=== PATIENT | female | born 1945 | race Caucasian/White ===

== ENCOUNTER 2019-11-08 15:24 | Inpatient (IN) | payer MEDICARE ==
[2019-11-08] MEDS ORDERED: SODIUM CHLORIDE 0.9% 1,000 ML IV STA ×2 (16:03)
[2019-11-08] MEDS ORDERED: VANCOMYCIN IV PER PHARMACY 1 EACH MISC MISCELLANE PRN (16:04)
[2019-11-08] MEDS ORDERED: cefTRIAXone IN SWFI 1,000 MG/10 ML SYRINGE IVP STA (16:04)
[2019-11-08] MEDS ORDERED: SODIUM CHLORIDE 0.9% 500 ML 500 ML IV ONE (16:05)
[2019-11-08] MEDS ORDERED: VANCOMYCIN 2,000 MG in SODIUM CHLORIDE 0.9% 500 ML 500 ML IVPB STA (16:11)
[2019-11-08 16:34] LABS: HCT 33.3 % (34.0-46.0); HGB 10.9 gm/dL (11.4-16.0); MCH 27.7 pg (25.0-35.0); MCHC 32.6 g/dL (31.0-37.0); MCV 84.9 fL (80.0-100.0); Platelet Count 449 k/uL (150-450); RBC 3.93 m/uL (3.80-5.40); RDW 15.2 % (11.5-15.5); WBC 30.4 k/uL (3.8-10.6)
[2019-11-08 16:44] LABS: ALT 22 U/L (4-34); AST 36 U/L (14-36); African American GFR (CKD) >90 (>60 ml/min/1.73 sqM); Albumin 3.1 g/dL (3.5-5.0); Alkaline Phosphatase 157 U/L (38-126); Anion Gap 15 mmol/L; Blood Urea Nitrogen 21 mg/dL (7-17); Calcium 9.1 mg/dL (8.4-10.2); Carbon Dioxide 20 mmol/L (22-30); Chloride 93 mmol/L (98-107); Glucose 403 mg/dL (74-99); Magnesium 1.9 mg/dL (1.6-2.3); Non-African American GFR(CKD) 86 (>60 ml/min/1.73 sqM); Sodium 128 mmol/L (137-145); Total Bilirubin 0.9 mg/dL (0.2-1.3); Total Protein 6.7 g/dL (6.3-8.2)
[2019-11-08 16:58] LABS: Band Neutrophils % 2 %; Lymphocytes # (M) 1.22 k/uL (1.0-4.8); Monocytes # (M) 1.22 k/uL (0-1.0); Neutrophils % (M) 90 %; Nucleated Red Blood Cells 0 /100 WBC (0-0); Total Cells Counted 200
[2019-11-08 16:59] LABS: Prothrombin Time 10.4 sec (9.0-12.0)
[2019-11-08 17:00] LABS: Partial Thromboplastin Time 22.8 sec (22.0-30.0)
--- NOTE | 2019-11-08 17:12 | ED ---
General Adult HPI - General Chief complaint: Weakness Stated complaint: weakness/wound care Time Seen by Provider: 11/08/19 15:46 Source: patient, RN notes reviewed, old records reviewed Mode of arrival: ambulatory Limitations: no limitations - History of Present Illness Initial comments: 74-year-old female presenting for evaluation of weakness, poor appetite, and erythema, swelling and drainage from the right foot. Patient is a diabetic. She has noted some drainage and discoloration of the right foot for the past 3 weeks. She had previous amputation in the remote past. She denies fever. She states she just has not felt well, she's been lightheaded, poor appetite. She denies significant pain in the foot at rest but does report pain with am bulation. - Related Data Home Medications Medication Instructions Recorded Confirmed Aspirin 81 mg PO DAILY 07/14/13 03/22/15 Carvedilol 25 mg PO BID 07/14/13 03/22/15 Furosemide [Lasix] 40 mg PO DAILY 07/14/13 03/22/15 Insulin Glargine [Lantus] 60 unit SQ HS 07/14/13 03/22/15 lisinopriL [Zestril] 2.5 mg PO DAILY 07/14/13 03/22/15 Atorvastatin [Lipitor] 20 mg PO DAILY 06/03/14 03/22/15 Cholecalciferol [Vitamin D3 (25 2,000 unit PO DAILY 06/03/14 03/22/15 Mcg = 1000 Iu)] Insulin Lispro [humaLOG Kwikpen] 10 unit SQ 1200 03/18/15 03/22/15 Insulin Lispro [humaLOG Kwikpen] 10 unit SQ QAM 03/18/15 03/22/15 Insulin Lispro [humaLOG Kwikpen] 30 unit SQ W/SUPPER 03/18/15 03/22/15 Allergies Allergy/AdvReac Type Severity Reaction Status Date / Time clindamycin Allergy Rash/Hives Verified 11/08/19 15:37 Iodinated Contrast Media Allergy Rash/Hives Verified 11/08/19 15:37 [Iodinated Contrast Media - IV Dye] Penicillins Allergy Rapid Verified 11/08/19 15:37 Heart Rate & SOB CRANBERRIES Allergy Rash/Hives Uncoded 11/08/19 15:37 Review of Systems ROS Statement: Those systems with pertinent positive or pertinent negative responses have been documented in the HPI. ROS Other: All systems not noted in ROS Statement are negative. Past Medical History Past Medical History: Diabetes Mellitus, Deep Vein Thrombosis (DVT), Hyperlipidemia, Skin Disorder, Vascular Disorder Additional Past Medical History / Comment(s): see Dr Harvey H&P, PERIPHERAL VASCULAR DISEASE, DVT RT LEG 2013, hernia, hx pancreatitis, bulging disk, arthritis, dry skin Last Myocardial Infarction Date:: 2006 History of Any Multi-Drug Resistant Organisms: None Reported Past Surgical History: AICD, Cholecystectomy, Heart Catheterization With Stent, Orthopedic Surgery Additional Past Surgical History / Comment(s): amputation small toe rt foot. Past Anesthesia/Blood Transfusion Reactions: No Reported Reaction Date of Last Stent Placement:: 2006 Type of Cardiac Device: AICD Device Placement Date:: 2006 [facility] Past Psychological History: No Psychological Hx Reported Smoking Status: Never smoker Past Alcohol Use History: None Reported Past Drug Use History: None Reported - Past Family History Father Family Medical History: Cancer General Exam Limitations: no limitations General appearance: alert, in no apparent distress Head exam: Present: atraumatic, normocephalic Eye exam: Present: normal appearance, PERRL ENT exam: Present: normal exam Respiratory exam: Present: normal lung sounds bilaterally. Absent: respiratory distress, wheezes Cardiovascular Exam: Present: regular rate, normal rhythm GI/Abdominal exam: Present: soft. Absent: distended, tenderness, guarding Extremities exam: Present: other (Right foot, there is significant soft tissue swelling, erythema, ulceration on the plantar surface with surrounding necrotic tissue oh. There is some purulent drainage as well. There is swelling throughout the foot and ankle. Delayed cap refill.) Neurological exam: Present: alert, oriented X3, CN II-XII intact. Absent: motor sensory deficit Psychiatric exam: Present: normal affect, normal mood Course Vital Signs 11/08/19 15:33 Temperature 98.6 F Pulse Rate 60 Respiratory 18 Rate Blood Pressure 91/56 O2 Sat by Pulse 96 Oximetry EKG Findings - EKG Comments: EKG Findings:: EKG: Sinus rhythm with a first-degree AV block Q waves inferior leads with T-wave inversion, no ST segment elevation rate of 74, DE interval 210, QRS duration 124, QTC 483. Procedures - Sepsis Sepsis Focused Exam #1 Time Sepsis Criteria Met: 16:30 Sepsis Focused Exam Complete: Yes Vital Signs & RN Notes Reviewed: Yes Capillary Refill: < 2 Seconds: Fingers, > 2 Seconds: Toes Peripheral Pulses: Normal: Radial (R), Radial (L) Skin Color: Normal for Patient Respiratory Exam: normal lung sounds Cardiovascular Exam: regular rate, normal rhythm Medical Decision Making - Medical Decision Making 74-year-old female presenting with right foot infection, generalized weakness. Patient has a significant soft tissue infection of the right foot ulceration and necrotic tissue. The foot is swollen, erythematous. She is afebrile with initial blood pressure in the 90s otherwise stable. X-ray showing this ulceration, no signs of osteomyelitis. She has a significantly elevated white blood cell count of 30,000. Normal lactic acid. Hyponatremia with sodium 128. She started on ceftriaxone and vancomycin in the emergency department. She's been admitted to internal medicine with both infectious disease and vascular surgery on consult. - Lab Data Result diagrams: 11/08/19 16:18 11/08/19 16:18 Lab Results 11/08/19 11/08/19 11/08/19 Range/Units 16:18 16:18 16:18 WBC 30.4 H (3.8-10.6) k/uL RBC 3.93 (3.80-5.40) m/uL Hgb 10.9 L (11.4-16.0) gm/dL Hct 33.3 L (34.0-46.0) % MCV 84.9 (80.0-100.0) fL MCH 27.7 (25.0-35.0) pg MCHC 32.6 (31.0-37.0) g/dL RDW 15.2 (11.5-15.5) % Plt Count 449 (150-450) k/uL Neutrophils % (Manual) 90 % Band Neutrophils % 2 % Lymphocytes % (Manual) 4 % Monocytes % (Manual) 4 % Neutrophils # (Manual) 27.90 H (1.3-7.7) k/uL Lymphocytes # (Manual) 1.22 (1.0-4.8) k/uL Monocytes # (Manual) 1.22 H (0-1.0) k/uL Nucleated RBCs 0 (0-0) /100 WBC Manual Slide Review Performed PT 10.4 (9.0-12.0) sec INR 1.0 (<1.2) APTT 22.8 (22.0-30.0) sec Sodium 128 L (137-145) mmol/L Potassium 5.0 (3.5-5.1) mmol/L Chloride 93 L (98-107) mmol/L Carbon Dioxide 20 L (22-30) mmol/L Anion Gap 15 mmol/L BUN 21 H (7-17) mg/dL Creatinine 0.68 (0.52-1.04) mg/dL Est GFR (CKD-EPI)AfAm >90 (>60 ml/min/1.73 sqM) Est GFR (CKD-EPI)NonAf 86 (>60 ml/min/1.73 sqM) Glucose 403 H (74-99) mg/dL Plasma Lactic Acid Otis (0.7-2.0) mmol/L Calcium 9.1 (8.4-10.2) mg/dL Magnesium 1.9 (1.6-2.3) mg/dL Total Bilirubin 0.9 (0.2-1.3) mg/dL AST 36 (14-36) U/L ALT 22 (4-34) U/L Alkaline Phosphatase 157 H (38-126) U/L Total Protein 6.7 (6.3-8.2) g/dL Albumin 3.1 L (3.5-5.0) g/dL 11/08/19 Range/Units 16:18 WBC (3.8-10.6) k/uL RBC (3.80-5.40) m/uL Hgb (11.4-16.0) gm/dL Hct (34.0-46.0) % MCV (80.0-100.0) fL MCH (25.0-35.0) pg MCHC (31.0-37.0) g/dL RDW (11.5-15.5) % Plt Count (150-450) k/uL Neutrophils % (Manual) % Band Neutrophils % % Lymphocytes % (Manual) % Monocytes % (Manual) % Neutrophils # (Manual) (1.3-7.7) k/uL Lymphocytes # (Manual) (1.0-4.8) k/uL Monocytes # (Manual) (0-1.0) k/uL Nucleated RBCs (0-0) /100 WBC Manual Slide Review PT (9.0-12.0) sec INR (<1.2) APTT (22.0-30.0) sec Sodium (137-145) mmol/L Potassium (3.5-5.1) mmol/L Chloride (98-107) mmol/L Carbon Dioxide (22-30) mmol/L Anion Gap mmol/L BUN (7-17) mg/dL Creatinine (0.52-1.04) mg/dL Est GFR (CKD-EPI)AfAm (>60 ml/min/1.73 sqM) Est GFR (CKD-EPI)NonAf (>60 ml/min/1.73 sqM) Glucose (74-99) mg/dL Plasma Lactic Acid Otis 1.2 (0.7-2.0) mmol/L Calcium (8.4-10.2) mg/dL Magnesium (1.6-2.3) mg/dL Total Bilirubin (0.2-1.3) mg/dL AST (14-36) U/L ALT (4-34) U/L Alkaline Phosphatase (38-126) U/L Total Protein (6.3-8.2) g/dL Albumin (3.5-5.0) g/dL Critical Care Time Critical Care Time: Yes Total Critical Care Time: 35 Disposition Clinical Impression: Diabetic foot ulcer, Cellulitis, Sepsis Disposition: ADMITTED IP TO THIS [facility] Condition: Stable Is patient prescribed a controlled substance at d/c from ED?: No Referrals: Richard Rodriguez DO [Primary Care Provider] - 1-2 days Decision to Admit Reason: Admit from EC Decision Date: 11/08/19 Decision Time: 17:54
--- NOTE | 2019-11-08 17:13 | XR ---
EXAMINATION TYPE: XR foot complete RT DATE OF EXAM: 11/08/2019 COMPARISON: NONE HISTORY: Soft tissue infection TECHNIQUE: 3 views FINDINGS: There is absence of the little toe and the fifth metatarsal head. There is soft tissue swel ling of the forefoot. There is soft tissue swelling on the plantar aspect of the mid and hindfoot. Th ere is large plantar calcaneal spur. There is also defect on the plantar aspect of the mid foot. Ther e is sclerosis and some spurring at the tarsometatarsal joints. IMPRESSION: Soft tissue swelling. Ulceration deformity. No specific sign of osteomyelitis. There is p robably some neuropathic arthropathy in the mid foot.
[2019-11-08] MEDS ORDERED: NALOXONE 0.4 MG/ML 1 ML VIAL IV PRN (17:49)
[2019-11-08] MEDS ORDERED: METOCLOPRAMIDE 5 MG/ML 2 ML VIAL IVP STA (19:33)
[2019-11-08] MEDS ORDERED: CALCIUM CARBONATE 500 MG CHEWABLE PO PRN (21:03)
[2019-11-08] MEDS ORDERED: MAGNESIUM HYDROXIDE 2,400 MG/10 ML CUP PO PRN (21:03)
[2019-11-08] MEDS ORDERED: MAG HYDROX/AL HYDROX/SIMETH 30 ML CUP PO PRN (21:03)
[2019-11-08] MEDS ORDERED: LACTULOSE 20 GM/30 ML CUP PO PRN (21:03)
--- NOTE | 2019-11-08 21:29 | P.HPIM ---
History of Present Illness H&P Date: 11/08/19 Chief Complaint: infected draining right foot History of presenting complaint: This is a pleasant 74-year-old patient of Dr. Rodriguez. Chronic stable medical conditions include hyperlipidemia, diabetic peripheral neuropathy, peripheral arterial disease, deviated the right leg 2012, herniated disc, primary osteoarthritis coronary artery disease with stent. Patient lives at home with her son. Pretty much using a wheelchair. However 3 weeks ago she noticed a callus at the bottom of the foot. It opened up. She and she was using her own treatment including putting alcohol swabs in it. It progressed to get worse started draining more. One of patient's daughter called in today and decided bring the patient to the ER. Right foot is draining swollen edema is. Patient has neuropathy has does not have any pain in the foot. Has lost appetite for last 3 weeks. Denies any obvious fever and chills. Daughter the bedside. Patient lives with her son Bowen. Who works at the [employer] store. Review of systems: GEN.: Tired decreased appetite EYES: None HEENT: None NECK: None RESPIRATORY: None CARDIOVASCULAR: None GASTROINTESTINAL: None GENITOURINARY: None MUSCULOSKELETAL: Joint pains LYMPHATICS: None HEMATOLOGICAL: None PSYCHIATRY: None NEUROLOGICAL: Peripheral neuropathy Past medical history to include: Diabetes, hyperlipidemia, peripheral artery disease, DVT in the right leg 2012, and tinnitus, herniated disc, arthritis, coronary artery disease with stent, AICD Social history: Patient smoked for many years stopped in 2006. The throat is unremarkable. Normally uses a wheelchair to get about. Physical examination: VITAL SIGNS: 100.2, 80, 19, 131/70, 98% on room air GENERAL: 38.7, laying in bed tired appearing awake. EYES: Pupils equal. Conjunctiva normal. HEENT: External appearance of nose and ears normal, oral cavity grossly normal. NECK: JVD not raised; masses not palpable. HEART: First and second heart sounds are normal; no edema. LUNGS: Respiratory rate normal; decreased breath sounds. ABDOMEN: Soft, nontender, liver spleen not palpable, no masses palpable. PSYCH: Alert and oriented x3; mood and affect normal. NEUROLOGICAL: [Cranial nerves grossly intact; no facial asymmetry, decreased sensation distally EXTREMITY: Right foot is covered redness swollen large callus that is broken down at the plantar service for drainage boggy foot LYMPHATICS: No lymph nodes palpable in the axilla and neck INVESTIGATIONS, reviewed in the clinical context: White count 30.4 hemoglobin 10.9 increased neutrophils sodium 128 potassium 5 creatinine 0.68 glucose 403, albumin 3.1 EKG tracing personally reviewed by me-normal sinus rhythm nonspecific ST segment changes Foot x-ray soft tissue swelling no obvious signs of osteomyelitis some findings of neuropathy, arthropathy Assessment: -This is a patient with diabetic peripheral neuropathy no sensation to foot noticed 3 weeks ago callus that broke down foot has been swollen and draining. This is a very large opening on the bottom of the foot very infected. More likely than not patient would probably need amputation. We'll have the final determination done by vascular surgery were consulted. -Right foot severe cellulitis with abscess causing sepsis -Right foot diabetic foot wound on the plantar surface -Obesity BMI 38.7 -Diabetes mellitus type 2 chronically on insulin uncontrolled with hypoglycemia -Coronary artery disease per history of stent -Hyper lipidemia -Essential hypertension -Peripheral arterial disease -Primary osteoarthritis -AICD Plan: Care was discussed with the patient and daughter the bedside. Did discuss the possibility of amputation. Patient started on vancomycin and will put the patient on cefepime. Auscultation made to vascular surgery 90. Home medications will be resumed. Lovenox for DVT prophylaxis. Will also consult cardiology for perioperative management. Past Medical History Past Medical History: Diabetes Mellitus, Deep Vein Thrombosis (DVT), Hyperlipidemia, Skin Disorder, Vascular Disorder Additional Past Medical History / Comment(s): see Dr Harvey H&P, PERIPHERAL VASCULAR DISEASE, DVT RT LEG 2012, hernia, hx pancreatitis, bulging disk, arthritis, dry skin Last Myocardial Infarction Date:: 2006 History of Any Multi-Drug Resistant Organisms: None Reported Past Surgical History: AICD, Cholecystectomy, Heart Catheterization With Stent, Orthopedic Surgery Additional Past Surgical History / Comment(s): amputation small toe rt foot. Past Anesthesia/Blood Transfusion Reactions: No Reported Reaction Date of Last Stent Placement:: 2006 Type of Cardiac Device: AICD Device Placement Date:: 2006 [facility] Past Psychological History: No Psychological Hx Reported Smoking Status: Never smoker Past Alcohol Use History: None Reported Past Drug Use History: None Reported - Past Family History Father Family Medical History: Cancer Medications and Allergies Home Medications Medication Instructions Recorded Confirmed Type Aspirin 81 mg PO DAILY 07/14/13 03/22/15 History Carvedilol 25 mg PO BID 07/14/13 03/22/15 History Furosemide [Lasix] 40 mg PO DAILY 07/14/13 03/22/15 History Insulin Glargine [Lantus] 60 unit SQ HS 07/14/13 03/22/15 History lisinopriL [Zestril] 2.5 mg PO DAILY 07/14/13 03/22/15 History Atorvastatin [Lipitor] 20 mg PO DAILY 06/03/14 03/22/15 History Cholecalciferol [Vitamin D3 (25 2,000 unit PO DAILY 06/03/14 03/22/15 History Mcg = 1000 Iu)] Insulin Lispro [humaLOG Kwikpen] 10 unit SQ 1200 03/18/15 03/22/15 History Insulin Lispro [humaLOG Kwikpen] 10 unit SQ QAM 03/18/15 03/22/15 History Insulin Lispro [humaLOG Kwikpen] 30 unit SQ W/SUPPER 03/18/15 03/22/15 History Allergies Allergy/AdvReac Type Severity Reaction Status Date / Time clindamycin Allergy Rash/Hives Verified 11/08/19 21:19 Iodinated Contrast Media Allergy Rash/Hives Verified 11/08/19 21:19 [Iodinated Contrast Media - IV Dye] Penicillins Allergy Rapid Verified 11/08/19 21:19 Heart Rate & SOB CRANBERRIES Allergy Rash/Hives Uncoded 11/08/19 21:19 Physical Exam Vitals: Vital Signs Temp Pulse Pulse Resp BP BP Pulse Ox 11/08/19 20:34 100.2 F H 80 19 131/70 98 11/08/19 19:00 98.4 F 16 L 18 136/72 96 11/08/19 18:24 73 16 131/73 98 11/08/19 15:33 98.6 F 60 18 91/56 96 Intake and Output 11/08/19 11/08/19 11/08/19 06:59 14:59 22:59 Other: Weight 108.862 kg Results CBC & Chem 7: 11/08/19 16:18 11/08/19 16:18 Labs: Abnormal Lab Results - Last 24 Hours (Table) 11/08/19 11/08/19 Range/Units 16:18 16:18 WBC 30.4 H (3.8-10.6) k/uL Hgb 10.9 L (11.4-16.0) gm/dL Hct 33.3 L (34.0-46.0) % Neutrophils # (Manual) 27.90 H (1.3-7.7) k/uL Monocytes # (Manual) 1.22 H (0-1.0) k/uL Sodium 128 L (137-145) mmol/L Chloride 93 L (98-107) mmol/L Carbon Dioxide 20 L (22-30) mmol/L BUN 21 H (7-17) mg/dL Glucose 403 H (74-99) mg/dL Alkaline Phosphatase 157 H (38-126) U/L Albumin 3.1 L (3.5-5.0) g/dL
[2019-11-08 21:43] LABS: Glucose,Whole Blood 441 mg/dL (75-99)
[2019-11-08] MEDS ORDERED: INSULIN ASPART (NovoLOG) 100 UNIT/ML VIAL SQ PRN ×2 (21:59)
[2019-11-08 23:22] LABS: Glucose,Whole Blood 423 mg/dL (75-99)
[2019-11-08] MEDS: CEFEPIME 1 GM in SODIUM CHLORIDE 0.9% 50 ML IVPB SCH (23:42)
[2019-11-08] MEDS: ACETAMINOPHEN TAB 325 MG TAB PO PRN (23:47)
[2019-11-08] MEDS: MELATONIN 3 MG TABLET PO PRN (23:47)
[2019-11-08] MEDS: PANTOPRAZOLE 40 MG TABLET PO SCH (23:47)
[2019-11-08] MEDS: INSULIN DETEMIR (LEVEMIR) 100 UNIT/ML SYR SQ SCH (23:48)
[2019-11-08] MEDS: INSULIN ASPART (NovoLOG) 100 UNIT/ML VIAL SQ SCH (23:48)
[2019-11-09 04:21] LABS: Glucose,Whole Blood 222 mg/dL (75-99)
[2019-11-09] MEDS: VANCOMYCIN 1,750 MG in SODIUM CHLORIDE 0.9% 500 ML 500 ML IVPB SCH (06:00)
[2019-11-09 07:29] LABS: Glucose,Whole Blood 154 mg/dL (75-99)
[2019-11-09] MEDS: INSULIN ASPART (NovoLOG) 100 UNIT/ML VIAL SQ SCH ×4 (07:47→21:02)
[2019-11-09] MEDS: PANTOPRAZOLE 40 MG TABLET PO SCH ×2 (07:48→17:34)
[2019-11-09] MEDS: ATORVASTATIN 20 MG TAB PO SCH (07:48)
[2019-11-09] MEDS: ASPIRIN 81 MG PO SCH (07:48)
[2019-11-09] MEDS: CEFEPIME 1 GM in SODIUM CHLORIDE 0.9% 50 ML IVPB SCH ×2 (09:30→21:04)
[2019-11-09 11:52] LABS: Glucose,Whole Blood 151 mg/dL (75-99)
[2019-11-09] MEDS: ACETAMINOPHEN TAB 325 MG TAB PO PRN ×2 (12:02→19:28)
[2019-11-09 12:51] VITALS: BMI 38.7
--- NOTE | 2019-11-09 15:32 | P.PN ---
Progress Note - Text Progress Note Date: 11/09/19 Chief Complaint: infected draining right foot History of presenting complaint: This is a pleasant 74-year-old patient of Dr. Rodriguez. Chronic stable medical conditions include hyperlipidemia, diabetic peripheral neuropathy, peripheral arterial disease, deviated the right leg 2013, herniated disc, primary osteoarthritis coronary artery disease with stent. Patient lives at home with her son. Pretty much using a wheelchair. However 3 weeks ago she noticed a callus at the bottom of the foot. It opened up. She and she was using her own treatment including putting alcohol swabs in it. It progressed to get worse started draining more. One of patient's daughter called in today and decided bring the patient to the ER. Right foot is draining swollen edema is. Patient has neuropathy has does not have any pain in the foot. Has lost appetite for last 3 weeks. Denies any obvious fever and chills. Daughter the bedside. Patient lives with her son Bowen. Who works at the [employer] store. Today-laying in bed. Physically better. Was able to tolerate a liquid diet. Less nausea. Accu-Cheks are better. Her daughter the bedside. On IV antibiotics. Review of systems: Was done for constitutional, cardiovascular, GI, pulmonary. relevant finding as above Active Medications Acetaminophen (Tylenol Tab) 650 mg PO Q6HR PRN PRN Reason: Mild Pain or Fever > 100.5 Last Admin: 11/09/19 12:02 Dose: 650 mg Documented by: Al Hydroxide/Mg Hydroxide (Maalox) 15 ml PO Q6HR PRN PRN Reason: Indigestion Aspirin (Aspirin) 81 mg PO DAILY [facility] Last Admin: 11/09/19 07:48 Dose: 81 mg Documented by: Atorvastatin Calcium (Lipitor) 20 mg PO DAILY [facility] Last Admin: 11/09/19 07:48 Dose: 20 mg Documented by: Calcium Carbonate/Glycine (Tums) 1,000 mg PO Q4HR PRN PRN Reason: Dyspepsia Vancomycin HCl 1,750 mg/ (Sodium Chloride) 500 mls @ 167 mls/hr IVPB Q16H [facility] Last Admin: 11/09/19 06:00 Dose: 167 mls/hr Documented by: Cefepime HCl 1 gm/ Sodium (Chloride) 50 mls @ 12.5 mls/hr IVPB Q12HR [facility] Last Admin: 11/09/19 09:30 Dose: 12.5 mls/hr Documented by: Insulin Aspart (Novolog) 0 unit SQ ACHS [facility]; Protocol Last Admin: 11/09/19 12:00 Dose: 2 unit Documented by: Insulin Aspart (Novolog) 12 unit SQ ACHS PRN PRN Reason: Blood Sugar - High Last Admin: 11/08/19 23:48 Dose: 12 unit Documented by: Insulin Aspart (Novolog) 6 unit SQ ACHS PRN PRN Reason: Blood Sugar - High Insulin Detemir (Levemir) 60 unit SQ HS [facility] Last Admin: 11/08/19 23:48 Dose: 60 unit Documented by: Lactulose (Cephulac) 20 gm PO DAILY PRN PRN Reason: Constipation Lisinopril (Zestril) 2.5 mg PO DAILY [facility] Last Admin: 11/09/19 07:48 Dose: 2.5 mg Documented by: Magnesium Hydroxide (Milk Of Magnesia) 2,400 mg PO DAILY PRN PRN Reason: Constipation Melatonin (Melatonin) 3 mg PO HS PRN PRN Reason: Insomnia Last Admin: 11/08/19 23:47 Dose: 3 mg Documented by: Naloxone HCl (Narcan) 0.2 mg IV Q2M PRN PRN Reason: Opioid Reversal Ondansetron HCl (Zofran) 4 mg IVP Q8HR PRN PRN Reason: Nausea And Vomiting Pantoprazole Sodium (Protonix) 40 mg PO AC-BID [facility] Last Admin: 11/09/19 07:48 Dose: 40 mg Documented by: Physical examination: VITAL SIGNS: 98.3, 65, 16, 136/56, 98% room air GENERAL: Propped up in bed, awake, comfortable EYES: Pupils equal. Conjunctiva normal. HEENT: External appearance of nose and ears normal, oral cavity grossly normal. NECK: JVD not raised; masses not palpable. HEART: First and second heart sounds are normal; no edema. LUNGS: Respiratory rate normal; decreased breath sounds. ABDOMEN: Soft, nontender, liver spleen not palpable, no masses palpable. PSYCH: Alert and oriented x3; mood and affect normal. NEUROLOGICAL: [Cranial nerves grossly intact; no facial asymmetry, decreased sensation distally EXTREMITY: Right foot is covered redness swollen large callus that is broken down at the plantar service for drainage boggy foot INVESTIGATIONS, reviewed in the clinical context: [id number], [id number], 151 Previous testing White count 30.4 hemoglobin 10.9 increased neutrophils sodium 128 potassium 5 creatinine 0.68 glucose 403, albumin 3.1 EKG tracing personally reviewed by me-normal sinus rhythm nonspecific ST segment changes Foot x-ray soft tissue swelling no obvious signs of osteomyelitis some findings of neuropathy, arthropathy Assessment: -This is a patient with diabetic peripheral neuropathy no sensation to foot noticed 3 weeks ago callus that broke down foot has been swollen and draining. This is a very large opening on the bottom of the foot very infected. More likely than not patient would probably need disarticulation. We'll have the final determination done by vascular surgery were consulted. Patient possibly has underlying Charcot foot-uncontrolled -Right foot severe cellulitis with abscess causing sepsis -Right foot diabetic foot wound on the plantar surface -Obesity BMI 38.7 -Diabetes mellitus type 2 chronically on insulin uncontrolled with hyperglycemia -Coronary artery disease per history of stent -Hyper lipidemia -Essential hypertension -Peripheral arterial disease -Primary osteoarthritis -AICD -Severe diabetic peripheral neuropathy Plan: Care was discussed with the patient and daughter the bedside. Did speak to Dr. Sarkar. She'll evaluate the patient. Continue his IV antibiotics. Check labs. We will also consult cardiology for perioperative management.
--- NOTE | 2019-11-09 16:01 | XR ---
EXAMINATION TYPE: XR chest 2V DATE OF EXAM: 11/09/2019 COMPARISON: 06/10/2012 HISTORY: 74-year-old female preoperative evaluation TECHNIQUE: AP and lateral views FINDINGS: Left anterior chest wall ICD generator with a right atrial and right ventricular leads. Heart mildly enlarged. Mild interstitial prominence is unchanged. No consolidation or pleural effusion. [facility] withi n the thoracic spine. IMPRESSION: Mild cardiomegaly. DISH in the thoracic spine. No acute process seen.
[2019-11-09 17:20] LABS: Glucose,Whole Blood 132 mg/dL (75-99)
[2019-11-09 20:28] LABS: Glucose,Whole Blood 216 mg/dL (75-99)
[2019-11-09] MEDS: INSULIN DETEMIR (LEVEMIR) 100 UNIT/ML SYR SQ SCH (21:02)
[2019-11-09] MEDS: MELATONIN 3 MG TABLET PO PRN (21:04)
[2019-11-09 23:04] LABS: Appearance,Urine Turbid (Clear); Bacteria,Urine Moderate /hpf; Bilirubin,Urine Negative (Negative); Blood,Urine Moderate (Negative); Budding Yeast,Urine Occasional /hpf; Color,Urine Yellow; Glucose,Urine (UA) 4+ (Negative); Ketones,Urine 1+ (Negative); Leukocyte Esterase,Urine Large (Negative); Mucus,Urine Rare /hpf; Nitrite,Urine Negative (Negative); Protein,Urine 2+ (Negative); RBC,Urine 5 /hpf (0-5); Specific Gravity,Urine 1.022 (1.001-1.035); Squamous Epithelial Cell,Urine 30 /hpf (0-4); Urobilinogen,Urine <2.0 mg/dL (<2.0); WBC,Urine 36 /hpf (0-5)
--- NOTE | 2019-11-09 23:19 | P.CONS ---
History of Present Illness - Reason for Consult Consult date: 11/09/19 Right diabetic foot infection Requesting physician: Yao Olivas - Chief Complaint Right foot swelling and redness and discoloration x 3 weeks - History of Present Illness Patient is a 74-year-old female with a past medical history significant for right diabetic foot infection requiring amputation of the right fifth toe many years ago patient presented to [facility] yesterday for evaluation of weakness poor appetite erythema swelling and drainage from the right foot that has been going on for the last 3 weeks, patient denies any history of any trauma patient to have underlying diabetic neuropathy denies having any pain in the right foot patient noticed to have a discussion mostly on the lateral border of the right foot with erythema involving most of her right foot area which is red and there is some drainage as well the patient said she initially noticed when she finds some blood on her socks patient has been trying to manage her wound at home however did not have any improvement subsequently presented to [facility] with the patient has been evaluated by the physician, patient did have a low-grade fever 100.2 she did have a white count of 30,000 kidney function has been normal, liver enzymes are normal, patient did have x-rays of the right foot we did show soft tissue swelling ulceration deformityof the signs of osteomyelitis patient has been started on vancomycin and cefepime infectious disease was consulted for further management of antibiotic therapy Review of Systems Positive point has been mentioned in the HPI rest of the systems are negative Past Medical History Past Medical History: Diabetes Mellitus, Deep Vein Thrombosis (DVT), Hearing Disorder / Deafness, Hyperlipidemia, Myocardial Infarction ([place]), Skin Disorder, Vascular Disorder Additional Past Medical History / Comment(s): PERIPHERAL VASCULAR DISEASE, DVT RT LEG 2012, hernia, hx pancreatitis, bulging disk, arthritis, dry skin, hard of hearing Last Myocardial Infarction Date:: 2006 History of Any Multi-Drug Resistant Organisms: None Reported Past Surgical History: AICD, Cholecystectomy, Heart Catheterization With Stent, Orthopedic Surgery Additional Past Surgical History / Comment(s): amputation small toe rt foot. Past Anesthesia/Blood Transfusion Reactions: No Reported Reaction Date of Last Stent Placement:: 2006 Type of Cardiac Device: AICD Device Placement Date:: 2006 [facility] Past Psychological History: No Psychological Hx Reported Smoking Status: Never smoker Past Alcohol Use History: None Reported Additional Past Alcohol Use History / Comment(s): quit smoking 2007 Past Drug Use History: None Reported - Past Family History Father Family Medical History: Cancer Medications and Allergies Home Medications Medication Instructions Recorded Confirmed Type Aspirin 81 mg PO DAILY 07/14/13 11/08/19 History Carvedilol 25 mg PO BID 07/14/13 11/08/19 History Furosemide [Lasix] 40 mg PO DAILY 07/14/13 11/08/19 History lisinopriL [Zestril] 2.5 mg PO DAILY 07/14/13 11/08/19 History Insulin Lispro [humaLOG Kwikpen] 7 unit SQ W/BRKFST 03/18/15 11/08/19 History Insulin Lispro [humaLOG Kwikpen] 19 unit SQ W/LUNCH 03/18/15 11/08/19 History Insulin Lispro [humaLOG Kwikpen] 26 unit SQ W/SUPPER 03/18/15 11/08/19 History Insulin Glargine,Hum.rec.anlog 30 unit SQ DAILY 11/08/19 11/08/19 History [Lantus Solostar] Insulin Glargine,Hum.rec.anlog 60 unit SQ HS 11/08/19 11/08/19 History [Lantus Solostar] Allergies Allergy/AdvReac Type Severity Reaction Status Date / Time clindamycin Allergy Rash/Hives Verified 11/08/19 21:19 Iodinated Contrast Media Allergy Rash/Hives Verified 11/08/19 21:19 [Iodinated Contrast Media - IV Dye] Penicillins Allergy Rapid Verified 11/08/19 21:19 Heart Rate & SOB CRANBERRIES Allergy Rash/Hives Uncoded 11/08/19 21:19 Physical Exam Vitals: Vital Signs Temp Pulse Pulse Resp BP BP Pulse Ox 11/09/19 14:44 97.6 F 79 16 134/62 99 11/09/19 07:00 98.3 F 65 16 136/56 98 11/09/19 04:52 18 11/09/19 02:12 98.4 F 71 18 105/50 96 11/08/19 23:45 18 11/08/19 21:30 19 11/08/19 20:34 100.2 F H 80 19 131/70 98 11/08/19 19:00 98.4 F 16 L 18 136/72 96 11/08/19 18:24 73 16 131/73 98 Intake and Output 11/09/19 11/09/19 11/09/19 06:59 14:59 22:59 Intake Total 440 Balance 440 Intake: Oral 440 Other: Voiding Method Bedpan Bedpan # Voids 1 2 Weight 108.862 kg GENERAL DESCRIPTION: An elderly female lying in bed, no distress. No tachypnea or accessory muscle of respiration use. HEENT: Shows Pallor , no scleral icterus. Oral mucous membrane is dry. No pharyngeal erythema or thrush NECK: Trachea central, no thyromegaly. LUNGS: Unlabored breathing. Clear to auscultation anteriorly. No wheeze or crackle. HEART: S1, S2, regular rate and rhythm. No loud murmur ABDOMEN: Soft, no tenderness , guarding or rigidity, no organomegaly EXTREMITIES: Right foot did have significant swelling redness with a wound on the plantar aspect, on the right lateral aspect did have necrotic changes and surrounding redness along with foul-smelling drainage SKIN: No rash, no masses palpable. NEUROLOGICAL: The patient is awake, alert, oriented x3, mood and affect normal. Results CBC & Chem 7: 11/08/19 16:18 11/08/19 16:18 Labs: Abnormal Lab Results - Last 24 Hours (Table) 11/08/19 11/08/19 11/08/19 Range/Units 16:18 16:18 21:33 WBC 30.4 H (3.8-10.6) k/uL Hgb 10.9 L (11.4-16.0) gm/dL Hct 33.3 L (34.0-46.0) % Neutrophils # (Manual) 27.90 H (1.3-7.7) k/uL Monocytes # (Manual) 1.22 H (0-1.0) k/uL Sodium 128 L (137-145) mmol/L Chloride 93 L (98-107) mmol/L Carbon Dioxide 20 L (22-30) mmol/L BUN 21 H (7-17) mg/dL Glucose 403 H (74-99) mg/dL POC Glucose (mg/dL) 441 H (75-99) mg/dL Alkaline Phosphatase 157 H (38-126) U/L Albumin 3.1 L (3.5-5.0) g/dL 11/08/19 11/09/19 11/09/19 Range/Units 23:17 04:15 07:26 WBC (3.8-10.6) k/uL Hgb (11.4-16.0) gm/dL Hct (34.0-46.0) % Neutrophils # (Manual) (1.3-7.7) k/uL Monocytes # (Manual) (0-1.0) k/uL Sodium (137-145) mmol/L Chloride (98-107) mmol/L Carbon Dioxide (22-30) mmol/L BUN (7-17) mg/dL Glucose (74-99) mg/dL POC Glucose (mg/dL) 423 H 222 H 154 H (75-99) mg/dL Alkaline Phosphatase (38-126) U/L Albumin (3.5-5.0) g/dL 11/09/19 Range/Units 11:50 WBC (3.8-10.6) k/uL Hgb (11.4-16.0) gm/dL Hct (34.0-46.0) % Neutrophils # (Manual) (1.3-7.7) k/uL Monocytes # (Manual) (0-1.0) k/uL Sodium (137-145) mmol/L Chloride (98-107) mmol/L Carbon Dioxide (22-30) mmol/L BUN (7-17) mg/dL Glucose (74-99) mg/dL POC Glucose (mg/dL) 151 H (75-99) mg/dL Alkaline Phosphatase (38-126) U/L Albumin (3.5-5.0) g/dL Assessment and Plan Assessment: 1-patient with extensive right diabetic foot infection With a chronic changes on the right lateral border as well as a wound on the plantar aspect with a previous history of right fifth toe diabetic foot infection requiring amputation of the right fifth toe will need to cover for the polymicrobial nahum associated with these type of infection 2-Patient with multiple antibiotic ALLERGIES that would limit the number of antibiotic safe to use (1) Cellulitis of right foot Current Visit: Yes Status: Acute Code(s): L03.115 - CELLULITIS OF RIGHT LOWER LIMB SNOMED Code(s): 521286436 (2) Diabetic foot ulcer Current Visit: Yes Status: Acute Code(s): E11.621 - TYPE 2 DIABETES MELLITUS WITH FOOT ULCER; L97.509 - NON-PRESSURE CHRONIC ULCER OTH PRT UNSP FOOT W UNSP SEVERITY SNOMED Code(s): 949231101 Plan: 1- Vancomycin pharmacy to dose target trough of 15 while watching his kidney function and Vanco trough closely 2- cefepime 1 g every 12, dose has been cut back by the pharmacy to the kidney function 3- await vascular surgery evaluation debridement and deep culture We will follow on clinical condition and cultures to further adjust medication if needed Thank you for this consultation will follow this patient with you Time with Patient: Greater than 30
[2019-11-10] MEDS: VANCOMYCIN 1,750 MG in SODIUM CHLORIDE 0.9% 500 ML 500 ML IVPB SCH ×3 (00:01→18:29)
[2019-11-10] MEDS: ONDANSETRON 4 MG/2 ML VIAL IVP PRN (02:02)
[2019-11-10] MEDS: ASPIRIN 81 MG PO SCH (06:46)
[2019-11-10 07:07] LABS: Glucose,Whole Blood 67 mg/dL (75-99)
[2019-11-10 07:45] LABS: Glucose,Whole Blood 68 mg/dL (75-99)
[2019-11-10 08:04] LABS: Glucose,Whole Blood 72 mg/dL (75-99)
[2019-11-10] MEDS: INSULIN ASPART (NovoLOG) 100 UNIT/ML VIAL SQ SCH ×3 (08:22→19:43)
[2019-11-10] MEDS: PANTOPRAZOLE 40 MG TABLET PO SCH ×3 (08:28→20:34)
[2019-11-10] MEDS: ATORVASTATIN 20 MG TAB PO SCH (08:28)
[2019-11-10] MEDS: CEFEPIME 1 GM in SODIUM CHLORIDE 0.9% 50 ML IVPB SCH (08:46)
[2019-11-10 09:54] LABS: HCT 35.6 % (34.0-46.0); HGB 11.1 gm/dL (11.4-16.0); Hypochromasia Slight; MCHC 31.3 g/dL (31.0-37.0); Mean Platelet Volume 7.8; Platelet Count 423 k/uL (150-450); RBC 4.13 m/uL (3.80-5.40); RDW 15.1 % (11.5-15.5); WBC 24.7 k/uL (3.8-10.6)
[2019-11-10 10:03] LABS: Albumin 2.8 g/dL (3.5-5.0); Potassium 3.5 mmol/L (3.5-5.1); Total Bilirubin 0.5 mg/dL (0.2-1.3); Total Protein 6.4 g/dL (6.3-8.2)
[2019-11-10 11:11] LABS: Glucose,Whole Blood 76 mg/dL (75-99)
[2019-11-10 12:09] LABS: Glucose,Whole Blood 88 mg/dL (75-99)
--- NOTE | 2019-11-10 13:09 | P.PN ---
Subjective 74-year-old patient of Dr. Rodriguez. Chronic stable medical conditions include hyperlipidemia, diabetic peripheral neuropathy, peripheral arterial disease, deviated the right leg 2013, herniated disc, primary osteoarthritis coronary artery disease with stent. Patient lives at home with her son. Pretty much using a wheelchair. However 3 weeks ago she noticed a callus at the bottom of the foot. It opened up. She and she was using her own treatment including putting alcohol swabs in it. It progressed to get worse started draining more. One of patient's daughter called in today and decided bring the patient to the ER. Right foot is draining swollen edema is. Patient has neuropathy has does not have any pain in the foot. Has lost appetite for last 3 weeks. Denies any obvious fever and chills. Daughter the bedside. Patient lives with her son Bowen. Who works at the [employer] store. Today-laying in bed. Physically better. Was able to tolerate a liquid diet. Less nausea. Accu-Cheks are better. Her daughter the bedside. On IV antibiotics. 11/10/2019 Patient was evaluated by vascular surgery and patient will undergo amputation of the right foot. Not have any wound cultures available and patient is presently on broad-spectrum antibiotics vancomycin and cefepime. Constitutional: Denied any fatigue denied any fever. Cardio vascular: denied any chest pain, palpitations Gastrointestinal denied any nausea vomiting Pulmonary: Denied any shortness of breath cough Neurologic denied any new focal deficits All inpatient medications were reviewed and appropriate changes in these medications as dictated in the interval history and assessment and plan. Objective - Vital Signs Vital signs: Vital Signs Temp 97.9 F 11/10/19 08:00 Pulse 78 11/10/19 08:00 Resp 18 11/10/19 08:00 BP 146/76 11/10/19 08:00 Pulse Ox 96 11/10/19 08:00 Intake & Output 11/09/19 11/10/19 11/10/19 18:59 06:59 18:59 Intake Total 440 850 Balance 440 850 Weight 108.862 kg Intake: Intake, IV Titration 550 Amount Cefepime 1 gm In Sodium 50 Chloride 0.9% 50 ml @ 12. 5 mls/hr IVPB Q12HR [facility] Rx#:[id number] Vancomycin 1,750 mg In 500 Sodium Chloride 0.9% 500 ml 500 ml @ 167 mls/hr IVPB Q16H [facility] Rx#: [id number] Oral 440 300 Other: Voiding Method Bedpan Bedpan # Voids 1 1 - Exam PHYSICAL EXAMINATION: GENERAL: The patient is alert and oriented x3, not in any acute distress. Well developed, well nourished. HEENT: Pupils are round and equally reacting to light. EOMI. No scleral icterus. No conjunctival pallor. Normocephalic, atraumatic. No pharyngeal erythema. No thyromegaly. CARDIOVASCULAR: S1 and S2 present. No murmurs, rubs, or gallops. PULMONARY: Chest is clear to auscultation, no wheezing or crackles. ABDOMEN: Soft, nontender, nondistended, normoactive bowel sounds. No palpable organomegaly. MUSCULOSKELETAL: No joint swelling or deformity. EXTREMITIES: No cyanosis, clubbing, or pedal edema. Right foot is swollen and deformed with a significant amount of drainage and skin breakdown on the plantar aspect. Foot and lower part of the leg on the right side is red NEUROLOGICAL: Gross neurological examination did not reveal any focal deficits. SKIN: As mentioned above - Labs CBC & Chem 7: 11/10/19 09:14 11/10/19 09:14 Labs: Abnormal Lab Results - Last 24 Hours (Table) 11/09/19 11/09/19 11/09/19 Range/Units 17:10 20:25 21:48 WBC (3.8-10.6) k/uL Hgb (11.4-16.0) gm/dL Sodium (137-145) mmol/L BUN (7-17) mg/dL Glucose (74-99) mg/dL POC Glucose (mg/dL) 132 H 216 H (75-99) mg/dL AST (14-36) U/L ALT (4-34) U/L Alkaline Phosphatase (38-126) U/L Albumin (3.5-5.0) g/dL Urine Appearance Turbid H (Clear) Urine Protein 2+ H (Negative) Urine Glucose (UA) 4+ H (Negative) Urine Ketones 1+ H (Negative) Urine Blood Moderate H (Negative) Ur Leukocyte Esterase Large H (Negative) Urine WBC 36 H (0-5) /hpf Urine WBC Clumps Rare H (None) /hpf Ur Squamous Epith Cells 30 H (0-4) /hpf Urine Bacteria Moderate H (None) /hpf Urine Mucus Rare H (None) /hpf Urine Yeast (Budding) Occasional H (None) /hpf 11/10/19 11/10/19 11/10/19 Range/Units 07:06 07:43 08:03 WBC (3.8-10.6) k/uL Hgb (11.4-16.0) gm/dL Sodium (137-145) mmol/L BUN (7-17) mg/dL Glucose (74-99) mg/dL POC Glucose (mg/dL) 67 L 68 L 72 L (75-99) mg/dL AST (14-36) U/L ALT (4-34) U/L Alkaline Phosphatase (38-126) U/L Albumin (3.5-5.0) g/dL Urine Appearance (Clear) Urine Protein (Negative) Urine Glucose (UA) (Negative) Urine Ketones (Negative) Urine Blood (Negative) Ur Leukocyte Esterase (Negative) Urine WBC (0-5) /hpf Urine WBC Clumps (None) /hpf Ur Squamous Epith Cells (0-4) /hpf Urine Bacteria (None) /hpf Urine Mucus (None) /hpf Urine Yeast (Budding) (None) /hpf 11/10/19 11/10/19 Range/Units 09:14 09:14 WBC 24.7 H (3.8-10.6) k/uL Hgb 11.1 L (11.4-16.0) gm/dL Sodium 136 L (137-145) mmol/L BUN 18 H (7-17) mg/dL Glucose 69 L (74-99) mg/dL POC Glucose (mg/dL) (75-99) mg/dL AST 72 H (14-36) U/L ALT 46 H (4-34) U/L Alkaline Phosphatase 157 H (38-126) U/L Albumin 2.8 L (3.5-5.0) g/dL Urine Appearance (Clear) Urine Protein (Negative) Urine Glucose (UA) (Negative) Urine Ketones (Negative) Urine Blood (Negative) Ur Leukocyte Esterase (Negative) Urine WBC (0-5) /hpf Urine WBC Clumps (None) /hpf Ur Squamous Epith Cells (0-4) /hpf Urine Bacteria (None) /hpf Urine Mucus (None) /hpf Urine Yeast (Budding) (None) /hpf Microbiology - Last 24 Hours (Table) 11/09/19 21:48 Urine Culture - Preliminary Urine,Voided 11/08/19 16:18 Blood Culture - Preliminary Blood No Growth after 24 hours Assessment and Plan Plan: -Diabetic foot infection: Patient is on broad-spectrum antibiotics vancomycin and cefepime wound cultures are not available patient will undergo amputation of the right foot was evaluated by vascular surgery patient has severe sepsis secondary to wound infection and cellulitis of the right foot -Obesity BMI 38.7 -Diabetes mellitus type 2 chronically on insulin uncontrolled and hypoglycemic cutting down the pre-meal insulin as well as long-acting insulin -Coronary artery disease per history of stent -Hyper lipidemia -Essential hypertension -Peripheral arterial disease -Primary osteoarthritis -AICD -Severe diabetic peripheral neuropathy
--- NOTE | 2019-11-10 14:08 | P.CRDCN ---
History of Present Illness History of present illness: HISTORY OF PRESENTING ILLNESS This is a pleasant 74-year-old female past medical history significant for coronary artery disease status post PCI of the RCA 2006, ischemic cardiomyo yuko status post AICD implantation, chronic systolic heart failure, diabetes mellitus, hypertension, dyslipidemia, history of DVT in 2012 and peripheral vascular disease. She follows in the office with Dr. Harvey. We have been asked to see in consultation for cardiac evaluation prior to surgery. She is scheduled to undergo right foot amputation with Dr. Sarkar. She is seen and examined sitting up in no acute distress with family at the bedside. She denies symptoms of chest pain, shortness of breath, dizziness or palpitations. She underwent a stress test in the office January 2019 that was negative for reversible cardiac ischemia. Most recent echocardiogram obtained in the office 11/2018 revealed EF of 30%. DIAGNOSTICS EKG reveals sinus mechanism with first degree AV block, T-wave inversion inferiorly and non-specific lateral changes. Chest xray negative for an acute cardiopulmonary process. Laboratory reviewed, WBC 30.4 on admission down to 24.7 today, hemoglobin 11.1, platelets 423, sodium 136, potassium 3.5, creatinine 0.93, magnesium 1.9. Current cardiac medications include aspirin 81 mg daily, carvedilol 25 mg twice a day, Lasix 40 mg daily and lisinopril 2.5 mg daily. REVIEW OF SYSTEMS At the time of my exam: CONSTITUTIONAL: Denies fever or chills. CARDIOVASCULAR: Denies chest pain, shortness of breath, orthopnea, PND or palpitations. RESPIRATORY: Denies cough. GASTROINTESTINAL: Denies abdominal pain, diarrhea, constipation, nausea or vomiting. MUSCULOSKELETAL: Denies myalgias. NEUROLOGIC: Denies numbness, tingling or weakness. ENDOCRINE: Denies fatigue, weight change, polydipsia or polyurina. GENITOURINARY: Denies burning, hematuria or urgency with micturation. HEMATOLOGIC: Denies history of anemia or bleeding. PHYSICAL EXAMINATION Blood pressure 146/76 heart rate 78 afebrile and maintaining oxygen saturation on room air. CONSTITUTIONAL: No apparent distress. HEENT: Head is normocephalic. Pupils are equal, round. Sclerae anicteric. Mucous membranes of the mouth are moist. No JVD. No carotid bruit. CHEST EXAMINATION: Lungs are clear to auscultation. No chest wall tenderness is noted on palpation or with deep breathing. HEART EXAMINATION: Regular rate and rhythm. S1, S2 heard. No murmurs, gallops or rub. ABDOMEN: Soft, nontender. Positive bowel sounds. EXTREMITIES: 2+ peripheral pulses, no lower extremity edema and no calf tenderness. NEUROLOGIC EXAMINATION: Patient is awake, alert and oriented x3. ASSESSMENT Diabetic foot Coronary artery disease status post PCI of the RCA in 2006 Ischemic cardiomyopathy status post AICD implantation Chronic systolic heart failure, clinically euvolemic Diabetes mellitus Hypertension Dyslipidemia PLAN Repeat 2-D echocardiogram and Doppler study to assess cardiac structure and function. Clinically stable from a cardiac perspective with no symptoms of angina or heart failure. Clinically the patient is euvolemic. There is no contraindications to undergo surgical intervention however she is high risk given her multiple comorbid conditions. Recommend cautious fluid administration and optimal blood pressure control intraoperatively. Thank you kindly for this consultation. Nurse Practitioner note has been reviewed, I agree with a documented findings and plan of care. Patient was seen and examined. Past Medical History Past Medical History: Diabetes Mellitus, Deep Vein Thrombosis (DVT), Hearing Disorder / Deafness, Hyperlipidemia, Myocardial Infarction ([place]), Skin Disorder, Vascular Disorder Additional Past Medical History / Comment(s): PERIPHERAL VASCULAR DISEASE, DVT RT LEG 2013, hernia, hx pancreatitis, bulging disk, arthritis, dry skin, hard of hearing Last Myocardial Infarction Date:: 2006 History of Any Multi-Drug Resistant Organisms: None Reported Past Surgical History: AICD, Cholecystectomy, Heart Catheterization With Stent, Orthopedic Surgery Additional Past Surgical History / Comment(s): amputation small toe rt foot. Past Anesthesia/Blood Transfusion Reactions: No Reported Reaction Date of Last Stent Placement:: 2006 Type of Cardiac Device: AICD Device Placement Date:: 2006 [facility] Past Psychological History: No Psychological Hx Reported Smoking Status: Never smoker Past Alcohol Use History: None Reported Additional Past Alcohol Use History / Comment(s): quit smoking 2006 Past Drug Use History: None Reported - Past Family History Father Family Medical History: Cancer Medications and Allergies Home Medications Medication Instructions Recorded Confirmed Type Aspirin 81 mg PO DAILY 07/14/13 11/08/19 History Carvedilol 25 mg PO BID 07/14/13 11/08/19 History Furosemide [Lasix] 40 mg PO DAILY 07/14/13 11/08/19 History lisinopriL [Zestril] 2.5 mg PO DAILY 07/14/13 11/08/19 History Insulin Lispro [humaLOG Kwikpen] 7 unit SQ W/BRKFST 03/18/15 11/08/19 History Insulin Lispro [humaLOG Kwikpen] 19 unit SQ W/LUNCH 03/18/15 11/08/19 History Insulin Lispro [humaLOG Kwikpen] 26 unit SQ W/SUPPER 03/18/15 11/08/19 History Insulin Glargine,Hum.rec.anlog 30 unit SQ DAILY 11/08/19 11/08/19 History [Lantus Solostar] Insulin Glargine,Hum.rec.anlog 60 unit SQ HS 11/08/19 11/08/19 History [Lantus Solostar] Allergies Allergy/AdvReac Type Severity Reaction Status Date / Time clindamycin Allergy Rash/Hives Verified 11/08/19 21:19 Iodinated Contrast Media Allergy Rash/Hives Verified 11/08/19 21:19 [Iodinated Contrast Media - IV Dye] Penicillins Allergy Rapid Verified 11/08/19 21:19 Heart Rate & SOB CRANBERRIES Allergy Rash/Hives Uncoded 11/08/19 21:19 Physical Exam Vitals: Vital Signs Temp Pulse Pulse Resp BP Pulse Ox 11/10/19 08:00 97.9 F 78 18 146/76 96 11/10/19 07:00 97.7 F 72 18 151/67 99 11/10/19 00:53 99.0 F 70 16 135/67 97 11/09/19 18:42 98.3 F 91 18 111/58 98 11/09/19 14:44 97.6 F 79 16 134/62 99 Intake and Output 11/09/19 11/10/19 11/10/19 22:59 06:59 14:59 Intake Total 850 Balance 850 Intake: Intake, IV Titration 550 Amount Cefepime 1 gm In Sodium 50 Chloride 0.9% 50 ml @ 12. 5 mls/hr IVPB Q12HR [facility] Rx#:[id number] Vancomycin 1,750 mg In 500 Sodium Chloride 0.9% 500 ml 500 ml @ 167 mls/hr IVPB Q16H [facility] Rx#: [id number] Oral 300 Other: Voiding Method Bedpan # Voids 1 1 Results 11/10/19 09:14 11/10/19 09:14 Cardiac Enzymes 11/10/19 Range/Units 09:14 AST 72 H (14-36) U/L CBC 11/10/19 Range/Units 09:14 WBC 24.7 H (3.8-10.6) k/uL RBC 4.13 (3.80-5.40) m/uL Hgb 11.1 L (11.4-16.0) gm/dL Hct 35.6 (34.0-46.0) % Plt Count 423 (150-450) k/uL Comprehensive Metabolic Panel 11/10/19 Range/Units 09:14 Sodium 136 L (137-145) mmol/L Potassium 3.5 (3.5-5.1) mmol/L Chloride 104 (98-107) mmol/L Carbon Dioxide 23 (22-30) mmol/L BUN 18 H (7-17) mg/dL Creatinine 0.93 (0.52-1.04) mg/dL Glucose 69 L (74-99) mg/dL Calcium 9.0 (8.4-10.2) mg/dL AST 72 H (14-36) U/L ALT 46 H (4-34) U/L Alkaline Phosphatase 157 H (38-126) U/L Total Protein 6.4 (6.3-8.2) g/dL Albumin 2.8 L (3.5-5.0) g/dL Current Medications Generic Name Dose Route Start Last Admin Trade Name Freq PRN Reason Stop Dose Admin Acetaminophen 650 mg 11/08/19 17:49 11/09/19 19:28 Tylenol Tab PO 650 mg Q6HR PRN Administration Mild Pain or Fever > 100.5 Al Hydroxide/Mg Hydroxide 15 ml 11/08/19 21:03 Maalox PO Q6HR PRN Indigestion Aspirin 81 mg 11/09/19 09:00 11/10/19 06:46 Aspirin PO Not Given DAILY [facility] Atorvastatin Calcium 20 mg 11/09/19 09:00 11/10/19 08:28 Lipitor PO 20 mg DAILY [facility] Administration Calcium Carbonate/Glycine 1,000 mg 11/08/19 21:03 Tums PO Q4HR PRN Dyspepsia Vancomycin HCl 1,750 mg/ 500 mls @ 167 mls/hr 11/09/19 06:00 11/10/19 00:01 Sodium Chloride IVPB 167 mls/hr Q16H [facility] Administration Cefepime HCl 1 gm/ Sodium 50 mls @ 12.5 mls/hr 11/08/19 21:15 11/10/19 08:46 Chloride IVPB 12.5 mls/hr Q12HR [facility] Administration Insulin Aspart 0 unit 11/08/19 21:00 11/10/19 11:11 Novolog SQ Not Given ACHS [facility] Protocol Insulin Aspart 6 unit 11/08/19 21:59 Novolog SQ ACHS PRN Blood Sugar - High Insulin Detemir 50 unit 11/10/19 21:00 Levemir SQ HS [facility] Lactulose 20 gm 11/08/19 21:03 Cephulac PO DAILY PRN Constipation Lisinopril 2.5 mg 11/08/19 21:00 11/10/19 08:29 Zestril PO 2.5 mg DAILY [facility] Administration Magnesium Hydroxide 2,400 mg 11/08/19 21:03 Milk Of Magnesia PO DAILY PRN Constipation Melatonin 3 mg 11/08/19 21:03 11/09/19 21:04 Melatonin PO 3 mg HS PRN Administration Insomnia Miscellaneous Information 1 each 11/11/19 05:00 Vancomycin Trough Due MISCELLANE 11/11/19 05:01 ONCE ONE Naloxone HCl 0.2 mg 11/08/19 17:49 Narcan IV Q2M PRN Opioid Reversal Ondansetron HCl 4 mg 11/08/19 21:03 11/10/19 02:02 Zofran IVP 4 mg Q8HR PRN Administration Nausea And Vomiting Pantoprazole Sodium 40 mg 11/08/19 21:15 11/10/19 08:28 Protonix PO 40 mg AC-BID [facility] Administration Intake and Output 11/09/19 11/10/19 11/10/19 22:59 06:59 14:59 Intake Total 850 Balance 850 Intake: Intake, IV Titration 550 Amount Cefepime 1 gm In Sodium 50 Chloride 0.9% 50 ml @ 12. 5 mls/hr IVPB Q12HR [facility] Rx#:[id number] Vancomycin 1,750 mg In 500 Sodium Chloride 0.9% 500 ml 500 ml @ 167 mls/hr IVPB Q16H [facility] Rx#: [id number] Oral 300 Other: Voiding Method Bedpan # Voids 1 1 11/10/19 09:14 11/10/19 09:14
--- NOTE | 2019-11-10 16:01 | PN ---
PROGRESS NOTE DATE OF SERVICE: 11/10/2019 REASON FOR FOLLOWUP: Right diabetic foot infection. INTERVAL HISTORY: The patient is currently afebrile. The patient is breathing comfortably. The patient denies having any chest pain or shortness of breath or cough. No nausea. No vomiting. No abdominal pain or pain to the right foot area. PHYSICAL EXAMINATION: Blood pressure 146/76, pulse of 78, temperature 97.9. She is 96% on room air. General description is an elderly female lying in bed in no distress. RESPIRATORY SYSTEM: Unlabored breathing. Clear to auscultation anteriorly. HEART: S1, S2. Regular rate and rhythm. ABDOMEN: Soft. No tenderness. Right foot is currently dressed up. No obvious drainage on the dressing. LABS: Hemoglobin is 11.1, white count 24.7, BUN of 18, creatinine 0.93. Blood culture has been negative. DIAGNOSTIC IMPRESSION AND PLAN: Patient with right diabetic foot infection, extensive, with evidence of for disarticulation of the right foot this afternoon per Vascular Surgery followed by right [id number] amputation. The patient is covered with vancomycin and cefepime; to continue. Deep cultures during the surgery and antibiotic will be adjusted further. Daughter at the bedside. Questions were answered. MMODL / IJN: [id number] /
[2019-11-10 17:30] LABS: Glucose,Whole Blood 103 mg/dL (75-99)
[2019-11-10] MEDS ORDERED: LACTATED RINGERS 1,000 ML IV ONE (17:45)
--- NOTE | 2019-11-10 18:00 | ECHOF ---
Referral Reason:pre-op MEASUREMENTS -------- HEIGHT: 167.6 cm WEIGHT: 108.9 kg BP: 146/76 RVIDd: 3.4 cm (< 3.3) IVSd: 1.6 cm (0.6 - 1.1) LVIDd: 5.6 cm (3.9 - 5.3) LVPWd: 1.4 cm (0.6 - 1.1) IVSs: 2.0 cm LVIDs: 5.1 cm LVPWs: 1.9 cm LA Diam: 4.1 cm (2.7 - 3.8) LAESV Index (A-L): 21.89 ml/m Ao Diam: 3.5 cm (2.0 - 3.7) AV Cusp: 2.2 cm (1.5 - 2.6) MV EXCURSION: 13.275 mm (> 18.000) MV EF SLOPE: 54 mm/s (70 - 150) EPSS: 1.1 cm MV E Jerzy: 0.84 m/s MV DecT: 190 ms MV A Jerzy: 1.08 m/s MV E/A Ratio: 0.77 RAP: 5.00 mmHg RVSP: 29.15 mmHg FINDINGS -------- AICD This was a technically adequate study. The left ventricle is mildly dilated. There is moderate concentric left ventricular hypertrophy. Overall left ventricular systolic function is moderate-severely impaired with, an EF between 30 - 35 %. Basal inferior LV wall motion is aneurysmal Basal inferoseptal LV wall motion is hypokinetic. The right ventricle is mildly enlarged. Normal LA size by volume 22+/-6 ml/m2. The right atrium is normal in size. Interatrial and interventricular septum intact. There is mild aortic valve sclerosis. Trace to mild aortic regurgitation. The mitral valve leaflets are mildly thickened. Mild mitral annular calcification present. Mild m itral regurgitation is present. The peak and mean MV gradients are 9.34mmHg 3.47mmHg as measured b y doppler. Mild tricuspid regurgitation present. Right ventricular systolic pressure is normal at < 35 mmHg. Trace/mild (physiologic) pulmonic regurgitation. The aortic root size is normal. Normal inferior vena cava with normal inspiratory collapse consistent with estimated right atrial pre ssure of 5 mmHg. The inferior vena cava is mildly dilated. There is no pericardial effusion. CONCLUSIONS -------- 1. The left ventricle is mildly dilated. 2. There is moderate concentric left ventricular hypertrophy. 3. Overall left ventricular systolic function is moderate-severely impaired with, an EF between 30 - 35 %. 4. Basal inferior LV wall motion is aneurysmal 5. Basal inferoseptal LV wall motion is hypokinetic. 6. The right ventricle is mildly enlarged. 7. Normal LA size by volume 22+/-6 ml/m2. 8. There is mild aortic valve sclerosis. 9. Trace to mild aortic regurgitation. 10. The mitral valve leaflets are mildly thickened. 11. Mild mitral annular calcification present. 12. Mild mitral regurgitation is present. 13. The peak and mean MV gradients are 9.34mmHg 3.47mmHg as measured by doppler. 14. Mild tricuspid regurgitation present. 15. Trace/mild (physiologic) pulmonic regurgitation. 16. The inferior vena cava is mildly dilated. 17. There is no pericardial effusion. CASINO SUPERVISOR: Sheryl Emmanuel RDCS
--- NOTE | 2019-11-10 18:04 | P.GSCN ---
History of Present Illness Consult date: 11/10/19 History of present illness: Patient is a 74-year-old female with diabetes and somewhat of a Charcot foot of her right foot. She's previous undergone right toe amputations for diabetic wound infections. She presented to the hospital with general malaise and was found to have a significant infection in her right foot. Also with a white count of 30. She denies any nausea vomiting or diarrhea Past Medical History Past Medical History: Diabetes Mellitus, Deep Vein Thrombosis (DVT), Hearing Disorder / Deafness, Hyperlipidemia, Myocardial Infarction (LA), Skin Disorder, Vascular Disorder Additional Past Medical History / Comment(s): PERIPHERAL VASCULAR DISEASE, DVT RT LEG 2013, hernia, hx pancreatitis, bulging disk, arthritis, dry skin, hard of hearing Last Myocardial Infarction Date:: 2006 History of Any Multi-Drug Resistant Organisms: None Reported Past Surgical History: AICD, Cholecystectomy, Heart Catheterization With Stent, Orthopedic Surgery Additional Past Surgical History / Comment(s): amputation small toe rt foot. Past Anesthesia/Blood Transfusion Reactions: No Reported Reaction Date of Last Stent Placement:: 2006 Type of Cardiac Device: AICD Device Placement Date:: 2006 [facility] Past Psychological History: No Psychological Hx Reported Smoking Status: Never smoker Past Alcohol Use History: None Reported Additional Past Alcohol Use History / Comment(s): quit smoking 2006 Past Drug Use History: None Reported - Past Family History Father Family Medical History: Cancer Medications and Allergies Home Medications Medication Instructions Recorded Confirmed Type Aspirin 81 mg PO DAILY 07/14/13 11/08/19 History Carvedilol 25 mg PO BID 07/14/13 11/08/19 History Furosemide [Lasix] 40 mg PO DAILY 07/14/13 11/08/19 History lisinopriL [Zestril] 2.5 mg PO DAILY 07/14/13 11/08/19 History Insulin Lispro [humaLOG Kwikpen] 7 unit SQ W/BRKFST 03/18/15 11/08/19 History Insulin Lispro [humaLOG Kwikpen] 19 unit SQ W/LUNCH 03/18/15 11/08/19 History Insulin Lispro [humaLOG Kwikpen] 26 unit SQ W/SUPPER 03/18/15 11/08/19 History Insulin Glargine,Hum.rec.anlog 30 unit SQ DAILY 11/08/19 11/08/19 History [Lantus Solostar] Insulin Glargine,Hum.rec.anlog 60 unit SQ HS 11/08/19 11/08/19 History [Lantus Solostar] Allergies Allergy/AdvReac Type Severity Reaction Status Date / Time clindamycin Allergy Rash/Hives Verified 11/08/19 21:19 Iodinated Contrast Media Allergy Rash/Hives Verified 11/08/19 21:19 [Iodinated Contrast Media - IV Dye] Penicillins Allergy Rapid Verified 11/08/19 21:19 Heart Rate & SOB CRANBERRIES Allergy Rash/Hives Uncoded 11/08/19 21:19 Surgical - Exam Vital Signs Temp Pulse Resp BP Pulse Ox 98.6 F 60 18 91/56 96 11/08/19 15:33 11/08/19 15:33 11/08/19 15:33 11/08/19 15:33 11/08/19 15:33 Gen. a pleasant cooperative obese female in no acute distress. HEENT is normal site, atraumatic, excellent motion intact. Heart is regular in rate and rhythm. Lungs are clear bilaterally. Abdomen is soft obese nontender. Extremities show no cyanosis or edema. Her right foot had a Charcot joint area there is significant ulcerations and purulent drainage through multiple areas. Normal mood and affect Results - Labs 11/10/19 09:14 11/10/19 09:14 Abnormal Lab Results - Last 24 Hours (Table) 11/09/19 11/09/19 11/10/19 Range/Units 20:25 21:48 07:06 WBC (3.8-10.6) k/uL Hgb (11.4-16.0) gm/dL Sodium (137-145) mmol/L BUN (7-17) mg/dL Glucose (74-99) mg/dL POC Glucose (mg/dL) 216 H 67 L (75-99) mg/dL AST (14-36) U/L ALT (4-34) U/L Alkaline Phosphatase (38-126) U/L Albumin (3.5-5.0) g/dL Urine Appearance Turbid H (Clear) Urine Protein 2+ H (Negative) Urine Glucose (UA) 4+ H (Negative) Urine Ketones 1+ H (Negative) Urine Blood Moderate H (Negative) Ur Leukocyte Esterase Large H (Negative) Urine WBC 36 H (0-5) /hpf Urine WBC Clumps Rare H (None) /hpf Ur Squamous Epith Cells 30 H (0-4) /hpf Urine Bacteria Moderate H (None) /hpf Urine Mucus Rare H (None) /hpf Urine Yeast (Budding) Occasional H (None) /hpf 11/10/19 11/10/19 11/10/19 Range/Units 07:43 08:03 09:14 WBC (3.8-10.6) k/uL Hgb (11.4-16.0) gm/dL Sodium 136 L (137-145) mmol/L BUN 18 H (7-17) mg/dL Glucose 69 L (74-99) mg/dL POC Glucose (mg/dL) 68 L 72 L (75-99) mg/dL AST 72 H (14-36) U/L ALT 46 H (4-34) U/L Alkaline Phosphatase 157 H (38-126) U/L Albumin 2.8 L (3.5-5.0) g/dL Urine Appearance (Clear) Urine Protein (Negative) Urine Glucose (UA) (Negative) Urine Ketones (Negative) Urine Blood (Negative) Ur Leukocyte Esterase (Negative) Urine WBC (0-5) /hpf Urine WBC Clumps (None) /hpf Ur Squamous Epith Cells (0-4) /hpf Urine Bacteria (None) /hpf Urine Mucus (None) /hpf Urine Yeast (Budding) (None) /hpf 11/10/19 11/10/19 Range/Units 09:14 17:29 WBC 24.7 H (3.8-10.6) k/uL Hgb 11.1 L (11.4-16.0) gm/dL Sodium (137-145) mmol/L BUN (7-17) mg/dL Glucose (74-99) mg/dL POC Glucose (mg/dL) 103 H (75-99) mg/dL AST (14-36) U/L ALT (4-34) U/L Alkaline Phosphatase (38-126) U/L Albumin (3.5-5.0) g/dL Urine Appearance (Clear) Urine Protein (Negative) Urine Glucose (UA) (Negative) Urine Ketones (Negative) Urine Blood (Negative) Ur Leukocyte Esterase (Negative) Urine WBC (0-5) /hpf Urine WBC Clumps (None) /hpf Ur Squamous Epith Cells (0-4) /hpf Urine Bacteria (None) /hpf Urine Mucus (None) /hpf Urine Yeast (Budding) (None) /hpf Microbiology - Last 24 Hours (Table) 11/09/19 21:48 Urine Culture - Preliminary Urine,Voided 11/08/19 16:18 Blood Culture - Preliminary Blood No Growth after 24 hours Diabetes panel 11/10/19 Range/Units 09:14 Sodium 136 L (137-145) mmol/L Potassium 3.5 (3.5-5.1) mmol/L Chloride 104 (98-107) mmol/L Carbon Dioxide 23 (22-30) mmol/L BUN 18 H (7-17) mg/dL Creatinine 0.93 (0.52-1.04) mg/dL Glucose 69 L (74-99) mg/dL Calcium 9.0 (8.4-10.2) mg/dL AST 72 H (14-36) U/L ALT 46 H (4-34) U/L Alkaline Phosphatase 157 H (38-126) U/L Total Protein 6.4 (6.3-8.2) g/dL Albumin 2.8 L (3.5-5.0) g/dL Calcium panel 11/10/19 Range/Units 09:14 Calcium 9.0 (8.4-10.2) mg/dL Albumin 2.8 L (3.5-5.0) g/dL Pituitary panel 11/10/19 Range/Units 09:14 Sodium 136 L (137-145) mmol/L Potassium 3.5 (3.5-5.1) mmol/L Chloride 104 (98-107) mmol/L Carbon Dioxide 23 (22-30) mmol/L BUN 18 H (7-17) mg/dL Creatinine 0.93 (0.52-1.04) mg/dL Glucose 69 L (74-99) mg/dL Calcium 9.0 (8.4-10.2) mg/dL Adrenal panel 11/10/19 Range/Units 09:14 Sodium 136 L (137-145) mmol/L Potassium 3.5 (3.5-5.1) mmol/L Chloride 104 (98-107) mmol/L Carbon Dioxide 23 (22-30) mmol/L BUN 18 H (7-17) mg/dL Creatinine 0.93 (0.52-1.04) mg/dL Glucose 69 L (74-99) mg/dL Calcium 9.0 (8.4-10.2) mg/dL Total Bilirubin 0.5 (0.2-1.3) mg/dL AST 72 H (14-36) U/L ALT 46 H (4-34) U/L Alkaline Phosphatase 157 H (38-126) U/L Total Protein 6.4 (6.3-8.2) g/dL Albumin 2.8 L (3.5-5.0) g/dL Assessment and Plan Assessment: #1 extreme right diabetic foot infection Leukocytosis secondary to above Diabetes Previous cardiac catheterization with stent placement Plan: Given the look of the patient's foot and her labs, I do believe she would be best suited from a guillotine imitation of this right foot. Further optimization and antibiotics prior to completion of below-knee amputation. Risks and benefits were discussed with the patient and her family at the bedside. She seemingly understands and is willing to proceed
--- NOTE | 2019-11-10 19:15 | P.OP ---
Date of Procedure: 11/10/19 Description of Procedure: PREOPERATIVE DIAGNOSIS: Severe diabetic infection right foot. POSTOPERATIVE DIAGNOSIS: [Same]. OPERATION: Right foot guillotine amputation SURGEON: Mami Sarkar DO IMCU SPECIALIST: [None]. ANESTHESIA: [General LMA] ESTIMATED BLOOD LOSS: [100 mL] SPECIMENS REMOVED: []Right foot COMPLICATIONS: [None immediately apparent] CONDITION: Stable to recovery FINDINGS AND INDICATIONS: [Patient is a 74-year-old female with diabetes and previous diabetic infections requiring amputation of her toes. She presented to the hospital withWeakness, poor appetite, erythema and swelling along with significant drainage of her right foot. This isn't going on for many weeks. She was found to have a 30,000 white count and a fever at the time of presentation. Due to the significant and severe infection spanning the entirety of the mid and forefoot, it was discussed that she would best benefit from a guillotine type amputation of that foot with subsequent closure and the following days after appropriate stabilization and improvement of overall clinical picture. Risks and benefits were discussed with the patient and her family. They seemingly understood and were willing to proceed as such.] PROCEDURE IN DETAIL: The patient was brought to the operating room, the operative leg was prepped and draped in the usual sterile manner. A preprocedure timeout was performed. All parties in agreement. After anesthesia via general LMA was induced, a circumferential incision was made at the level of the ankle. A Gigli saw was utilized and the soft tissues and bone were transected. Bleeding vessels were clamped and tied. The area was copiously irrigated. There is no extension of any purulent drainage. Final hemostasis was achieved electric cautery. The area was once more irrigated. An Adaptic and wet-to-dry dressing were placed with Kerlix and Coban. The patient was ext ubated and transferred to PACU in stable condition having tolerated the procedure well
[2019-11-10 19:40] LABS: Glucose,Whole Blood 93 mg/dL (75-99)
[2019-11-10] MEDS: ACETAMINOPHEN TAB 325 MG TAB PO PRN (22:51)
[2019-11-11 00:09] LABS: Glucose,Whole Blood 178 mg/dL (75-99)
[2019-11-11] MEDS: CEFEPIME 1 GM in SODIUM CHLORIDE 0.9% 50 ML IVPB SCH ×3 (00:13→09:51)
[2019-11-11] MEDS: INSULIN DETEMIR (LEVEMIR) 100 UNIT/ML SYR SQ SCH ×2 (00:19→20:16)
[2019-11-11] MEDS ORDERED: VANCOMYCIN TROUGH DUE 1 EACH MISC MISCELLANE ONE (05:00)
[2019-11-11] MEDS: INSULIN ASPART (NovoLOG) 100 UNIT/ML VIAL SQ SCH ×5 (06:16→21:29)
[2019-11-11] MEDS: VANCOMYCIN 1,750 MG in SODIUM CHLORIDE 0.9% 500 ML 500 ML IVPB SCH (07:10)
[2019-11-11 07:11] LABS: Glucose,Whole Blood 133 mg/dL (75-99)
[2019-11-11] MEDS: PANTOPRAZOLE 40 MG TABLET PO SCH ×2 (07:51→17:55)
[2019-11-11] MEDS: ATORVASTATIN 20 MG TAB PO SCH (09:53)
[2019-11-11] MEDS: ASPIRIN 81 MG PO SCH (09:53)
[2019-11-11] MEDS: carvediloL 12.5 MG TAB PO SCH ×2 (11:17→17:56)
[2019-11-11 11:49] LABS: Glucose,Whole Blood 188 mg/dL (75-99)
--- NOTE | 2019-11-11 12:33 | P.PN ---
Subjective 74-year-old patient of Dr. Rodriguez. Chronic stable medical conditions include hyperlipidemia, diabetic peripheral neuropathy, peripheral arterial disease, deviated the right leg 2012, herniated disc, primary osteoarthritis coronary artery disease with stent. Patient lives at home with her son. Pretty much using a wheelchair. However 3 weeks ago she noticed a callus at the bottom of the foot. It opened up. She and she was using her own treatment including putting alcohol swabs in it. It progressed to get worse started draining more. One of patient's daughter called in today and decided bring the patient to the ER. Right foot is draining swollen edema is. Patient has neuropathy has does not have any pain in the foot. Has lost appetite for last 3 weeks. Denies any obvious fever and chills. Daughter the bedside. Patient lives with her son Bowen. Who works at the [employer] store. Today-laying in bed. Physically better. Was able to tolerate a liquid diet. Less nausea. Accu-Cheks are better. Her daughter the bedside. On IV antibiotics. 11/10/2019 Patient was evaluated by vascular surgery and patient will undergo amputation of the right foot. Not have any wound cultures available and patient is presently on broad-spectrum antibiotics vancomycin and cefepime. 11/11/2019 Patient is status post above ankle amputation on the right side. Patient remains on the same antibiotics won't cultures not available at this time. Constitutional: Denied any fatigue denied any fever. Cardio vascular: denied any chest pain, palpitations Gastrointestinal denied any nausea vomiting Pulmonary: Denied any shortness of breath cough Neurologic denied any new focal deficits All inpatient medications were reviewed and appropriate changes in these medications as dictated in the interval history and assessment and plan. Objective - Vital Signs Vital signs: Vital Signs Temp 97.7 F 11/11/19 06:53 Pulse 98 11/11/19 06:53 Resp 16 11/11/19 06:53 BP 130/65 11/11/19 06:53 Pulse Ox 96 11/11/19 01:28 Intake & Output 11/10/19 11/11/19 11/11/19 18:59 06:59 18:59 Intake Total 300 200 Output Total 425 Balance 300 -225 Intake: IV 300 200 Output: Urine 400 Estimated Blood Loss 25 Other: Voiding Method Bedpan # Voids 1 2 - Exam PHYSICAL EXAMINATION: GENERAL: The patient is alert and oriented x3, not in any acute distress. Well developed, well nourished. HEENT: Pupils are round and equally reacting to light. EOMI. No scleral icterus. No conjunctival pallor. Normocephalic, atraumatic. No pharyngeal erythema. No thyromegaly. CARDIOVASCULAR: S1 and S2 present. No murmurs, rubs, or gallops. PULMONARY: Chest is clear to auscultation, no wheezing or crackles. ABDOMEN: Soft, nontender, nondistended, normoactive bowel sounds. No palpable organomegaly. MUSCULOSKELETAL: No joint swelling or deformity. EXTREMITIES: No cyanosis, clubbing, or pedal edema. Patient has an above ankle amputation on the right side NEUROLOGICAL: Gross neurological examination did not reveal any focal deficits. SKIN: As mentioned above - Labs CBC & Chem 7: 11/10/19 09:14 11/11/19 05:18 Labs: Abnormal Lab Results - Last 24 Hours (Table) 11/10/19 11/11/19 11/11/19 Range/Units 17:29 00:01 05:18 Creatinine 1.05 H (0.52-1.04) mg/dL POC Glucose (mg/dL) 103 H 178 H (75-99) mg/dL 11/11/19 11/11/19 Range/Units 07:10 11:48 Creatinine (0.52-1.04) mg/dL POC Glucose (mg/dL) 133 H 188 H (75-99) mg/dL Microbiology - Last 24 Hours (Table) 11/08/19 16:18 Blood Culture - Preliminary Blood No Growth after 48 hours 11/09/19 21:48 Urine Culture - Preliminary Urine,Voided Assessment and Plan Plan: -Diabetic foot infection: Patient is on broad-spectrum antibiotics vancomycin and cefepime wound cultures are not available patient is status post above ankle amputation today -Obesity BMI 38.7 -Diabetes mellitus type 2 chronically on insulin fairly well controlled on present regimen continue with present regimen -Coronary artery disease per history of stent -Hyper lipidemia -Essential hypertension -Peripheral arterial disease -Primary osteoarthritis -AICD -Severe diabetic peripheral neuropathy
--- NOTE | 2019-11-11 13:09 | P.PN ---
Subjective HISTORY OF PRESENTING ILLNESS This is a pleasant 74-year-old female past medical history significant for coronary artery disease status post PCI of the RCA 2006, ischemic cardiomyopathy status post AICD implantation, chronic systolic heart failure, diabetes mellitus, hypertension, dyslipidemia, history of DVT in 2012 and peripheral vascular disease. She follows in the office with Dr. Harvey. She underwent right foot amputation yesterday with Dr. Sarkar. She is seen and examined sitting up in bed in no acute distress. She denies chest pain, shortness of breath, dizziness or palpitations. Blood pressure 116/56 heart rate 71 afebrile and maintaining oxygen saturation on room air. Laboratory data reviewed, creatinine 1.05. Currently maintained on aspirin 81 mg daily, atorvastatin 20 mg daily, lisinopril 2.5 mg daily and IV antibiotics. PHYSICAL EXAMINATION CONSTITUTIONAL: No apparent distress. HEENT: Head is normocephalic. Pupils are equal, round. Sclerae anicteric. Mucous membranes of the mouth are moist. No JVD. No carotid bruit. CHEST EXAMINATION: Lungs are clear to auscultation. No chest wall tenderness is noted on palpation or with deep breathing. HEART EXAMINATION: Regular rate and rhythm. S1, S2 heard. No murmurs, gallops or rub. EXTREMITIES: Right foot amputation with dressing in place over stump, no periphe ral edema noted. ASSESSMENT Diabetic foot ulcer Coronary artery disease status post PCI of the RCA in 2006 Ischemic cardiomyopathy status post AICD implantation Chronic systolic heart failure, clinically euvolemic Diabetes mellitus Hypertension Dyslipidemia PLAN Resume coreg and lasix at home doses. She is scheduled to undergo further amputation later this week with Dr. Sarkar. Cautious fluid administration recommended. Nurse Practitioner note has been reviewed, I agree with a documented findings and plan of care. Patient was seen and examined. Objective - Vital Signs Vital signs: Vital Signs Temp 96.8 F L 11/11/19 12:38 Pulse 71 11/11/19 12:38 Resp 18 11/11/19 12:38 BP 116/56 11/11/19 12:38 Pulse Ox 98 11/11/19 12:38 Intake & Output 11/10/19 11/11/19 11/11/19 18:59 06:59 18:59 Intake Total 300 200 Output Total 425 Balance 300 -225 Intake: IV 300 200 Output: Urine 400 Estimated Blood Loss 25 Other: Voiding Method Bedpan # Voids 1 2 - Labs CBC & Chem 7: 11/10/19 09:14 11/11/19 05:18 Labs: Abnormal Lab Results - Last 24 Hours (Table) 11/10/19 11/11/19 11/11/19 Range/Units 17:29 00:01 05:18 Creatinine 1.05 H (0.52-1.04) mg/dL POC Glucose (mg/dL) 103 H 178 H (75-99) mg/dL 11/11/19 11/11/19 Range/Units 07:10 11:48 Creatinine (0.52-1.04) mg/dL POC Glucose (mg/dL) 133 H 188 H (75-99) mg/dL Microbiology - Last 24 Hours (Table) 11/08/19 16:18 Blood Culture - Preliminary Blood No Growth after 48 hours 11/09/19 21:48 Urine Culture - Preliminary Urine,Voided
--- NOTE | 2019-11-11 13:09 | P.PN ---
Subjective Progress Note Date: 11/11/19 Principal diagnosis: severe diabetic infection of the right foot Patient seen and examined at the bedside. She is postop day #1 for a right foot amputation. She denies any acute changes through the night. She reports her pain is well controlled. Feels like her right lower extremity feels cold, states last night it felt like it was hot. She states she has shortness of nohemi th that is her normal, denies chest pain, fevers, or chills. Objective - Vital Signs Vital signs: Vital Signs Temp 96.8 F L 11/11/19 12:38 Pulse 71 11/11/19 12:38 Resp 18 11/11/19 12:38 BP 116/56 11/11/19 12:38 Pulse Ox 98 11/11/19 12:38 Intake & Output 11/10/19 11/11/19 11/11/19 18:59 06:59 18:59 Intake Total 300 200 Output Total 425 Balance 300 -225 Intake: IV 300 200 Output: Urine 400 Estimated Blood Loss 25 Other: Voiding Method Bedpan # Voids 1 2 - Exam General appearance: The patient is alert, oriented, in no acute distress. HET: Head is normocephalic and atraumatic. Pupils are equal and reactive. Or opharynx is clear without lesions. Neck: Supple without lymphadenopathy. Trachea midline. Heart: S1 S2. Regular rate and rhythm. Lungs: No crackles or wheezes are heard. Abdomen: Soft, nontender, nondistended with bowel sounds. No peritoneal signs. No palpable organomegaly or masses. Extremities: Right lower extremity with dressing that is clean dry and intact. Warm to the touch. Good capillary refill. Neurological: No focal deficits. Strength and sensation are grossly intact. - Labs CBC & Chem 7: 11/10/19 09:14 11/11/19 05:18 Labs: Abnormal Lab Results - Last 24 Hours (Table) 11/10/19 11/11/19 11/11/19 Range/Units 17:29 00:01 05:18 Creatinine 1.05 H (0.52-1.04) mg/dL POC Glucose (mg/dL) 103 H 178 H (75-99) mg/dL 11/11/19 11/11/19 Range/Units 07:10 11:48 Creatinine (0.52-1.04) mg/dL POC Glucose (mg/dL) 133 H 188 H (75-99) mg/dL Microbiology - Last 24 Hours (Table) 11/08/19 16:18 Blood Culture - Preliminary Blood No Growth after 48 hours 11/09/19 21:48 Urine Culture - Preliminary Urine,Voided Assessment and Plan Assessment: #1 Extreme right diabetic foot infection #2 Leukocytosis secondary to above #3 Diabetes #4 Previous cardiac catheterization with stent placement Plan: Continue with IV antibiotics per infectious disease recommendations. Repeat CBC with differential ordered. Patient will likely be scheduled for a below the knee amputation either tomorrow or Saturday. Patient is agreeable with plan. Further recommendations to follow. The above dictated assessment and findings were discussed with Dr. Sarkar. The impression and plan of care have been directed as dictated.
[2019-11-11 13:20] LABS: HCT 34.5 % (34.0-46.0); HGB 10.6 gm/dL (11.4-16.0); Hypochromasia Moderate; MCH 26.8 pg (25.0-35.0); MCHC 30.6 g/dL (31.0-37.0); MCV 87.8 fL (80.0-100.0); Mean Platelet Volume 9.4; Platelet Count 405 k/uL (150-450); RBC 3.94 m/uL (3.80-5.40); RDW 14.9 % (11.5-15.5); WBC 13.5 k/uL (3.8-10.6)
[2019-11-11 14:48] LABS: Band Neutrophils % 1 %; Eosinophils # (M) 0.14 k/uL (0-0.7); Lymphocytes # (M) 1.35 k/uL (1.0-4.8); Metamyelocytes # (M) 0.14 k/uL (0); Metamyelocytes % 1 %; Monocytes # (M) 1.08 k/uL (0-1.0); Myelocytes # (M) 0.14 k/uL (0); Myelocytes % 1 %; Neutrophils % (M) 80 %; Nucleated Red Blood Cells 0 /100 WBC (0-0); Total Cells Counted 200
[2019-11-11 14:49] LABS: Anisocytosis (M) Present; Poikilocytosis (M) Present
--- NOTE | 2019-11-11 16:08 | PN ---
PROGRESS NOTE DATE OF SERVICE: 11/11/2019 REASON FOR FOLLOWUP: Right diabetic foot infection. INTERVAL HISTORY: Patient is currently afebrile. The patient is breathing comfortably. Patient denies having any chest pain, no shortness of breath, no cough, no nausea, no abdominal pain or pain to the right ankle disarticulation site. PHYSICAL EXAMINATION: Blood pressure 116/56, pulse of 71, temperature 96.8. She is 98% on room air. General description is an elderly female lying in bed in no distress. RESPIRATORY SYSTEM: Unlabored breathing, clear to auscultation anteriorly. HEART: S1, S2. Regular rate and rhythm. Right ankle disarticulation site currently dressed, no drainage on the dressing. LABS: Hemoglobin is 12.1, white count of 13.5. Blood culture negative. DIAGNOSTIC IMPRESSION AND PLAN: Patient extensive right diabetic foot infection in this patient, status post disarticulation of the right ankle. Patient is currently covered with vancomycin, therapy to continue, and monitor clinical course closely. MMODL / IJN: [id number] /
[2019-11-11 16:45] LABS: Glucose,Whole Blood 210 mg/dL (75-99)
[2019-11-11] MEDS: FUROSEMIDE 40 MG TAB PO SCH (17:59)
[2019-11-11] MEDS: VANCOMYCIN 1,500 MG in SODIUM CHLORIDE 0.9% 250 ML IVPB SCH (20:22)
[2019-11-11 20:48] LABS: Glucose,Whole Blood 237 mg/dL (75-99)
[2019-11-11] MEDS ORDERED: INSULIN DETEMIR (LEVEMIR) 100 UNIT/ML SYR SQ SCH (21:00)
[2019-11-11] MEDS: CEFEPIME 1 GM VIAL IM SCH (21:27)
[2019-11-12 02:06] LABS: Glucose,Whole Blood 220 mg/dL (75-99)
[2019-11-12 06:53] LABS: Glucose,Whole Blood 274 mg/dL (75-99)
[2019-11-12] MEDS: PANTOPRAZOLE 40 MG TABLET PO SCH ×2 (07:48→16:53)
[2019-11-12] MEDS: carvediloL 12.5 MG TAB PO SCH ×2 (07:49→16:52)
[2019-11-12] MEDS: INSULIN ASPART (NovoLOG) 100 UNIT/ML VIAL SQ SCH ×4 (07:55→21:55)
[2019-11-12 09:34] LABS: HCT 32.3 % (34.0-46.0); HGB 10.1 gm/dL (11.4-16.0); Hypochromasia Slight; MCH 26.9 pg (25.0-35.0); MCHC 31.3 g/dL (31.0-37.0); Mean Platelet Volume 8.2; Platelet Count 385 k/uL (150-450); RBC 3.75 m/uL (3.80-5.40); RDW 15.1 % (11.5-15.5); WBC 10.4 k/uL (3.8-10.6)
[2019-11-12] MEDS: FUROSEMIDE 40 MG TAB PO SCH (09:37)
[2019-11-12] MEDS: ATORVASTATIN 20 MG TAB PO SCH (09:38)
[2019-11-12] MEDS: ASPIRIN 81 MG PO SCH (09:39)
[2019-11-12] MEDS: CEFEPIME 1 GM VIAL IM SCH (09:41)
[2019-11-12 09:43] LABS: Calcium 8.1 mg/dL (8.4-10.2); Potassium 3.6 mmol/L (3.5-5.1)
[2019-11-12 11:48] LABS: Glucose,Whole Blood 284 mg/dL (75-99)
--- NOTE | 2019-11-12 11:50 | P.PN ---
Subjective HISTORY OF PRESENTING ILLNESS This is a pleasant 74-year-old female past medical history significant for coronary artery disease status post PCI of the RCA 2006, ischemic cardiomyopathy status post AICD implantation, chronic systolic heart failure, diabetes mellitus, hypertension, dyslipidemia, history of DVT in 2012 and peripheral vascular disease. She follows in the office with Dr. Harvey. She underwent right foot amputation and is scheduled for further amputation today with Dr. Sarkar. She is seen and examined sitting up on the edge of the bed in no acute distress. She denies symptoms of chest pain, shortness of breath, dizzin ess or palpitations. Blood pressure 135/72 heart rate 76 afebrile maintaining oxygen saturation on room air. Laboratory data reviewed, WBC 10.4, hemoglobin 10.1, platelets 385, sodium 136, potassium 3.6, creatinine 1.17. Currently maintained on aspirin 81 mg daily, atorvastatin 20 mg daily, carvedilol 25 mg twice a day, Lasix 40 mg daily and lisinopril 2.5 mg daily. PHYSICAL EXAMINATION CONSTITUTIONAL: No apparent distress. HEENT: Head is normocephalic. Pupils are equal, round. Sclerae anicteric. Mucous membranes of the mouth are moist. No JVD. No carotid bruit. CHEST EXAMINATION: Lungs are clear to auscultation. No chest wall tenderness is noted on palpation or with deep breathing. HEART EXAMINATION: Regular rate and rhythm. S1, S2 heard. No murmurs, gallops or rub. EXTREMITIES: Right foot amputation with dressing in place over stump, no peripheral edema noted. ASSESSMENT Diabetic foot ulcer Coronary artery disease status post PCI of the RCA in 2006 Ischemic cardiomyopathy status post AICD implantation Chronic systolic heart failure, clinically euvolemic Diabetes mellitus Hypertension Dyslipidemia PLAN Stable on current regimen. Continue medications as previously ordered. Nurse Practitioner note has been reviewed, I agree with a documented findings and plan of care. Patient was seen and examined. Objective - Vital Signs Vital signs: Vital Signs Temp 98.3 F 11/12/19 07:25 Pulse 76 11/12/19 08:00 Resp 18 11/12/19 08:00 BP 135/72 11/12/19 07:25 Pulse Ox 97 11/12/19 07:25 Intake & Output 11/11/19 11/12/19 11/12/19 18:59 06:59 18:59 Other: Voiding Method Bedpan Bedpan Bedpan # Voids 4 3 # Bowel Movements 1 1 - Labs CBC & Chem 7: 11/12/19 08:27 11/12/19 08:27 Labs: Abnormal Lab Results - Last 24 Hours (Table) 11/11/19 11/11/19 11/11/19 Range/Units 05:18 11:48 16:43 WBC 13.5 H (3.8-10.6) k/uL RBC (3.80-5.40) m/uL Hgb 10.6 L (11.4-16.0) gm/dL Hct (34.0-46.0) % MCHC 30.6 L (31.0-37.0) g/dL Neutrophils # (Manual) 10.90 H (1.3-7.7) k/uL Monocytes # (Manual) 1.08 H (0-1.0) k/uL Metamyelocytes # (Man) 0.14 H (0) k/uL Myelocytes # (Manual) 0.14 H (0) k/uL Sodium (137-145) mmol/L Creatinine (0.52-1.04) mg/dL Glucose (74-99) mg/dL POC Glucose (mg/dL) 188 H 210 H (75-99) mg/dL Calcium (8.4-10.2) mg/dL 11/11/19 11/12/19 11/12/19 Range/Units 20:46 02:05 06:50 WBC (3.8-10.6) k/uL RBC (3.80-5.40) m/uL Hgb (11.4-16.0) gm/dL Hct (34.0-46.0) % MCHC (31.0-37.0) g/dL Neutrophils # (Manual) (1.3-7.7) k/uL Monocytes # (Manual) (0-1.0) k/uL Metamyelocytes # (Man) (0) k/uL Myelocytes # (Manual) (0) k/uL Sodium (137-145) mmol/L Creatinine (0.52-1.04) mg/dL Glucose (74-99) mg/dL POC Glucose (mg/dL) 237 H 220 H 274 H (75-99) mg/dL Calcium (8.4-10.2) mg/dL 11/12/19 11/12/19 Range/Units 08:27 08:27 WBC (3.8-10.6) k/uL RBC 3.75 L (3.80-5.40) m/uL Hgb 10.1 L (11.4-16.0) gm/dL Hct 32.3 L (34.0-46.0) % MCHC (31.0-37.0) g/dL Neutrophils # (Manual) (1.3-7.7) k/uL Monocytes # (Manual) (0-1.0) k/uL Metamyelocytes # (Man) (0) k/uL Myelocytes # (Manual) (0) k/uL Sodium 136 L (137-145) mmol/L Creatinine 1.17 H (0.52-1.04) mg/dL Glucose 278 H (74-99) mg/dL POC Glucose (mg/dL) (75-99) mg/dL Calcium 8.1 L (8.4-10.2) mg/dL Microbiology - Last 24 Hours (Table) 11/08/19 16:18 Blood Culture - Preliminary Blood No Growth after 72 hours 11/09/19 21:48 Urine Culture - Final Urine,Voided
--- NOTE | 2019-11-12 12:40 | P.CONS ---
History of Present Illness - Chief Complaint Walking difficulty - History of Present Illness I had the opportunity to see patient for inpatient rehab consultation with regard to walking difficulty. She was admitted to [facility] November 07 with infected right foot. Foot x-ray done and consistent with swelling and negative for cellulitis. Chest x-ray demonstrates mild cardiomegaly as well as dish syndrome T-spine. Seen by Dr. Farris. Seen by cardiology for ischemic cardiac myopathy, AICD, chronic systolic CHF. I'll be Dr. Sarkar independent undergo right BKA. Please. PT reports minimal assistance for bed mobility and minimal assistance to stand. Unable take steps. OT reports supervision for upper dressing, maximal assistance for lower dressing, moderate assistance for bathing and functional mobility and minimal assistance for toileting. Previous functional history as elicited from patient: 74-year-old right-handed white female is lives in one floor home with son. Patient is retired. Son does the driving. Patient dependent with own cooking, laundry, standing shower and gait without device. PMD Dr. Rodriguez. Denies tobacco or alcohol. Family history father with brain tumor. Review of Systems Review of systems: ENT: Denies sneezes or discharge. Eyes: Denies discharge or photophobia. Cardiac: Denies chest pain or palpitation. Pulmonary: Denies cough or shortness of breath. Breast: Denies discharge or lumps. Gastrointestinal: Denies nausea, emesis, constipation, diarrhea. Genitourinary: Denies discharge or frequency. Musculoskeletal: right stump discomfort. Neurologic: Denies motor or sensory change. Endocrine: Denies shakes or sweats. Oncology: Denies cancers. Dermatologic: Denies rash, itching, pruritus. ALLERGY/immunology: Denies sneezes, rashes. Past Medical History Past Medical History: Diabetes Mellitus, Deep Vein Thrombosis (DVT), Hearing Disorder / Deafness, Hyperlipidemia, Myocardial Infarction (ND), Skin Disorder, Vascular Disorder Additional Past Medical History / Comment(s): PERIPHERAL VASCULAR DISEASE, DVT RT LEG 2012, hernia, hx pancreatitis, bulging disk, arthritis, dry skin, hard of hearing Last Myocardial Infarction Date:: 2006 History of Any Multi-Drug Resistant Organisms: None Reported Past Surgical History: AICD, Cholecystectomy, Heart Catheterization With Stent, Orthopedic Surgery Additional Past Surgical History / Comment(s): amputation small toe rt foot. Past Anesthesia/Blood Transfusion Reactions: No Reported Reaction Date of Last Stent Placement:: 2006 Type of Cardiac Device: AICD Device Placement Date:: 2006 [facility] Past Psychological History: No Psychological Hx Reported Smoking Status: Never smoker Past Alcohol Use History: None Reported Additional Past Alcohol Use History / Comment(s): quit smoking 2006 Past Drug Use History: None Reported - Past Family History Father Family Medical History: Cancer Medications and Allergies Home Medications Medication Instructions Recorded Confirmed Type Aspirin 81 mg PO DAILY 07/14/13 11/08/19 History Carvedilol 25 mg PO BID 07/14/13 11/08/19 History Furosemide [Lasix] 40 mg PO DAILY 07/14/13 11/08/19 History lisinopriL [Zestril] 2.5 mg PO DAILY 07/14/13 11/08/19 History Insulin Lispro [humaLOG Kwikpen] 7 unit SQ W/BRKFST 03/18/15 11/08/19 History Insulin Lispro [humaLOG Kwikpen] 19 unit SQ W/LUNCH 03/18/15 11/08/19 History Insulin Lispro [humaLOG Kwikpen] 26 unit SQ W/SUPPER 03/18/15 11/08/19 History Insulin Glargine,Hum.rec.anlog 30 unit SQ DAILY 11/08/19 11/08/19 History [Lantus Solostar] Insulin Glargine,Hum.rec.anlog 60 unit SQ HS 11/08/19 11/08/19 History [Lantus Solostar] Allergies Allergy/AdvReac Type Severity Reaction Status Date / Time clindamycin Allergy Rash/Hives Verified 11/08/19 21:19 Iodinated Contrast Media Allergy Rash/Hives Verified 11/08/19 21:19 [Iodinated Contrast Media - IV Dye] Penicillins Allergy Rapid Verified 11/08/19 21:19 Heart Rate & SOB CRANBERRIES Allergy Rash/Hives Uncoded 11/08/19 21:19 Physical Exam Vitals: Vital Signs Temp Pulse Resp BP BP BP Pulse Ox 11/12/19 12:22 97.5 F L 11/12/19 12:20 97.0 F L 68 17 117/60 99 11/12/19 08:00 76 18 11/12/19 07:25 98.3 F 76 18 135/72 97 11/12/19 01:06 97.7 F 67 18 135/63 96 11/11/19 23:50 18 11/11/19 18:56 98.6 F 77 16 119/67 99 11/11/19 16:00 70 18 11/11/19 15:00 97.9 F 70 18 157/88 99 11/11/19 12:38 96.8 F L 71 18 116/56 98 Intake and Output 11/11/19 11/12/19 11/12/19 22:59 06:59 14:59 Other: Voiding Method Bedpan Bedpan # Voids 1 3 # Bowel Movements 1 Skin: atrophic, intact. General: obese build and comfortable appearance. Head: Normocephalic, atraumatic. Eyes: Symmetric. Pupils equal round. Ears: Symmetric. Hearing within normal limits. Mouth: Clear. Neck: Supple. Carotid without bruit. Cardiac: Regular rate and rhythm. Lungs: Clear anteriorly and posteriorly. Abdomen: Soft active nontender. Extremities: Normal tone.right BK stump clean and dressed. Neurological: Mental status: Alert, cooperative, pleasant. Cranial nerves: Symmetric facial tone and trapezius. Motor: Normal strength and isolation both arms and left leg. Right leg with some giveaway weakness especially knee. Sensation: Intact throughout. DTRs: Symmetric and equal throughout. Mobility: requires physical assist for bed mobility and transfers. Results CBC & Chem 7: 11/12/19 08:27 11/12/19 08:27 Labs: Abnormal Lab Results - Last 24 Hours (Table) 11/11/19 11/11/19 11/11/19 Range/Units 05:18 16:43 20:46 WBC 13.5 H (3.8-10.6) k/uL RBC (3.80-5.40) m/uL Hgb 10.6 L (11.4-16.0) gm/dL Hct (34.0-46.0) % MCHC 30.6 L (31.0-37.0) g/dL Neutrophils # (Manual) 10.90 H (1.3-7.7) k/uL Monocytes # (Manual) 1.08 H (0-1.0) k/uL Metamyelocytes # (Man) 0.14 H (0) k/uL Myelocytes # (Manual) 0.14 H (0) k/uL Sodium (137-145) mmol/L Creatinine (0.52-1.04) mg/dL Glucose (74-99) mg/dL POC Glucose (mg/dL) 210 H 237 H (75-99) mg/dL Calcium (8.4-10.2) mg/dL 11/12/19 11/12/19 11/12/19 Range/Units 02:05 06:50 08:27 WBC (3.8-10.6) k/uL RBC (3.80-5.40) m/uL Hgb (11.4-16.0) gm/dL Hct (34.0-46.0) % MCHC (31.0-37.0) g/dL Neutrophils # (Manual) (1.3-7.7) k/uL Monocytes # (Manual) (0-1.0) k/uL Metamyelocytes # (Man) (0) k/uL Myelocytes # (Manual) (0) k/uL Sodium 136 L (137-145) mmol/L Creatinine 1.17 H (0.52-1.04) mg/dL Glucose 278 H (74-99) mg/dL POC Glucose (mg/dL) 220 H 274 H (75-99) mg/dL Calcium 8.1 L (8.4-10.2) mg/dL 11/12/19 11/12/19 Range/Units 08:27 11:44 WBC (3.8-10.6) k/uL RBC 3.75 L (3.80-5.40) m/uL Hgb 10.1 L (11.4-16.0) gm/dL Hct 32.3 L (34.0-46.0) % MCHC (31.0-37.0) g/dL Neutrophils # (Manual) (1.3-7.7) k/uL Monocytes # (Manual) (0-1.0) k/uL Metamyelocytes # (Man) (0) k/uL Myelocytes # (Manual) (0) k/uL Sodium (137-145) mmol/L Creatinine (0.52-1.04) mg/dL Glucose (74-99) mg/dL POC Glucose (mg/dL) 284 H (75-99) mg/dL Calcium (8.4-10.2) mg/dL Microbiology - Last 24 Hours (Table) 11/08/19 16:18 Blood Culture - Preliminary Blood No Growth after 72 hours 11/09/19 21:48 Urine Culture - Final Urine,Voided Assessment and Plan (1) Cellulitis of right foot Current Visit: Yes Status: Acute Code(s): L03.115 - CELLULITIS OF RIGHT L OWER LIMB SNOMED Code(s): 429210591 Plan: impression: 1. Walking. 2. Right BKA, new. 3. Right foot with diabetic ulcer and cellulitis. 4.dyslipidemia. 5. Deafness. 6. History ofDVT and ND Comments and plan: At this time PT and OT are ongoing. Safety concerns noted. History discussed possible inpatient rehab with patient seems agreeable if necessary which seems likely.
[2019-11-12] MEDS: LACTATED RINGERS 1,000 ML IV SCH ×2 (14:23→21:56)
[2019-11-12] MEDS: VANCOMYCIN 1,500 MG in SODIUM CHLORIDE 0.9% 250 ML IVPB SCH (14:23)
[2019-11-12] MEDS ORDERED: LACTATED RINGERS 1,000 ML IV ONE ×2 (15:03→19:01)
--- NOTE | 2019-11-12 15:12 | P.PN ---
Subjective Progress Note Date: 11/12/19 Principal diagnosis: 74-year-old patient of Dr. Rodriguez. Chronic stable medical conditions include hyperlipidemia, diabetic peripheral neuropathy, peripheral arterial disease, dev iated the right leg 2012, herniated disc, primary osteoarthritis coronary artery disease with stent. Patient lives at home with her son. Pretty much using a wheelchair. However 3 weeks ago she noticed a callus at the bottom of the foot. It opened up. She and she was using her own treatment including putting alcohol swabs in it. It progressed to get worse started draining more. One of patient's daughter called in today and decided bring the patient to the ER. Right foot is draining swollen edema is. Patient has neuropathy has does not have any pain in the foot. Has lost appetite for last 3 weeks. Denies any obvious fever and chills. Daughter the bedside. Patient lives with her son Bowen. Who works at the [employer]. Today-laying in bed. Physically better. Was able to tolerate a liquid diet. Less nausea. Accu-Cheks are better. Her daughter the bedside. On IV antibiotics. 11/10/2019 Patient was evaluated by vascular surgery and patient will undergo amputation of the right foot. Not have any wound cultures available and patient is presently on broad-spectrum antibiotics vancomycin and cefepime. 11/11/2019 Patient is status post above ankle amputation on the right side. Patient remains on the same antibiotics won't cultures not available at this time. Constitutional: Denied any fatigue denied any fever. Cardio vascular: denied any chest pain, palpitations Gastrointestinal denied any nausea vomiting Pulmonary: Denied any shortness of breath cough Neurologic denied any new focal deficits All inpatient medications were reviewed and appropriate changes in these medications as dictated in the interval history and assessment and plan. 11/12/2019 Patient is seen and evaluated in follow-up currently waiting to undergo [id number] amputation of the right lower extremity with vascular surgery today. Patient is maintained on IV antibiotics in the form of vancomycin and cefepime and will continue at this time. Infectious disease is following. Dr. Gracia also consulted for possible inpatient rehab once patient is stabilized and discharged. Blood sugars are being monitored patient is maintained on long- acting along with sliding scale and will continue at this time. Will repeat a.m. labs and monitor vital signs closely. Will await vascular surgery report. Objective - Vital Signs Vital signs: Vital Signs Temp 97.5 F L 11/12/19 12:22 Pulse 68 11/12/19 12:20 Resp 17 11/12/19 12:20 BP 117/60 11/12/19 12:20 Pulse Ox 99 11/12/19 12:20 Intake & Output 11/11/19 11/12/19 11/12/19 18:59 06:59 18:59 Other: Voiding Method Bedpan Bedpan Bedpan # Voids 4 3 # Bowel Movements 1 1 - Exam GENERAL: The patient is alert and oriented x3, not in any acute distress. Well developed, well nourished. HEENT: Pupils are round and equally reacting to light. EOMI. No scleral icterus. No conjunctival pallor. Normocephalic, atraumatic. No pharyngeal erythema. No thyromegaly. CARDIOVASCULAR: S1 and S2 present. No murmurs, rubs, or gallops. PULMONARY: Chest is clear to auscultation, no wheezing or crackles. ABDOMEN: Soft, nontender, nondistended, normoactive bowel sounds. No palpable organomegaly. MUSCULOSKELETAL: No joint swelling or deformity. EXTREMITIES: No cyanosis, clubbing, or pedal edema. Patient has an above ankle amputation on the right side that is currently Elbert wrapped and surgical dres sings are dry and intact NEUROLOGICAL: Gross neurological examination did not reveal any focal deficits. SKIN: As mentioned above - Labs CBC & Chem 7: 11/12/19 08:27 11/12/19 08:27 Labs: Abnormal Lab Results - Last 24 Hours (Table) 11/11/19 11/11/19 11/11/19 Range/Units 05:18 16:43 20:46 WBC 13.5 H (3.8-10.6) k/uL RBC (3.80-5.40) m/uL Hgb 10.6 L (11.4-16.0) gm/dL Hct (34.0-46.0) % MCHC 30.6 L (31.0-37.0) g/dL Neutrophils # (Manual) 10.90 H (1.3-7.7) k/uL Monocytes # (Manual) 1.08 H (0-1.0) k/uL Metamyelocytes # (Man) 0.14 H (0) k/uL Myelocytes # (Manual) 0.14 H (0) k/uL Sodium (137-145) mmol/L Creatinine (0.52-1.04) mg/dL Glucose (74-99) mg/dL POC Glucose (mg/dL) 210 H 237 H (75-99) mg/dL Calcium (8.4-10.2) mg/dL 11/12/19 11/12/19 11/12/19 Range/Units 02:05 06:50 08:27 WBC (3.8-10.6) k/uL RBC (3.80-5.40) m/uL Hgb (11.4-16.0) gm/dL Hct (34.0-46.0) % MCHC (31.0-37.0) g/dL Neutrophils # (Manual) (1.3-7.7) k/uL Monocytes # (Manual) (0-1.0) k/uL Metamyelocytes # (Man) (0) k/uL Myelocytes # (Manual) (0) k/uL Sodium 136 L (137-145) mmol/L Creatinine 1.17 H (0.52-1.04) mg/dL Glucose 278 H (74-99) mg/dL POC Glucose (mg/dL) 220 H 274 H (75-99) mg/dL Calcium 8.1 L (8.4-10.2) mg/dL 11/12/19 11/12/19 Range/Units 08:27 11:44 WBC (3.8-10.6) k/uL RBC 3.75 L (3.80-5.40) m/uL Hgb 10.1 L (11.4-16.0) gm/dL Hct 32.3 L (34.0-46.0) % MCHC (31.0-37.0) g/dL Neutrophils # (Manual) (1.3-7.7) k/uL Monocytes # (Manual) (0-1.0) k/uL Metamyelocytes # (Man) (0) k/uL Myelocytes # (Manual) (0) k/uL Sodium (137-145) mmol/L Creatinine (0.52-1.04) mg/dL Glucose (74-99) mg/dL POC Glucose (mg/dL) 284 H (75-99) mg/dL Calcium (8.4-10.2) mg/dL Microbiology - Last 24 Hours (Table) 11/08/19 16:18 Blood Culture - Preliminary Blood No Growth after 72 hours 11/09/19 21:48 Urine Culture - Final Urine,Voided Assessment and Plan Assessment: -Diabetic foot infection: Patient is on broad-spectrum antibiotics vancomycin and cefepime, infectious disease is following. Patient is status post above the ankle amputation and will be undergoing below the knee amputation with vascular surgery today. -Obesity BMI 38.7 -Diabetes mellitus type 2 chronically on insulin fairly well controlled on present regimen continue with present regimen -Coronary artery disease per history of stent -Hyperlipidemia -Essential hypertension -Peripheral arterial disease -Primary osteoarthritis -AICD -Severe diabetic peripheral neuropathy -Full code Plan: Continue current medications, management, and symptomatic treatment. Continue with IV antibiotics at this time. Multiple medical consultations following. Patient scheduled to undergo below the knee amputation of the right lower extremity today with vascular surgery. Will await report. Will repeat a.m. labs and continue to monitor bloods rigors closely and titrate insulins as needed. Further recommendations to follow. Case management and social work following as patient will likely need inpatient rehab or ECF for continued PT/OT therapy.
[2019-11-12] MEDS: ONDANSETRON 4 MG/2 ML VIAL IVP PRN (15:22)
[2019-11-12 15:52] LABS: Glucose,Whole Blood 212 mg/dL (75-99)
--- NOTE | 2019-11-12 16:49 | PN ---
PROGRESS NOTE DATE OF SERVICE: 11/12/2019 REASON FOR FOLLOWUP: Right diabetic foot infection. INTERVAL HISTORY: The patient is currently afebrile, patient is breathing comfortably. The patient denies having any chest pain or shortness of breath. No cough, no nausea, no abdominal pain or pain to the right ankle disarticulation site. PHYSICAL EXAMINATION: Blood pressure 158/60 with a pulse of 66, temperature 97.7. She is 96% on room air. General description is an elderly female, lying in bed in no distress. RESPIRATORY SYSTEM: Unlabored breathing, clear to auscultation anteriorly. HEART: S1, S2. Regular rate and rhythm. ABDOMEN: Soft, no tenderness. Right ankle disarticulation site is dressed, no drainage on the dressing. LABS: Hemoglobin is 10.1, white count 10.4, BUN of 17, creatinine 1.17. Blood culture has been negative. DIAGNOSTIC IMPRESSION AND PLAN: Patient with right diabetic foot infection status post disarticulation at the ankle. Plan for the right [id number] amputation. Patient is covered with cefepime and vancomycin to continue. White count has normalized and continue with supportive care. MMODL / IJN: [id number] /
--- NOTE | 2019-11-12 18:20 | P.OP ---
Date of Procedure: 11/12/19 Preoperative Diagnosis: Nonhealing ulcer of the right foot, status post guillotine amputation right lower extremity. Postoperative Diagnosis: Same. Procedure(s) Performed: Right below the knee amputation. Anesthesia: CLARISSA Surgeon: Margarito Jacob Estimated Blood Loss (ml): 200 Pathology: none sent Condition: stable Disposition: floor Indications for Procedure: Patient is a 74-year-old female with a long-standing history of diabetes mellitus who had presented with a nonhealing ulceration of the right foot requiring guillotine amputation. She now presents for conversion of the guillotine to a [id number] amputation. Description of Procedure: Patient was brought the upper and placed in supine position Mr. general endotracheal anesthesia delivered by the department anesthesiology. Patient's right lower extremity sterilely prepped and draped in usual manner. 10 cm below the tibial tuberosity and incision was made transversely extending medially and laterally. This incision was then extended longitudinally both medially and and laterally and finally brought posteriorly. Incision was deepened through the subcu change tissues. Hemostasis was achieved using electrocautery. The muscles of the anterior compartment were divided by meghann ctrocautery. The appeared to be poorly perfused. More proximally the muscles appeared much healthier and color and reaction to cautery stimulation. Periosteum was elevated and utilizing the power saw the tibia was transected. Proximally 1 cm proximal to this level of transection the fibula was then transected. Amputation was completed with amputation knife. The vessels were identified and clamped and ligated with Vicryl suture. Soleus and some of the gastrocnemius muscle was removed. The posterior flap easily reach the anterior flap and in fact that needed to be trimmed back somewhat. The wound was irrigated with antibiotic containing solution. Tita drain was placed in the wound and brought out both medially and laterally. Fascia was closed with 3-0 Vicryl. Skin edges reapproximated skin charo. Adaptic, fluffs, Curlex and Elbert wrap and a knee immobilizer were then of applied. Patient tolerated the procedure well and was transferred to recovery area satisfactory and stable condition.
[2019-11-12 18:39] LABS: Glucose,Whole Blood 212 mg/dL (75-99)
[2019-11-12] MEDS ORDERED: INSULIN ASPART (NovoLOG) 100 UNIT/ML VIAL SQ ONE (18:39)
[2019-11-12] MEDS ORDERED: HYDROmorphone 0.5 MG/0.5 ML SYRINGE IVP ONE (18:40)
[2019-11-12] MEDS: HYDROcodone/APAP 5-325MG 1 EACH TAB PO PRN ×2 (19:31→23:44)
[2019-11-12 21:30] LABS: Glucose,Whole Blood 222 mg/dL (75-99)
[2019-11-12] MEDS: INSULIN DETEMIR (LEVEMIR) 100 UNIT/ML SYR SQ SCH (21:55)
[2019-11-12] MEDS: CEFEPIME 1 GM in SODIUM CHLORIDE 0.9% 50 ML IVPB SCH (21:56)
[2019-11-13] MEDS: HYDROcodone/APAP 5-325MG 1 EACH TAB PO PRN ×4 (03:51→19:52)
[2019-11-13] MEDS: LACTATED RINGERS 1,000 ML IV SCH ×2 (03:54→10:07)
[2019-11-13] MEDS: VANCOMYCIN 1,500 MG in SODIUM CHLORIDE 0.9% 250 ML IVPB SCH ×2 (05:19→22:00)
[2019-11-13 06:52] LABS: Glucose,Whole Blood 174 mg/dL (75-99)
[2019-11-13] MEDS ORDERED: INSULIN ASPART (NovoLOG) 100 UNIT/ML VIAL SQ SCH ×3 (07:30→17:30)
[2019-11-13] MEDS: FUROSEMIDE 40 MG TAB PO SCH (08:12)
[2019-11-13] MEDS: ATORVASTATIN 20 MG TAB PO SCH (08:12)
[2019-11-13] MEDS: PANTOPRAZOLE 40 MG TABLET PO SCH ×2 (08:12→17:01)
[2019-11-13] MEDS: ASPIRIN 81 MG PO SCH (08:13)
[2019-11-13] MEDS: carvediloL 12.5 MG TAB PO SCH ×2 (08:13→17:04)
[2019-11-13] MEDS: INSULIN ASPART (NovoLOG) 100 UNIT/ML VIAL SQ SCH ×4 (08:28→21:50)
[2019-11-13] MEDS: INSULIN DETEMIR (LEVEMIR) 100 UNIT/ML SYR SQ SCH (08:29)
[2019-11-13] MEDS: CEFEPIME 1 GM in SODIUM CHLORIDE 0.9% 50 ML IVPB SCH ×2 (08:47→21:50)
[2019-11-13 09:25] LABS: HGB 9.6 gm/dL (11.4-16.0); Hypochromasia Slight; MCH 27.2 pg (25.0-35.0); MCV 84.8 fL (80.0-100.0); Mean Platelet Volume 7.6; Platelet Count 411 k/uL (150-450); RBC 3.54 m/uL (3.80-5.40); RDW 14.6 % (11.5-15.5); WBC 16.4 k/uL (3.8-10.6)
--- NOTE | 2019-11-13 11:32 | P.PN ---
Subjective Progress Note Date: 11/13/19 Principal diagnosis: severe diabetic infection of the right foot Patient seen and examined at bedside. She has status postop day 1 for a right below the knee amputation. She states she has pain into the right lower extremity, she describes as phantom pain along with pain to the lower side of her leg. She just received pain medication. She denies any fever or chills. He is tolerating a regular diet. She denies any shortness of breath or chest pains. Objective - Vital Signs Vital signs: Vital Signs Temp 97.9 F 11/13/19 06:56 Pulse 71 11/13/19 06:56 Resp 19 11/13/19 06:56 BP 131/72 11/13/19 06:56 Pulse Ox 99 11/13/19 06:56 Intake & Output 11/12/19 11/13/19 11/13/19 18:59 06:59 18:59 Intake Total 600 600 Output Total 150 Balance 450 600 Weight 108.862 kg 108.862 kg Intake: IV 600 225 Intake, IV Titration 375 Amount Lactated Ringers 1,000 ml 375 @ 125 mls/hr IV .Q8H [facility] Rx#:[id number] Output: Estimated Blood Loss 150 Other: Voiding Method Bedpan Bedpan # Voids 2 3 1 - Exam General appearance: The patient is alert, oriented, in no acute distress. HET: Head is normocephalic and atraumatic. Pupils are equal and reactive. Oropharynx is clear without lesions. Neck: Supple without lymphadenopathy. Trachea midline. Heart: S1 S2. Regular rate and rhythm. Lungs: No crackles or wheezes are heard. Abdomen: Soft, nontender, nondistended with bowel sounds. No peritoneal signs. No palpable organomegaly or masses. Extremities: Right lower extremity with dressing that is saturated. Dressing changed, surgical site intact with charo, two grecia drains one at each lateral side of incision. Neurological: No focal deficits. Strength and sensation are grossly intact. - Labs CBC & Chem 7: 11/13/19 08:46 11/12/19 08:27 Labs: Abnormal Lab Results - Last 24 Hours (Table) 11/12/19 11/12/19 11/12/19 Range/Units 08:27 08:27 11:44 WBC (3.8-10.6) k/uL RBC 3.75 L (3.80-5.40) m/uL Hgb 10.1 L (11.4-16.0) gm/dL Hct 32.3 L (34.0-46.0) % Sodium 136 L (137-145) mmol/L Creatinine 1.17 H (0.52-1.04) mg/dL Glucose 278 H (74-99) mg/dL POC Glucose (mg/dL) 284 H (75-99) mg/dL Calcium 8.1 L (8.4-10.2) mg/dL 11/12/19 11/12/19 11/12/19 Range/Units 15:49 18:38 21:23 WBC (3.8-10.6) k/uL RBC (3.80-5.40) m/uL Hgb (11.4-16.0) gm/dL Hct (34.0-46.0) % Sodium (137-145) mmol/L Creatinine (0.52-1.04) mg/dL Glucose (74-99) mg/dL POC Glucose (mg/dL) 212 H 212 H 222 H (75-99) mg/dL Calcium (8.4-10.2) mg/dL 11/13/19 11/13/19 Range/Units 06:49 08:46 WBC 16.4 H (3.8-10.6) k/uL RBC 3.54 L (3.80-5.40) m/uL Hgb 9.6 L (11.4-16.0) gm/dL Hct 30.0 L (34.0-46.0) % Sodium (137-145) mmol/L Creatinine (0.52-1.04) mg/dL Glucose (74-99) mg/dL POC Glucose (mg/dL) 174 H (75-99) mg/dL Calcium (8.4-10.2) mg/dL Microbiology - Last 24 Hours (Table) 11/09/19 21:48 Urine Culture - Preliminary Urine,Voided Yeast species 11/08/19 16:18 Blood Culture - Preliminary Blood No Growth after 96 hours Assessment and Plan Assessment: #1 postop day #1 right below the knee amputation #2 Extreme right diabetic foot infection #3 Leukocytosis secondary to above #4 Diabetes #5 Previous cardiac catheterization with stent placement Plan: Continue with daily dressing changes. Continue with IV antibiotics per recommendations from infectious disease. Dr. 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 Jesus. The impression and plan of care have been directed as dictated.
[2019-11-13 11:44] LABS: Glucose,Whole Blood 208 mg/dL (75-99)
--- NOTE | 2019-11-13 13:44 | P.PN ---
Subjective HISTORY OF PRESENTING ILLNESS This is a pleasant 74-year-old female past medical history significant for coronary artery disease status post PCI of the RCA 2006, ischemic cardiomyopathy status post AICD implantation, chronic systolic heart failure, diabetes mellitus, hypertension, dyslipidemia, history of DVT in 2012 and peripheral vascular disease. She follows in the office with Dr. Harvey. She underwent right foot amputation Saturday of this week and then further amputation BK yesterday with vascular surgery. She is seen and examined sitting up in bed with family at the bedside. She is complaining of significant pain in the right lower extremity. She denies chest pain, shortness of breath, dizziness or palpitations. Blood pressure 114/71 heart rate 77 afebrile maintaining oxygen saturation on nasal cannula. Laboratory data reviewed, WBC 16.4, hemoglobin 9.6 and platelets 411. PHYSICAL EXAMINATION CONSTITUTIONAL: No apparent distress. HEENT: Head is normocephalic. Pupils are equal, round. Sclerae anicteric. Mucous membranes of the mouth are moist. No JVD. No carotid bruit. CHEST EXAMINATION: Lungs are clear to auscultation. No chest wall tenderness is noted on palpation or with deep breathing. HEART EXAMINATION: Regular rate and rhythm. S1, S2 heard. No murmurs, gallops or rub. EXTREMITIES: Right foot amputation with dressing in place over stump, no peripheral edema noted. ASSESSMENT Diabetic foot ulcer Coronary artery disease status post PCI of the RCA in 2006 Ischemic cardiomyopathy status post AICD implantation Chronic systolic heart failure, clinically euvolemic Diabetes mellitus Hypertension Dyslipidemia PLAN Stable on current regimen. Continue medications as previously ordered. We will follow along as needed, please call with further questions or concerns. Follow-up in the outpatient setting with Dr. Sauer. Nurse Practitioner note has been reviewed, I agree with a documented findings and plan of care. Patient was seen and examined. Objective - Vital Signs Vital signs: Vital Signs Temp 98.0 F 11/13/19 12:36 Pulse 77 11/13/19 12:36 Resp 16 11/13/19 12:36 BP 114/71 11/13/19 12:36 Pulse Ox 100 11/13/19 12:36 Intake & Output 11/12/19 11/13/19 11/13/19 18:59 06:59 18:59 Intake Total 600 600 Output Total 150 Balance 450 600 Weight 108.862 kg 108.862 kg Intake: IV 600 225 Intake, IV Titration 375 Amount Lactated Ringers 1,000 ml 375 @ 125 mls/hr IV .Q8H [facility] Rx#:[id number] Output: Estimated Blood Loss 150 Other: Voiding Method Bedpan Bedpan # Voids 2 3 1 - Labs CBC & Chem 7: 11/13/19 08:46 11/12/19 08:27 Labs: Abnormal Lab Results - Last 24 Hours (Table) 11/12/19 11/12/19 11/12/19 Range/Units 15:49 18:38 21:23 WBC (3.8-10.6) k/uL RBC (3.80-5.40) m/uL Hgb (11.4-16.0) gm/dL Hct (34.0-46.0) % POC Glucose (mg/dL) 212 H 212 H 222 H (75-99) mg/dL 11/13/19 11/13/19 11/13/19 Range/Units 06:49 08:46 11:42 WBC 16.4 H (3.8-10.6) k/uL RBC 3.54 L (3.80-5.40) m/uL Hgb 9.6 L (11.4-16.0) gm/dL Hct 30.0 L (34.0-46.0) % POC Glucose (mg/dL) 174 H 208 H (75-99) mg/dL Microbiology - Last 24 Hours (Table) 11/09/19 21:48 Urine Culture - Final Urine,Voided Elvi sp,not albicans/galbr 11/08/19 16:18 Blood Culture - Preliminary Blood No Growth after 96 hours
--- NOTE | 2019-11-13 16:36 | P.PN ---
Subjective Progress Note Date: 11/13/19 Principal diagnosis: 74-year-old patient of Dr. Rodriguez. Chronic stable medical conditions include hyperlipidemia, diabetic peripheral neuropathy, peripheral arterial disease, dev iated the right leg 2012, herniated disc, primary osteoarthritis coronary artery disease with stent. Patient lives at home with her son. Pretty much using a wheelchair. However 3 weeks ago she noticed a callus at the bottom of the foot. It opened up. She and she was using her own treatment including putting alcohol swabs in it. It progressed to get worse started draining more. One of patient's daughter called in today and decided bring the patient to the ER. Right foot is draining swollen edema is. Patient has neuropathy has does not have any pain in the foot. Has lost appetite for last 3 weeks. Denies any obvious fever and chills. Daughter the bedside. Patient lives with her son Bowen. Who works at the [employer]. Today-laying in bed. Physically better. Was able to tolerate a liquid diet. Less nausea. Accu-Cheks are better. Her daughter the bedside. On IV antibiotics. 11/10/2019 Patient was evaluated by vascular surgery and patient will undergo amputation of the right foot. Not have any wound cultures available and patient is presently on broad-spectrum antibiotics vancomycin and cefepime. 11/11/2019 Patient is status post above ankle amputation on the right side. Patient remains on the same antibiotics won't cultures not available at this time. Constitutional: Denied any fatigue denied any fever. Cardio vascular: denied any chest pain, palpitations Gastrointestinal denied any nausea vomiting Pulmonary: Denied any shortness of breath cough Neurologic denied any new focal deficits All inpatient medications were reviewed and appropriate changes in these medications as dictated in the interval history and assessment and plan. 11/12/2019 Patient is seen and evaluated in follow-up currently waiting to undergo emion-[id number]-[id number] amputation of the right lower extremity with vascular surgery today. Patient is maintained on IV antibiotics in the form of vancomycin and cefepime and will continue at this time. Infectious disease is following. Dr. Gracia also consulted for possible inpatient rehab once patient is stabilized and discharged. Blood sugars are being monitored patient is maintained on long- acting along with sliding scale and will continue at this time. Will repeat a.m. labs and monitor vital signs closely. Will await vascular surgery report. 11/13/2019 Patient is seen in follow-up status post wtsin-fmz-zigy amputation on the right lower extremity with vascular surgery, postop day #1. Patient currently maintained on IV antibiotic therapy in the form of vancomycin and cefepime and will continue at this time. Infectious disease is following. Patient was evaluated by [facility] inpatient rehab although states she would like to go to [facility] for continued PT/OT therapy. Case management and social work following working on discharge planning needs and placement. Blood sugars being closely monitored and patient is maintained on sliding scale along with long-acting insulin and will continue. Patient continues to work with PT/OT therapy daily. Patient is having some discomfort noted of the right surgical site although surgical site looks dry and intact with dressing just changed today. Knee immobilizer has been applied. Vascular surgery and infectious disease also following closely. Review of systems: Constitutional: No reports of fatigue, fever, or chills Cardiovascular: No reports of chest pain or palpitations Respiratory: No reports of shortness of breath or cough GI: No reports of nausea, vomiting, or diarrhea : No reports of dysuria or retention Neurovascular: No reports of weakness or numbness All medications have been reviewed Objective - Vital Signs Vital signs: Vital Signs Temp 98.0 F 11/13/19 12:36 Pulse 77 11/13/19 12:36 Resp 16 11/13/19 12:36 BP 114/71 11/13/19 12:36 Pulse Ox 100 11/13/19 12:36 Intake & Output 11/12/19 11/13/19 11/13/19 18:59 06:59 18:59 Intake Total 600 600 Output Total 150 Balance 450 600 Weight 108.862 kg 108.862 kg Intake: IV 600 225 Intake, IV Titration 375 Amount Lactated Ringers 1,000 ml 375 @ 125 mls/hr IV .Q8H [facility] Rx#:[id number] Output: Estimated Blood Loss 150 Other: Voiding Method Bedpan Bedpan # Voids 2 3 1 - Exam GENERAL: The patient is alert and oriented x3, not in any acute distress. Well developed, well nourished. HEENT: Pupils are round and equally reacting to light. EOMI. No scleral icterus. No conjunctival pallor. Normocephalic, atraumatic. No pharyngeal erythema. No thyromegaly. CARDIOVASCULAR: S1 and S2 present. No murmurs, rubs, or gallops. PULMONARY: Chest is clear to auscultation, no wheezing or crackles. ABDOMEN: Soft, nontender, nondistended, normoactive bowel sounds. No palpable organomegaly. MUSCULOSKELETAL: No joint swelling or deformity. EXTREMITIES: No cyanosis, clubbing, or pedal edema. Status post tgnmg-psz-bocp amputation on the right with surgical dressings that are dry and intact and Elbert wrap's applied over this along with knee immobilizer noted NEUROLOGICAL: Gross neurological examination did not reveal any focal deficits. SKIN: As mentioned above - Labs CBC & Chem 7: 11/13/19 08:46 11/12/19 08:27 Labs: Abnormal Lab Results - Last 24 Hours (Table) 11/12/19 11/12/19 11/12/19 Range/Units 15:49 18:38 21:23 WBC (3.8-10.6) k/uL RBC (3.80-5.40) m/uL Hgb (11.4-16.0) gm/dL Hct (34.0-46.0) % POC Glucose (mg/dL) 212 H 212 H 222 H (75-99) mg/dL 11/13/19 11/13/19 11/13/19 Range/Units 06:49 08:46 11:42 WBC 16.4 H (3.8-10.6) k/uL RBC 3.54 L (3.80-5.40) m/uL Hgb 9.6 L (11.4-16.0) gm/dL Hct 30.0 L (34.0-46.0) % POC Glucose (mg/dL) 174 H 208 H (75-99) mg/dL Microbiology - Last 24 Hours (Table) 11/09/19 21:48 Urine Culture - Final Urine,Voided Elvi sp,not albicans/galbr 11/08/19 16:18 Blood Culture - Preliminary Blood No Growth after 96 hours Assessment and Plan Assessment: -Diabetic foot infection: Patient is on broad-spectrum antibiotics vancomycin and cefepime, infectious disease is following. Patient is status post below-the -knee amputation yesterday after recent kxfsr-aam-nwatr amputation -Obesity BMI 38.7 -Diabetes mellitus type 2 chronically on insulin fairly well controlled on present regimen continue with present regimen -Coronary artery disease per history of stent -Hyperlipidemia -Essential hypertension -Peripheral arterial disease -Primary osteoarthritis -AICD -Severe diabetic peripheral neuropathy -Full code Plan: Continue current medications, management, and symptomatic treatment. Continue with IV antibiotics at this time. Multiple medical consultations following. Patient underwent below the knee amputation of the right lower extremity with vascular surgery. Will repeat a.m. labs and continue to monitor bloods sugars closely and titrate insulins as needed. Further recommendations to follow. Case management and social work following as patient will likely need inpatient rehab or ECF for continued PT/OT therapy. She states she would like to go to [facility] for continued PT/OT therapy.
[2019-11-13 16:47] LABS: Glucose,Whole Blood 56 mg/dL (75-99)
[2019-11-13 17:03] LABS: Glucose,Whole Blood 45 mg/dL (75-99)
[2019-11-13 17:21] LABS: Glucose,Whole Blood 47 mg/dL (75-99)
[2019-11-13 17:42] LABS: Glucose,Whole Blood 62 mg/dL (75-99)
[2019-11-13 17:54] LABS: Glucose,Whole Blood 78 mg/dL (75-99)
[2019-11-13 18:31] LABS: Glucose,Whole Blood 78 mg/dL (75-99)
--- NOTE | 2019-11-13 18:59 | PN ---
PROGRESS NOTE DATE OF SERVICE: 11/13/2019 REASON FOR FOLLOWUP: Right diabetic foot infection. INTERVAL HISTORY: The patient is currently afebrile. The patient is breathing comfortably. The patient denies having any chest pain or shortness of breath or cough. No abdominal pain. Some pain to the right BKA stump, controlled with pain medication. PHYSICAL EXAMINATION: Blood pressure is 108/57 with a pulse of 80, temperature is 97.9. She is 100% on room air. General description is an elderly female lying in bed in no distress. RESPIRATORY SYSTEM: Unlabored breathing. Clear to auscultation anteriorly. HEART: S1, S2. Regular rate and rhythm. ABDOMEN: Soft. No tenderness. Right BKA stump is currently dressed. No drainage on the dressing. LABS: White count is elevated at 16,000. DIAGNOSTIC IMPRESSION AND PLAN: 1. Patient with right diabetic foot infection, status post amputation, with infected part removed. The patient will need to be on long-term antibiotic therapy. Continue with vancomycin and cefepime empirically perioperatively. 2. Patient did have a positive culture with Elvi, not albicans. We will repeat her UA and culture. If still positive, add antifungal. Otherwise, monitor closely, as no significant urinary symptoms. MMODL / IJN: [id number] /
[2019-11-13 21:06] LABS: Glucose,Whole Blood 159 mg/dL (75-99)
[2019-11-14 02:38] LABS: Glucose,Whole Blood 222 mg/dL (75-99)
[2019-11-14] MEDS: HYDROcodone/APAP 5-325MG 1 EACH TAB PO PRN ×3 (02:46→15:47)
[2019-11-14] MEDS: INSULIN DETEMIR (LEVEMIR) 100 UNIT/ML SYR SQ SCH ×2 (02:47→07:55)
[2019-11-14 07:02] LABS: Glucose,Whole Blood 217 mg/dL (75-99)
[2019-11-14 07:27] LABS: Basophils # (A) 0.1 k/uL (0-0.2); Basophils % (A) 1 %; Eosinophils # (A) 0.3 k/uL (0-0.7); Eosinophils % (A) 2 %; HCT 26.5 % (34.0-46.0); HGB 8.2 gm/dL (11.4-16.0); Hypochromasia Slight; Lymphocytes # (A) 1.4 k/uL (1.0-4.8); Lymphocytes % (A) 10 %; MCH 26.4 pg (25.0-35.0); MCHC 31.1 g/dL (31.0-37.0); MCV 84.8 fL (80.0-100.0); Mean Platelet Volume 7.7; Monocytes % (A) 7 %; Neutrophils # (A) 11.4 k/uL (1.3-7.7); Neutrophils % (A) 80 %; Platelet Count 362 k/uL (150-450); RBC 3.12 m/uL (3.80-5.40); RDW 15.1 % (11.5-15.5); WBC 14.3 k/uL (3.8-10.6)
[2019-11-14 07:40] LABS: Calcium 7.8 mg/dL (8.4-10.2); Potassium 3.6 mmol/L (3.5-5.1)
[2019-11-14] MEDS: INSULIN ASPART (NovoLOG) 100 UNIT/ML VIAL SQ SCH ×6 (07:55→16:44)
[2019-11-14] MEDS: PANTOPRAZOLE 40 MG TABLET PO SCH ×2 (07:56→17:13)
[2019-11-14] MEDS: ATORVASTATIN 20 MG TAB PO SCH (07:57)
[2019-11-14] MEDS: FUROSEMIDE 40 MG TAB PO SCH (07:57)
[2019-11-14] MEDS: ASPIRIN 81 MG PO SCH (07:57)
[2019-11-14] MEDS: carvediloL 12.5 MG TAB PO SCH ×2 (07:57→17:13)
[2019-11-14] MEDS: CEFEPIME 1 GM in SODIUM CHLORIDE 0.9% 50 ML IVPB SCH ×2 (10:47→21:00)
[2019-11-14 12:04] LABS: Glucose,Whole Blood 138 mg/dL (75-99)
[2019-11-14] MEDS ORDERED: VANCOMYCIN TROUGH DUE 1 EACH MISC MISCELLANE ONE (13:00)
--- NOTE | 2019-11-14 13:12 | P.PN ---
Subjective 74-year-old patient of Dr. Rodriguez. Chronic stable medical conditions include hyperlipidemia, diabetic peripheral neuropathy, peripheral arterial disease, deviated the right leg 2012, herniated disc, primary osteoarthritis coronary artery disease with stent. Patient lives at home with her son. Pretty much using a wheelchair. However 3 weeks ago she noticed a callus at the bottom of the foot. It opened up. She and she was using her own treatment including putting alcohol swabs in it. It progressed to get worse started draining more. One of patient's daughter called in today and decided bring the patient to the ER. Right foot is draining swollen edema is. Patient has neuropathy has does not have any pain in the foot. Has lost appetite for last 3 weeks. Denies any obvious fever and chills. Daughter the bedside. Patient lives with her son Bowen. Who works at the [employer]. Today-laying in bed. Physically better. Was able to tolerate a liquid diet. Less nausea. Accu-Cheks are better. Her daughter the bedside. On IV antibiotics. 11/10/2019 Patient was evaluated by vascular surgery and patient will undergo amputation of the right foot. Not have any wound cultures available and patient is presently on broad-spectrum antibiotics vancomycin and cefepime. 11/11/2019 Patient is status post above ankle amputation on the right side. Patient remains on the same antibiotics won't cultures not available at this time. 11/12/2019 Patient is seen and evaluated in follow-up currently waiting to undergo peetz-tvq-vmqp amputation of the right lower extremity with vascular surgery today. Patient is maintained on IV antibiotics in the form of vancomycin and cefepime and will continue at this time. Infectious disease is following. Dr. Gracia also consulted for possible inpatient rehab once patient is stabilized and discharged. Blood sugars are being monitored patient is maintained on long- acting along with sliding scale and will continue at this time. Will repeat a.m. labs and monitor vital signs closely. Will await vascular surgery report. 11/13/2019 Patient is seen in follow-up status post bnjij-tbw-avoe amputation on the right lower extremity with vascular surgery, postop day #1. Patient currently maintained on IV antibiotic therapy in the form of vancomycin and cefepime and will continue at this time. Infectious disease is following. Patient was evaluated by [facility] inpatient rehab although states she would like to go to [facility] for continued PT/OT therapy. Case management and social work following working on discharge planning needs and placement. Blood sugars being closely monitored and patient is maintained on sliding scale along with long-acting insulin and will continue. Patient continues to work with PT/OT therapy daily. Patient is having some discomfort noted of the right surgical site although surgical site looks dry and intact with dressing just changed today. Knee immobilizer has been applied. Vascular surgery and infectious disease also following closely. 11/14/2019 Patient is overall doing well but patient renal function continued to get worse patient was hypotensive as well as hyponatremic because of these reasons I'll hold off on lisinopril patient does have a nonischemic cardio myopathy of around 30-35% but patient is hypovolemic at this time patient will be started on IV fluids hold off on Lasix at this time. We will closely monitor for any heart failure exacerbation Constitutional: Denied any fatigue denied any fever. Cardio vascular: denied any chest pain, palpitations Gastrointestinal denied any nausea vomiting Pulmonary: Denied any shortness of breath cough Neurologic denied any new focal deficits All inpatient medications were reviewed and appropriate changes in these medications as dictated in the interval history and assessment and plan. Objective - Vital Signs Vital signs: Vital Signs Temp 98.1 F 11/14/19 07:00 Pulse 71 11/14/19 07:00 Resp 18 11/14/19 07:00 BP 105/58 11/14/19 07:00 Pulse Ox 99 11/14/19 07:00 Intake & Output 11/13/19 11/14/19 11/14/19 18:59 06:59 18:59 Intake Total 300 Balance 300 Intake: Oral 300 Other: # Voids 1 2 # Bowel Movements 2 - Exam GENERAL: The patient is alert and oriented x3, not in any acute distress. Well developed, well nourished. HEENT: Pupils are round and equally reacting to light. EOMI. No scleral icterus. No conjunctival pallor. Normocephalic, atraumatic. No pharyngeal erythema. No thyromegaly. CARDIOVASCULAR: S1 and S2 present. No murmurs, rubs, or gallops. PULMONARY: Chest is clear to auscultation, no wheezing or crackles. ABDOMEN: Soft, nontender, nondistended, normoactive bowel sounds. No palpable organomegaly. MUSCULOSKELETAL: No joint swelling or deformity. EXTREMITIES: No cyanosis, clubbing, or pedal edema. Status post owxqs-zhd-hftq amputation on the right with surgical dressings that are dry and intact and Elbert wrap's applied over this along with knee immobilizer noted NEUROLOGICAL: Gross neurological examination did not reveal any focal deficits. SKIN: As mentioned above - Labs CBC & Chem 7: 11/14/19 07:03 11/14/19 07:03 Labs: Abnormal Lab Results - Last 24 Hours (Table) 11/13/19 11/13/19 11/13/19 Range/Units 16:45 17:01 17:19 WBC (3.8-10.6) k/uL RBC (3.80-5.40) m/uL Hgb (11.4-16.0) gm/dL Hct (34.0-46.0) % Neutrophils # (1.3-7.7) k/uL Sodium (137-145) mmol/L BUN (7-17) mg/dL Creatinine (0.52-1.04) mg/dL Glucose (74-99) mg/dL POC Glucose (mg/dL) 56 L 45 L 47 L (75-99) mg/dL Calcium (8.4-10.2) mg/dL 11/13/19 11/13/19 11/14/19 Range/Units 17:41 21:04 02:36 WBC (3.8-10.6) k/uL RBC (3.80-5.40) m/uL Hgb (11.4-16.0) gm/dL Hct (34.0-46.0) % Neutrophils # (1.3-7.7) k/uL Sodium (137-145) mmol/L BUN (7-17) mg/dL Creatinine (0.52-1.04) mg/dL Glucose (74-99) mg/dL POC Glucose (mg/dL) 62 L 159 H 222 H (75-99) mg/dL Calcium (8.4-10.2) mg/dL 11/14/19 11/14/19 11/14/19 Range/Units 07:01 07:03 07:03 WBC 14.3 H (3.8-10.6) k/uL RBC 3.12 L (3.80-5.40) m/uL Hgb 8.2 L (11.4-16.0) gm/dL Hct 26.5 L (34.0-46.0) % Neutrophils # 11.4 H (1.3-7.7) k/uL Sodium 134 L (137-145) mmol/L BUN 21 H (7-17) mg/dL Creatinine 1.41 H (0.52-1.04) mg/dL Glucose 200 H (74-99) mg/dL POC Glucose (mg/dL) 217 H (75-99) mg/dL Calcium 7.8 L (8.4-10.2) mg/dL 11/14/19 Range/Units 12:02 WBC (3.8-10.6) k/uL RBC (3.80-5.40) m/uL Hgb (11.4-16.0) gm/dL Hct (34.0-46.0) % Neutrophils # (1.3-7.7) k/uL Sodium (137-145) mmol/L BUN (7-17) mg/dL Creatinine (0.52-1.04) mg/dL Glucose (74-99) mg/dL POC Glucose (mg/dL) 138 H (75-99) mg/dL Calcium (8.4-10.2) mg/dL Microbiology - Last 24 Hours (Table) 11/08/19 16:18 Blood Culture - Preliminary Blood No Growth after 120 hours 11/09/19 21:48 Urine Culture - Final Urine,Voided Elvi sp,not albicans/galbr Assessment and Plan Plan: -Diabetic foot infection: Patient is on broad-spectrum antibiotics vancomycin and cefepime, infectious disease is following. Patient is status post b zuvy-mex-xmir amputation yesterday after recent vlguy-ucz-gvlht amputation. Wound cultures are negative -Acute renal failure secondary to diuretics so most probably these will be held and patient was started on IV fluids ELBERT inhibitor will be held as well -Hypotension secondary to heart failure medications and the antidepressants medications which will be held. -Hypovolemic hyponatremia expected to improve with IV fluids -Congestive heart heart failure chronic systolic dysfunction nonischemic c ardiomyopathy patient is hypovolemic but need to be closely monitored with IV fluids. Patient has an AICD -Obesity BMI 38.7 -Diabetes mellitus type 2 chronically on insulin fairly well controlled on present regimen continue with present regimen -Coronary artery disease per history of stent -Hyperlipidemia -Essential hypertension -Peripheral arterial disease -Primary osteoarthritis -Severe diabetic peripheral neuropathy -Full code
[2019-11-14] MEDS ORDERED: VANCOMYCIN IV PER PHARMACY 1 EACH MISC MISCELLANE PRN (13:57)
[2019-11-14 16:22] LABS: Glucose,Whole Blood 85 mg/dL (75-99)
[2019-11-14] MEDS: SODIUM CHLORIDE 0.9% 1,000 ML IV SCH (17:14)
[2019-11-14] MEDS: LACTATED RINGERS 1,000 ML IV SCH (17:27)
--- NOTE | 2019-11-14 18:01 | PN ---
PROGRESS NOTE DATE OF SERVICE: 11/14/2019 REASON FOR FOLLOWUP: 1. Right diabetic foot infection. 2. Positive urine culture. INTERVAL HISTORY: The patient is currently afebrile. She is breathing comfortably. Complaining of slight dizziness. No chest pain, shortness of breath or cough. No abdominal pain or pain to the right BKA stump, which is currently controlled with pain medication. PHYSICAL EXAMINATION: Blood pressure is 109/63 with a pulse of 69, temperature 98.5, she is 99% on 2 L nasal cannula. General description is an elderly female lying in bed in no distress. Respiratory system: Unlabored breathing, clear to auscultation anteriorly. Heart S1, S2. Regular rate and rhythm. Abdomen soft, no tenderness. Right BKA stump is currently dressed, no drainage on the dressing. LABS: Hemoglobin 8.8, white count 14.6, creatinine 1.41. Vancomycin trough 32.6. Repeat UA was requested, not done. DIAGNOSTIC IMPRESSION AND PLAN: 1. Patient with right diabetic foot infection with gangrene status post disarticulation followed by right yzqrj-nwv-usoy amputation with infected part removed. The patient is not bacteremic. She will not need to be on long-term antibiotic. With significantly elevated level, vancomycin will be discontinued. Continue short course of cefepime. 2. Positive culture with Elvi not albicans, possible colonization as the patient did not have any urinary symptoms. Repeat urine has been requested twice, not obtain. Will be reordered. MMODL / IJN: [id number] /
[2019-11-14 20:03] LABS: Glucose,Whole Blood 93 mg/dL (75-99)
[2019-11-15 01:16] LABS: Appearance,Urine Cloudy (Clear); Bacteria,Urine Occasional /hpf; Bilirubin,Urine Negative (Negative); Blood,Urine Small (Negative); Color,Urine Light Yellow; Glucose,Urine (UA) Negative (Negative); Ketones,Urine Negative (Negative); Leukocyte Esterase,Urine Negative (Negative); Mucus,Urine Rare /hpf; Nitrite,Urine Negative (Negative); PH, Urine 5.5 (5.0-8.0); Protein,Urine Trace (Negative); RBC,Urine 1 /hpf (0-5); Specific Gravity,Urine 1.007 (1.001-1.035); Squamous Epithelial Cell,Urine 9 /hpf (0-4); Urobilinogen,Urine <2.0 mg/dL (<2.0); WBC,Urine 1 /hpf (0-5)
[2019-11-15] MEDS: HYDROcodone/APAP 5-325MG 1 EACH TAB PO PRN ×2 (01:32→23:02)
[2019-11-15] MEDS: INSULIN ASPART (NovoLOG) 100 UNIT/ML VIAL SQ SCH ×8 (04:12→21:12)
[2019-11-15] MEDS: INSULIN DETEMIR (LEVEMIR) 100 UNIT/ML SYR SQ SCH ×3 (04:12→21:27)
[2019-11-15] MEDS: SODIUM CHLORIDE 0.9% 1,000 ML IV SCH ×2 (04:14→14:03)
[2019-11-15 07:16] LABS: Glucose,Whole Blood 187 mg/dL (75-99)
[2019-11-15] MEDS: CEFEPIME 1 GM in SODIUM CHLORIDE 0.9% 50 ML IVPB SCH ×2 (07:32→21:26)
[2019-11-15] MEDS: PANTOPRAZOLE 40 MG TABLET PO SCH ×2 (07:32→17:39)
[2019-11-15] MEDS: ASPIRIN 81 MG PO SCH (07:32)
[2019-11-15] MEDS: ATORVASTATIN 20 MG TAB PO SCH (07:32)
[2019-11-15] MEDS: carvediloL 12.5 MG TAB PO SCH (07:32)
[2019-11-15 07:33] LABS: Potassium 4.3 mmol/L (3.5-5.1)
--- NOTE | 2019-11-15 07:52 | P.PN ---
Subjective Progress Note Date: 11/14/19 Principal diagnosis: R BKA patient seen and examined. Doing well since surgery. Right leg phantom pain noted. No other complaints. Objective - Vital Signs Vital signs: Vital Signs Temp 98.3 F 11/15/19 02:13 Pulse 72 11/15/19 02:13 Resp 18 11/15/19 02:13 BP 100/60 11/15/19 02:13 Pulse Ox 96 11/15/19 02:13 Intake & Output 11/14/19 11/15/19 11/15/19 18:59 06:59 18:59 Intake Total 1850 Balance 1850 Intake: Intake, IV Titration 1250 Amount Cefepime 1 gm In Sodium 100 Chloride 0.9% 50 ml @ 12. 5 mls/hr IVPB Q12HR [facility] Rx#:[id number] Sodium Chloride 0.9% 1, 900 000 ml @ 75 mls/hr IV . [id number] [facility] Rx#:[id number] Vancomycin 1,500 mg In 250 Sodium Chloride 0.9% 250 ml @ 125 mls/hr IVPB Q16H [facility] Rx#:[id number] Oral 600 Other: # Voids 2 2 - Exam right lower extremity bka dressings in place. No drainage. Knee brace on. - Labs CBC & Chem 7: 11/14/19 07:03 11/15/19 06:51 Labs: Abnormal Lab Results - Last 24 Hours (Table) 11/14/19 11/14/19 11/15/19 Range/Units 12:02 13:02 01:02 Sodium (137-145) mmol/L BUN (7-17) mg/dL Creatinine (0.52-1.04) mg/dL Glucose (74-99) mg/dL POC Glucose (mg/dL) 138 H (75-99) mg/dL Calcium (8.4-10.2) mg/dL Urine Appearance Cloudy H (Clear) Urine Protein Trace H (Negative) Urine Blood Small H (Negative) Ur Squamous Epith Cells 9 H (0-4) /hpf Urine Bacteria Occasional H (None) /hpf Urine Mucus Rare H (None) /hpf Vancomycin Trough 32.6 H* ug/mL 11/15/19 11/15/19 Range/Units 06:51 07:15 Sodium 134 L (137-145) mmol/L BUN 24 H (7-17) mg/dL Creatinine 1.56 H (0.52-1.04) mg/dL Glucose 160 H (74-99) mg/dL POC Glucose (mg/dL) 187 H (75-99) mg/dL Calcium 8.0 L (8.4-10.2) mg/dL Urine Appearance (Clear) Urine Protein (Negative) Urine Blood (Negative) Ur Squamous Epith Cells (0-4) /hpf Urine Bacteria (None) /hpf Urine Mucus (None) /hpf Vancomycin Trough ug/mL Microbiology - Last 24 Hours (Table) 11/08/19 16:18 Blood Culture - Final Blood No Growth after 144 hours Assessment and Plan Assessment: 1. POD 2 right BKA 2. Right foot diabetic infection with gangrene 3. DM Plan: Called [facility] for dressing change to hard dressing. Remove grecia drain at next change. recommend rehab upon d/c
--- NOTE | 2019-11-15 10:10 | P.PN ---
Subjective 74-year-old patient of Dr. Rodriguez. Chronic stable medical conditions include hyperlipidemia, diabetic peripheral neuropathy, peripheral arterial disease, deviated the right leg 2012, herniated disc, primary osteoarthritis coronary artery disease with stent. Patient lives at home with her son. Pretty much using a wheelchair. However 3 weeks ago she noticed a callus at the bottom of the foot. It opened up. She and she was using her own treatment including putting alcohol swabs in it. It progressed to get worse started draining more. One of patient's daughter called in today and decided bring the patient to the ER. Right foot is draining swollen edema is. Patient has neuropathy has does not have any pain in the foot. Has lost appetite for last 3 weeks. Denies any obvious fever and chills. Daughter the bedside. Patient lives with her son Bowen. Who works at the [employer]. Today-laying in bed. Physically better. Was able to tolerate a liquid diet. Less nausea. Accu-Cheks are better. Her daughter the bedside. On IV antibiotics. 11/10/2019 Patient was evaluated by vascular surgery and patient will undergo amputation of the right foot. Not have any wound cultures available and patient is presently on broad-spectrum antibiotics vancomycin and cefepime. 11/11/2019 Patient is status post above ankle amputation on the right side. Patient remains on the same antibiotics won't cultures not available at this time. 11/12/2019 Patient is seen and evaluated in follow-up currently waiting to undergo rsefk-hca-vveo amputation of the right lower extremity with vascular surgery today. Patient is maintained on IV antibiotics in the form of vancomycin and cefepime and will continue at this time. Infectious disease is following. Dr. Gracia also consulted for possible inpatient rehab once patient is stabilized and discharged. Blood sugars are being monitored patient is maintained on long- acting along with sliding scale and will continue at this time. Will repeat a.m. labs and monitor vital signs closely. Will await vascular surgery report. 11/13/2019 Patient is seen in follow-up status post pjsnd-rfa-nnhr amputation on the right lower extremity with vascular surgery, postop day #1. Patient currently maintained on IV antibiotic therapy in the form of vancomycin and cefepime and will continue at this time. Infectious disease is following. Patient was evaluated by [facility] although states she would like to go to [facility] for continued PT/OT therapy. Case management and social work following working on discharge planning needs and placement. Blood sugars being closely monitored and patient is maintained on sliding scale along with long-acting insulin and will continue. Patient continues to work with PT/OT therapy daily. Patient is having some discomfort noted of the right surgical site although surgical site looks dry and intact with dressing just changed today. Knee immobilizer has been applied. Vascular surgery and infectious disease also following closely. 11/14/2019 Patient is overall doing well but patient renal function continued to get worse patient was hypotensive as well as hyponatremic because of these reasons I'll hold off on lisinopril patient does have a nonischemic cardio myopathy of around 30-35% but patient is hypovolemic at this time patient will be started on IV fluids hold off on Lasix at this time. We will closely monitor for any heart failure exacerbation 11/15/2019 Patient is IV fluids will be increased by 20 to closely monitor because of her nonischemic cardio myopathy patient's serum sodium remains low saturating well no evidence of heart failure at this time patient of pressure is low is comparing of the dizziness I'll change Coreg to metoprolol. We'll Allsop in a chest x-ray make sure patient doesn't have any pulmonary edema although clinically patient doesn't have any pulmonary Constitutional: Denied any fatigue denied any fever. Cardio vascular: denied any chest pain, palpitations Gastrointestinal denied any nausea vomiting Pulmonary: Denied any shortness of breath cough Neurologic denied any new focal deficits All inpatient medications were reviewed and appropriate changes in these medications as dictated in the interval history and assessment and plan. Objective - Vital Signs Vital signs: Vital Signs Temp 98.8 F 11/15/19 07:00 Pulse 104 H 11/15/19 07:00 Resp 18 11/15/19 07:00 BP 102/65 11/15/19 07:00 Pulse Ox 99 11/15/19 07:00 Intake & Output 11/14/19 11/15/19 11/15/19 18:59 06:59 18:59 Intake Total 1850 Balance 1850 Intake: Intake, IV Titration 1250 Amount Cefepime 1 gm In Sodium 100 Chloride 0.9% 50 ml @ 12. 5 mls/hr IVPB Q12HR [facility] Rx#:[id number] Sodium Chloride 0.9% 1, 900 000 ml @ 75 mls/hr IV . [id number] [facility] Rx#:[id number] Vancomycin 1,500 mg In 250 Sodium Chloride 0.9% 250 ml @ 125 mls/hr IVPB Q16H [facility] Rx#:[id number] Oral 600 Other: # Voids 2 2 - Exam GENERAL: The patient is alert and oriented x3, not in any acute distress. Well developed, well nourished. HEENT: Pupils are round and equally reacting to light. EOMI. No scleral icterus. No conjunctival pallor. Normocephalic, atraumatic. No pharyngeal erythema. No thyromegaly. CARDIOVASCULAR: S1 and S2 present. No murmurs, rubs, or gallops. PULMONARY: Chest is clear to auscultation, no wheezing or crackles. ABDOMEN: Soft, nontender, nondistended, normoactive bowel sounds. No palpable organomegaly. MUSCULOSKELETAL: No joint swelling or deformity. EXTREMITIES: No cyanosis, clubbing, or pedal edema. Status post eoblg-rzi-aqci amputation on the right with surgical dressings that are dry and intact and Elbert wrap's applied over this along with knee immobilizer noted NEUROLOGICAL: Gross neurological examination did not reveal any focal deficits. SKIN: As mentioned above - Labs CBC & Chem 7: 11/14/19 07:03 11/15/19 06:51 Labs: Abnormal Lab Results - Last 24 Hours (Table) 11/14/19 11/14/19 11/15/19 Range/Units 12:02 13:02 01:02 Sodium (137-145) mmol/L BUN (7-17) mg/dL Creatinine (0.52-1.04) mg/dL Glucose (74-99) mg/dL POC Glucose (mg/dL) 138 H (75-99) mg/dL Calcium (8.4-10.2) mg/dL Urine Appearance Cloudy H (Clear) Urine Protein Trace H (Negative) Urine Blood Small H (Negative) Ur Squamous Epith Cells 9 H (0-4) /hpf Urine Bacteria Occasional H (None) /hpf Urine Mucus Rare H (None) /hpf Vancomycin Trough 32.6 H* ug/mL 11/15/19 11/15/19 Range/Units 06:51 07:15 Sodium 134 L (137-145) mmol/L BUN 24 H (7-17) mg/dL Creatinine 1.56 H (0.52-1.04) mg/dL Glucose 160 H (74-99) mg/dL POC Glucose (mg/dL) 187 H (75-99) mg/dL Calcium 8.0 L (8.4-10.2) mg/dL Urine Appearance (Clear) Urine Protein (Negative) Urine Blood (Negative) Ur Squamous Epith Cells (0-4) /hpf Urine Bacteria (None) /hpf Urine Mucus (None) /hpf Vancomycin Trough ug/mL Microbiology - Last 24 Hours (Table) 11/08/19 16:18 Blood Culture - Final Blood No Growth after 144 hours Assessment and Plan Plan: -Diabetic foot infection: Patient is on broad-spectrum antibiotics vancomycin and cefepime, infectious disease is following. Patient is status post jyzhz-uhj-gtak amputation yesterday after recent zyxqn-ogh-gatap amputation. Wound cultures are negative -Acute renal failure secondary to diuretics so most probably these will be held and patient was started on IV fluids ELBERT inhibitor will be held as well -Hypotension secondary to heart failure medications and the antidepressants medications which will be held. -Hypovolemic hyponatremia expected to improve with IV fluids -Congestive heart heart failure chronic systolic dysfunction nonischemic cardiomyopathy patient is hypovolemic but need to be closely monitored with IV fluids. Patient has an AICD -Obesity BMI 38.7 -Diabetes mellitus type 2 chronically on insulin fairly well controlled on present regimen continue with present regimen -Coronary artery disease per history of stent -Hyperlipidemia -Essential hypertension -Peripheral arterial disease -Primary osteoarthritis -Severe diabetic peripheral neuropathy -Full code
--- NOTE | 2019-11-15 10:44 | XR ---
EXAMINATION TYPE: XR chest 1V DATE OF EXAM: 11/15/2019 COMPARISON: 11/09/2019 HISTORY: Shortness of breath TECHNIQUE: Single frontal view of the chest is obtained. FINDINGS: The heart is enlarged and there is left lower lobe consolidation. There is no overt failur e. Cardiac device seen. No pneumothorax. Arthropathy of the shoulders. Atherosclerotic change aorta. IMPRESSION: 1. Cardiomegaly with left basilar infiltrate or atelectasis. No overt failure.
[2019-11-15 11:31] LABS: Glucose,Whole Blood 145 mg/dL (75-99)
[2019-11-15 16:26] LABS: Glucose,Whole Blood 181 mg/dL (75-99)
[2019-11-15 20:58] LABS: Glucose,Whole Blood 155 mg/dL (75-99)
[2019-11-15] MEDS: METOPROLOL TARTRATE 50 MG TAB PO SCH (21:27)
[2019-11-16] MEDS: SODIUM CHLORIDE 0.9% 1,000 ML IV SCH ×3 (03:59→20:19)
[2019-11-16 07:02] LABS: Glucose,Whole Blood 243 mg/dL (75-99)
[2019-11-16] MEDS: INSULIN ASPART (NovoLOG) 100 UNIT/ML VIAL SQ SCH ×7 (07:55→20:59)
[2019-11-16] MEDS: ASPIRIN 81 MG PO SCH (07:56)
[2019-11-16] MEDS: METOPROLOL TARTRATE 50 MG TAB PO SCH ×2 (07:56→20:19)
[2019-11-16] MEDS: PANTOPRAZOLE 40 MG TABLET PO SCH ×2 (07:56→17:18)
[2019-11-16] MEDS: INSULIN DETEMIR (LEVEMIR) 100 UNIT/ML SYR SQ SCH (07:56)
[2019-11-16] MEDS: ATORVASTATIN 20 MG TAB PO SCH (07:56)
[2019-11-16 08:35] LABS: Calcium 8.4 mg/dL (8.4-10.2); Potassium 4.4 mmol/L (3.5-5.1)
[2019-11-16] MEDS: CEFEPIME 1 GM in SODIUM CHLORIDE 0.9% 50 ML IVPB SCH ×2 (10:17→20:19)
[2019-11-16 11:36] LABS: Glucose,Whole Blood 174 mg/dL (75-99)
--- NOTE | 2019-11-16 12:32 | PN ---
PROGRESS NOTE DATE OF SERVICE: 11/15/2019 REASON FOR FOLLOWUP: 1. Right diabetic foot infection. 2. Positive urine culture. INTERVAL HISTORY: The patient is currently afebrile, the patient is breathing comfortably. The patient denies having any chest pain, no shortness of breath. No cough, no nausea, no vomiting, no abdominal pain. Pain to the right BKA stump. PHYSICAL EXAMINATION: Blood pressure 120/60 with a pulse of 83, temperature 97.9, she is 98% on room air. General description is an elderly female. up in the chair in no distress. RESPIRATORY SYSTEM: Unlabored breathing, clear to auscultation anteriorly. HEART: S1, S2. Regular rate and rhythm. ABDOMEN: Soft, no tenderness. Right BKA stump is currently dressed. No obvious drainage on the dressing. LABS: BUN of 24, creatinine 1.56, repeat urine is negative. DIAGNOSTIC IMPRESSION AND PLAN: 1. Patient with right diabetic foot infection with gangrene status post right below- the-knee amputation as infected part removed, the patient was not bacteremic. She will not need to be on long-term antibiotic therapy. Currently on cefepime with plan for discontinuation on discharge. 2. Positive cultures more likely contaminant as repeat UA is negative. No need for any fungal at this point. MMODL / IJN: [id number] /
[2019-11-16] MEDS: PSYLLIUM HUSK 100% 6 GM PACKET PO SCH (12:33)
--- NOTE | 2019-11-16 13:03 | P.PN ---
Subjective Progress Note Date: 11/16/19 Principal diagnosis: severe diabetic infection of the right foot Patient was seen and examined at the bedside. The patient is status postop day #4 for right below the knee amputation. The patient states her pain is well controlled. The [employer] right foot this to come in yesterday and applied a stump portfolio management marketing to the patient. The patient states they will be coming back today as well. Denies any fever, chills, shortness of breath, or chest pain. She has been afebrile and continues with IV antibiotics. He had a PICC line placed. Objective - Vital Signs Vital signs: Vital Signs Temp 97.8 F 11/16/19 07:00 Pulse 82 11/16/19 07:00 Resp 16 11/16/19 07:00 BP 130/69 11/16/19 07:00 Pulse Ox 97 11/16/19 07:00 Intake & Output 11/15/19 11/16/19 11/16/19 18:59 06:59 18:59 Weight 108.862 kg Other: # Voids 2 2 - Exam General appearance: The patient is alert, oriented, in no acute distress. HET: Head is normocephalic and atraumatic. Neck: Supple without lymphadenopathy. Trachea midline. Heart: S1 S2. Regular rate and rhythm. Lungs: No crackles or wheezes are heard. Abdomen: Soft, nontender, nondistended with bowel sounds. No peritoneal signs. No palpable organomegaly or masses. Extremities: Right lower extremity with dressing that has some [facility] and is drainage. Dressing is changed, Tita drain was removed. Incision is well approximated, charo are intact. Incision re-dressed with her by fours, ABDs, and Kerlix dressing. Neurological: No focal deficits. Strength and sensation are grossly intact. - Labs CBC & Chem 7: 11/14/19 07:03 11/16/19 07:45 Labs: Abnormal Lab Results - Last 24 Hours (Table) 11/15/19 11/15/19 11/16/19 Range/Units 16:25 20:54 07:01 BUN (7-17) mg/dL Creatinine (0.52-1.04) mg/dL Glucose (74-99) mg/dL POC Glucose (mg/dL) 181 H 155 H 243 H (75-99) mg/dL 11/16/19 11/16/19 Range/Units 07:45 11:35 BUN 24 H (7-17) mg/dL Creatinine 1.50 H (0.52-1.04) mg/dL Glucose 212 H (74-99) mg/dL POC Glucose (mg/dL) 174 H (75-99) mg/dL Assessment and Plan Assessment: #1 postop day #4 right below the knee amputation #2 Extreme right diabetic foot infection #3 Leukocytosis secondary to above #4 Diabetes #5 Previous cardiac catheterization with stent placement Plan: Continue with daily dressing changes. Continue with IV antibiotics per recommendations from infectious disease. Prosthetic company evaluation first thumb portfolio management marketing and prostatic. The patient is cleared from vascular surgery for discharge, patient can follow- up with Dr. Henson in one week. The above dictated assessment and findings were discussed with Dr. Sarkar. The impression and plan of care have been directed as dictated.
[2019-11-16] MEDS: HYDROcodone/APAP 5-325MG 1 EACH TAB PO PRN (15:43)
[2019-11-16 16:33] LABS: Glucose,Whole Blood 171 mg/dL (75-99)
--- NOTE | 2019-11-16 18:08 | PN ---
PROGRESS NOTE DATE OF SERVICE: 11/16/2019 REASON FOR FOLLOWUP: Right diabetic foot infection. INTERVAL HISTORY: Patient is currently afebrile. The patient is breathing comfortably. Denies having any chest pain. No shortness of breath or cough. No nausea, no vomiting. No abdominal pain. Pain to the right BKA stump. PHYSICAL EXAMINATION: Blood pressure 138/55 with a pulse of 74, temperature 98. She is 98% on room air. General description: The patient is an elderly female lying in bed in no distress. Respiratory system: Unlabored breathing. Clear to auscultation anteriorly. Heart S1, S2. Regular rate and rhythm. ABDOMEN: Soft, no tenderness. LABS: BUN of 24, creatinine 1.50. DIAGNOSTIC IMPRESSION AND PLAN: 1. Patient with right diabetic foot infection in this patient who is status post disarticulation of the right ankle followed by the right zgrtz-lae-nnst amputation as infected part removed. The patient is not bacteremic. The overall stump looks clean. Antibiotic to be discontinued on discharge. 2. Patient with a positive urine culture with Elvi, likely contaminant, as the followup on repeat UA is negative. No need for any . MMODL / IJN: [id number] /
[2019-11-16 20:58] LABS: Glucose,Whole Blood 105 mg/dL (75-99)
[2019-11-16] MEDS ORDERED: INSULIN DETEMIR (LEVEMIR) 100 UNIT/ML SYR SQ SCH (21:00)
--- NOTE | 2019-11-16 22:35 | P.PN ---
Progress Note - Text Progress Note Date: 11/16/19 Chief Complaint: infected draining right foot History of presenting complaint: This is a pleasant 74-year-old patient of Dr. Rodriguez. Chronic stable medical conditions include hyperlipidemia, diabetic peripheral neuropathy, peripheral arterial disease, deviated the right leg 2013, herniated disc, primary osteoarthritis coronary artery disease with stent. Patient lives at home with her son. Pretty much using a wheelchair. However 3 weeks ago she noticed a callus at the bottom of the foot. It opened up. She and she was using her own treatment including putting alcohol swabs in it. It progressed to get worse started draining more. One of patient's daughter called in today and decided bring the patient to the ER. Right foot is draining swollen edema is. Patient has neuropathy has does not have any pain in the foot. Has lost appetite for last 3 weeks. Denies any obvious fever and chills. Daughter the bedside. Patient lives with her son Bowen. Who works at the [employer]. Hospital course: On November 09 patient underwent right foot guillotine amputation.-By Dr. Sarkar. Then on November 11 patient underwent right below-knee amputation by Dr. Henson. Today-patient sitting up in bed. Pain is controlled. Has been started some diet. Daughter the bedside. Review of systems: Was done for constitutional, cardiovascular, GI, pulmonary. relevant finding as above Active Medications Acetaminophen (Tylenol Tab) 650 mg PO Q6HR PRN PRN Reason: Mild Pain or Fever > 100.5 Last Admin: 11/10/19 22:51 Dose: 650 mg Documented by: Hydrocodone Bitart/Acetaminophen (Hydrocodone/Apap 5-325mg 1 Each Tab) 2 each PO Q6HR PRN PRN Reason: Pain Last Admin: 11/16/19 15:43 Dose: 2 each Documented by: Al Hydroxide/Mg Hydroxide (Maalox) 15 ml PO Q6HR PRN PRN Reason: Indigestion Aspirin (Aspirin) 81 mg PO DAILY ON LICENSE OF [facility] Last Admin: 11/16/19 07:56 Dose: 81 mg Documented by: Atorvastatin Calcium (Lipitor) 20 mg PO DAILY ON LICENSE OF [facility] Last Admin: 11/16/19 07:56 Dose: 20 mg Documented by: Calcium Carbonate/Glycine (Tums) 1,000 mg PO Q4HR PRN PRN Reason: Dyspepsia Cefepime HCl 1 gm/ Sodium (Chloride) 50 mls @ 12.5 mls/hr IVPB Q12HR ON LICENSE OF [facility] Last Admin: 11/16/19 20:19 Dose: 12.5 mls/hr Documented by: Sodium Chloride (Saline 0.9%) 1,000 mls @ 100 mls/hr IV .Q10H ON LICENSE OF [facility] Last Admin: 11/16/19 20:19 Dose: 100 mls/hr Documented by: Insulin Aspart (Novolog) 0 unit SQ ACHS ON LICENSE OF [facility]; Protocol Last Admin: 11/16/19 20:59 Dose: Not Given Documented by: Insulin Aspart (Insulin Aspart (Novolog) 100 Unit/Ml Vial) 10 unit SQ AC-TID ON LICENSE OF [facility] Last Admin: 11/16/19 17:19 Dose: 10 unit Documented by: Insulin Detemir (Insulin Detemir (Levemir) 100 Unit/Ml Syr) 70 unit SQ HS ON LICENSE OF [facility] Last Admin: 11/16/19 21:00 Dose: 70 unit Documented by: Lactulose (Cephulac) 20 gm PO DAILY PRN PRN Reason: Constipation Magnesium Hydroxide (Milk Of Magnesia) 2,400 mg PO DAILY PRN PRN Reason: Constipation Melatonin (Melatonin) 3 mg PO HS PRN PRN Reason: Insomnia Last Admin: 11/09/19 21:04 Dose: 3 mg Documented by: Metoprolol Tartrate (Metoprolol Tartrate 50 Mg Tab) 100 mg PO BID ON LICENSE OF [facility] Last Admin: 11/16/19 20:19 Dose: 100 mg Documented by: Naloxone HCl (Narcan) 0.2 mg IV Q2M PRN PRN Reason: Opioid Reversal Ondansetron HCl (Ondansetron 4 Mg/2 Ml Vial) 4 mg IVP Q8HR PRN PRN Reason: Nausea And Vomiting Last Admin: 11/12/19 15:22 Dose: 4 mg Documented by: Pantoprazole Sodium (Protonix) 40 mg PO AC-BID ON LICENSE OF [facility] Last Admin: 11/16/19 17:18 Dose: 40 mg Documented by: Psyllium Hydrophilic Mucilloid (Psyllium Husk 100% 6 Gm Packet) 6 gm PO DAILY ON LICENSE OF [facility] Last Admin: 11/16/19 12:33 Dose: Not Given Documented by: Physical examination: VITAL SIGNS: 87.8, 82, 16, 132/70, 97% room air GENERAL: Propped up in bed, awake, comfortable EYES: Pupils equal. Conjunctiva normal. HEENT: External appearance of nose and ears normal, oral cavity grossly normal. NECK: JVD not raised; masses not palpable. HEART: First and second heart sounds are normal; no edema. LUNGS: Respiratory rate normal; decreased breath sounds. ABDOMEN: Soft, nontender, liver spleen not palpable, no masses palpable. PSYCH: Alert and oriented x3; mood and affect normal. EXTREMITY: Right below-knee amputation with a dressing in place INVESTIGATIONS, reviewed in the clinical context: Potassium 4.4 bun 24 creatinine 1.50 Previous testing White count 30.4 hemoglobin 10.9 increased neutrophils sodium 128 potassium 5 creatinine 0.68 glucose 403, albumin 3.1 EKG tracing personally reviewed by me-normal sinus rhythm nonspecific ST segment changes Foot x-ray soft tissue swelling no obvious signs of osteomyelitis some findings of neuropathy, arthropathy Assessment: -This is a patient with diabetic peripheral neuropathy no sensation to foot noticed 3 weeks ago callus that broke down foot has been swollen and draining. This is a very large opening on the bottom of the foot very infected. Status post guillotine surgery of the ankle followed by a right below-knee amputation -Acute kidney injury likely ATN could be from sepsis -Right foot severe cellulitis with abscess causing sepsis-POA -Right foot diabetic foot wound on the plantar surface -Obesity BMI 38.7 -Diabetes mellitus type 2 chronically on insulin uncontrolled with hyperglycemia -Coronary artery disease per history of stent -Hyper lipidemia -Essential hypertension -Peripheral arterial disease -Primary osteoarthritis -AICD -Severe diabetic peripheral neuropathy Plan: Continue with IV fluids. Antibiotic include cefepime. Insulin dose is being adjusted. Increase the evening dose of Levemir to 70 units. DC the morning dose of 30 units. Increase NovoLog to 10 units before meals 3 times a day. Diet and insulin was discussed in detail with the patient and daughter the bedside. Total time spent today was about 40 minutes with over 25 minutes of discussion.
[2019-11-17] MEDS: SODIUM CHLORIDE 0.9% 1,000 ML IV SCH ×2 (05:56→18:36)
[2019-11-17 07:24] LABS: Glucose,Whole Blood 94 mg/dL (75-99)
[2019-11-17] MEDS: INSULIN ASPART (NovoLOG) 100 UNIT/ML VIAL SQ SCH ×7 (07:49→21:21)
[2019-11-17] MEDS: PANTOPRAZOLE 40 MG TABLET PO SCH ×3 (07:57→17:22)
[2019-11-17] MEDS: ASPIRIN 81 MG PO SCH (09:57)
[2019-11-17] MEDS: ATORVASTATIN 20 MG TAB PO SCH (09:58)
[2019-11-17] MEDS: METOPROLOL TARTRATE 50 MG TAB PO SCH ×2 (09:58→21:23)
[2019-11-17] MEDS: CEFEPIME 1 GM in SODIUM CHLORIDE 0.9% 50 ML IVPB SCH ×2 (09:59→21:20)
[2019-11-17 10:09] LABS: African American GFR (CKD) 39.1 (60.0-200.0); Anion Gap 6.6 mmol/L (4.00-12.00); Calcium 8.2 mg/dL (8.7-10.3); Carbon Dioxide 26.4 mmol/L (21.6-31.8); Non-African American GFR(CKD) 33.7 (60.0-200.0); Potassium 3.8 mmol/L (3.5-5.5)
[2019-11-17] MEDS: HYDROcodone/APAP 5-325MG 1 EACH TAB PO PRN ×2 (10:17→17:39)
[2019-11-17 11:30] LABS: Glucose,Whole Blood 155 mg/dL (75-99)
[2019-11-17] MEDS: PSYLLIUM HUSK 100% 6 GM PACKET PO SCH (12:06)
--- NOTE | 2019-11-17 15:46 | PN ---
PROGRESS NOTE DATE OF SERVICE: 11/17/2019 REASON FOR FOLLOWUP: Right diabetic foot infection. INTERVAL HISTORY: The patient is currently afebrile. The patient is feeling better. Breathing comfortably. Denies having any chest pain or shortness of breath or cough. No nausea, no vomiting, no abdominal pain or pain to the right BKA stump. PHYSICAL EXAMINATION: Blood pressure 134/69, pulse of 68, temperature 98.1, she is 98% on room air. General description is an elderly female, lying in bed in no distress. RESPIRATORY SYSTEM: Unlabored breathing, clear to auscultation anteriorly. HEART: S1, S2. Regular rate and rhythm. ABDOMEN: Soft. No tenderness. Right BKA stump is currently dressed, no drainage on the dressing. LABS: Creatinine is 1.5. DIAGNOSTIC IMPRESSION AND PLAN: 1. Patient with right diabetic foot infection with gangrene of the right foot, status post disarticulation of the ankle followed by right [id number] amputation with infected part, patient is not bacteremic. will be discontinued on discharge. 2. Positive urine culture, possible contamination. Repeat urine negative. No need for any antifungal treatment. MMODL / IJN: [id number] /
[2019-11-17 16:34] LABS: Glucose,Whole Blood 92 mg/dL (75-99)
--- NOTE | 2019-11-17 17:20 | P.PN ---
Progress Note - Text Progress Note Date: 11/17/19 Chief Complaint: infected draining right foot History of presenting complaint: This is a pleasant 74-year-old patient of Dr. Rodriguez. Chronic stable medical conditions include hyperlipidemia, diabetic peripheral neuropathy, peripheral arterial disease, deviated the right leg 2013, herniated disc, primary osteoarthritis coronary artery disease with stent. Patient lives at home with her son. Pretty much using a wheelchair. However 3 weeks ago she noticed a callus at the bottom of the foot. It opened up. She and she was using her own treatment including putting alcohol swabs in it. It progressed to get worse started draining more. One of patient's daughter called in today and decided bring the patient to the ER. Right foot is draining swollen edema is. Patient has neuropathy has does not have any pain in the foot. Has lost appetite for last 3 weeks. Denies any obvious fever and chills. Daughter the bedside. Patient lives with her son Bowen. Who works at the [employer]. Hospital course: On November 09 patient underwent right foot guillotine amputation.-By Dr. Sarkar. Then on November 11 patient underwent right below-knee amputation by Dr. Henson. Today-laying in bed. Feeling a bit tired. Appetite slowly improving. Review of systems: Was done for constitutional, cardiovascular, GI, pulmonary. relevant finding as above Active Medications Acetaminophen (Tylenol Tab) 650 mg PO Q6HR PRN PRN Reason: Mild Pain or Fever > 100.5 Last Admin: 11/10/19 22:51 Dose: 650 mg Documented by: Hydrocodone Bitart/Acetaminophen (Hydrocodone/Apap 5-325mg 1 Each Tab) 2 each PO Q6HR PRN PRN Reason: Pain Last Admin: 11/17/19 10:17 Dose: 2 each Documented by: Al Hydroxide/Mg Hydroxide (Maalox) 15 ml PO Q6HR PRN PRN Reason: Indigestion Aspirin (Aspirin) 81 mg PO DAILY [facility] Last Admin: 11/17/19 09:57 Dose: 81 mg Documented by: Atorvastatin Calcium (Lipitor) 20 mg PO DAILY [facility] Last Admin: 11/17/19 09:58 Dose: 20 mg Documented by: Calcium Carbonate/Glycine (Tums) 1,000 mg PO Q4HR PRN PRN Reason: Dyspepsia Cefepime HCl 1 gm/ Sodium (Chloride) 50 mls @ 12.5 mls/hr IVPB Q12HR [facility] Last Admin: 11/17/19 09:59 Dose: 12.5 mls/hr Documented by: Sodium Chloride (Saline 0.9%) 1,000 mls @ 100 mls/hr IV .Q10H [facility] Last Admin: 11/17/19 05:56 Dose: 100 mls/hr Documented by: Insulin Aspart (Novolog) 0 unit SQ ACHS [facility]; Protocol Last Admin: 11/17/19 16:32 Dose: Not Given Documented by: Insulin Aspart (Insulin Aspart (Novolog) 100 Unit/Ml Vial) 10 unit SQ AC-TID [facility] Last Admin: 11/17/19 16:33 Dose: Not Given Documented by: Insulin Detemir (Insulin Detemir (Levemir) 100 Unit/Ml Syr) 70 unit SQ HS [facility] Last Admin: 11/16/19 21:00 Dose: 70 unit Documented by: Lactulose (Cephulac) 20 gm PO DAILY PRN PRN Reason: Constipation Magnesium Hydroxide (Milk Of Magnesia) 2,400 mg PO DAILY PRN PRN Reason: Constipation Melatonin (Melatonin) 3 mg PO HS PRN PRN Reason: Insomnia Last Admin: 11/09/19 21:04 Dose: 3 mg Documented by: Metoprolol Tartrate (Metoprolol Tartrate 50 Mg Tab) 100 mg PO BID [facility] Last Admin: 11/17/19 09:58 Dose: 50 mg Documented by: Naloxone HCl (Narcan) 0.2 mg IV Q2M PRN PRN Reason: Opioid Reversal Ondansetron HCl (Ondansetron 4 Mg/2 Ml Vial) 4 mg IVP Q8HR PRN PRN Reason: Nausea And Vomiting Last Admin: 11/12/19 15:22 Dose: 4 mg Documented by: Pantoprazole Sodium (Protonix) 40 mg PO AC-BID [facility] Last Admin: 11/17/19 07:57 Dose: 40 mg Documented by: Psyllium Hydrophilic Mucilloid (Psyllium Husk 100% 6 Gm Packet) 6 gm PO DAILY [facility] Last Admin: 11/17/19 12:06 Dose: 6 gm Documented by: Physical examination: VITAL SIGNS: 98.1, 68, 14, 130/69, 93% room air GENERAL: Laying in bed, awake EYES: Pupils equal. Conjunctiva normal. NECK: JVD not raised; masses not palpable. HEART: First and second heart sounds are normal; no edema. LUNGS: Respiratory rate normal; decreased breath sounds. ABDOMEN: Soft, nontender, liver spleen not palpable, no masses palpable. PSYCH: Alert and oriented x3; mood and affect normal. EXTREMITY: Right below-knee amputation with a dressing in place INVESTIGATIONS, reviewed in the clinical context: Potassium 3.8 creatinine 1.5 Accu-Cheks 94, 155, 92 Previous testing White count 30.4 hemoglobin 10.9 increased neutrophils sodium 128 potassium 5 creatinine 0.68 glucose 403, albumin 3.1 EKG tracing personally reviewed by me-normal sinus rhythm nonspecific ST segment changes Foot x-ray soft tissue swelling no obvious signs of osteomyelitis some findings of neuropathy, arthropathy Assessment: -This is a patient with diabetic peripheral neuropathy no sensation to foot noticed 3 weeks ago callus that broke down foot has been swollen and draining. This is a very large opening on the bottom of the foot very infected. Status post guillotine surgery of the ankle followed by a right below-knee amputation -Acute kidney injury likely ATN could be from sepsis -Right foot severe cellulitis with abscess causing sepsis-POA -Right foot diabetic foot wound on the plantar surface -Obesity BMI 38.7 -Diabetes mellitus type 2 chronically on insulin uncontrolled with hyperglycemia-now better controlled -Coronary artery disease per history of stent -Hyper lipidemia -Essential hypertension -Peripheral arterial disease -Primary osteoarthritis -AICD -Severe diabetic peripheral neuropathy Plan: Continue with IV fluids. IV cefepime Insulin dose is being adjusted. We will decrease the evening dose of Levemir to 64 units. Oral intake encouraged. Discussed with Dr. Santillan from ID. No need for antibiotic support discharge. Repeat labs in the morning.
[2019-11-17] MEDS ORDERED: INSULIN DETEMIR (LEVEMIR) 100 UNIT/ML SYR SQ SCH (21:00)
[2019-11-17 21:15] LABS: Glucose,Whole Blood 166 mg/dL (75-99)
[2019-11-17 22:19] LABS: Hemoglobin A1C 11.4 % (4.0-6.0)
[2019-11-18] MEDS: SODIUM CHLORIDE 0.9% 1,000 ML IV SCH ×2 (02:32→13:39)
[2019-11-18 06:58] LABS: Glucose,Whole Blood 92 mg/dL (75-99)
[2019-11-18 07:36] VITALS: BP 151/69; PULSE 74; RESP 16; TEMP 98.2
[2019-11-18] MEDS: INSULIN ASPART (NovoLOG) 100 UNIT/ML VIAL SQ SCH ×4 (07:52→13:39)
[2019-11-18] MEDS: PANTOPRAZOLE 40 MG TABLET PO SCH (08:18)
[2019-11-18] MEDS: ASPIRIN 81 MG PO SCH (08:18)
[2019-11-18] MEDS: METOPROLOL TARTRATE 50 MG TAB PO SCH (08:19)
[2019-11-18] MEDS: ATORVASTATIN 20 MG TAB PO SCH (08:19)
[2019-11-18] MEDS: CEFEPIME 1 GM in SODIUM CHLORIDE 0.9% 50 ML IVPB SCH (08:20)
[2019-11-18] MEDS: PSYLLIUM HUSK 100% 6 GM PACKET PO SCH (08:27)
[2019-11-18] MEDS: HYDROcodone/APAP 5-325MG 1 EACH TAB PO PRN ×2 (09:32→13:40)
[2019-11-18 10:13] LABS: African American GFR (CKD) 42.5 (60.0-200.0); Anion Gap 7.7 mmol/L (4.00-12.00); Carbon Dioxide 25.3 mmol/L (21.6-31.8); Non-African American GFR(CKD) 36.7 (60.0-200.0); Potassium 3.8 mmol/L (3.5-5.5)
--- NOTE | 2019-11-18 11:26 | P.PN ---
Subjective Progress Note Date: 11/18/19 Principal diagnosis: severe diabetic infection of the right foot Patient seen and examined at bedside. Patient was working with physical therapy on ambulation. [facility] has seen patient will continue to follow in rehab. Patient denies any severe pain, fevers, or chills. Objective - Vital Signs Vital signs: Vital Signs Temp 98.2 F 11/18/19 07:35 Pulse 74 11/18/19 07:35 Resp 16 11/18/19 07:35 BP 151/69 11/18/19 07:35 Pulse Ox 97 11/18/19 01:10 Intake & Output 11/17/19 11/18/19 11/18/19 18:59 06:59 18:59 Intake Total 750 300 Output Total 2 Balance 750 298 Intake: Intake, IV Titration 750 300 Amount Cefepime 1 gm In Sodium 50 Chloride 0.9% 50 ml @ 12. 5 mls/hr IVPB Q12HR [facility] Rx#:[id number] Sodium Chloride 0.9% 1, 700 300 000 ml @ 100 mls/hr IV . Q10H [facility] Rx#:[id number] Output: Stool 2 Other: Voiding Method Bedside Commode Bedside Commode Bedpan Bedpan # Voids 1 # Bowel Movements 1 - Exam General appearance: The patient is alert, oriented, in no acute distress. HET: Head is normocephalic and atraumatic. Neck: Supple without lymphadenopathy. Trachea midline. Heart: S1 S2. Regular rate and rhythm. Lungs: No crackles or wheezes are heard. Abdomen: Soft, nontender, nondistended with bowel sounds. No peritoneal signs. No palpable organomegaly or masses. Extremities: Right lower extremity with dressing. Neurological: No focal deficits. Strength and sensation are grossly intact. - Labs CBC & Chem 7: 11/14/19 07:03 11/18/19 05:34 Labs: Abnormal Lab Results - Last 24 Hours (Table) 11/17/19 11/17/19 11/17/19 Range/Units 05:45 11:29 21:13 Est GFR (CKD-EPI)AfAm (60.0-200.0) Est GFR (CKD-EPI)NonAf (60.0-200.0) POC Glucose (mg/dL) 155 H 166 H (75-99) mg/dL Hemoglobin A1c 11.4 H (4.0-6.0) % Calcium (8.7-10.3) mg/dL 11/18/19 Range/Units 05:34 Est GFR (CKD-EPI)AfAm 42.5 L (60.0-200.0) Est GFR (CKD-EPI)NonAf 36.7 L (60.0-200.0) POC Glucose (mg/dL) (75-99) mg/dL Hemoglobin A1c (4.0-6.0) % Calcium 8.0 L (8.7-10.3) mg/dL Assessment and Plan Assessment: #1 postop day #4 right below the knee amputation #2 Extreme right diabetic foot infection #3 Leukocytosis secondary to above #4 Diabetes #5 Previous cardiac catheterization with stent placement Plan: Continue with daily dressing changes. Continue with IV antibiotics per recommendations from infectious disease. Prosthetic company evaluation first thumb crm solution architect and prostatic. The patient is cleared from vascular surgery for discharge, patient can follow- up with Dr. Henson in one week. The above dictated assessment and findings were discussed with Dr. Sarkar. The impression and plan of care have been directed as dictated.
[2019-11-18 11:42] LABS: Glucose,Whole Blood 129 mg/dL (75-99)
--- NOTE | 2019-11-18 12:08 | PN ---
PROGRESS NOTE DATE OF SERVICE: 11/18/2019 REASON FOR FOLLOWUP: 1. Right diabetic foot infection. 2. Positive urine culture. INTERVAL HISTORY: The patient is currently afebrile. The patient is feeling better. Breathing comfortably. The patient denies having any chest pain. No shortness of breath or cough. No nausea. No abdominal pain. No pain to the right BKA stump. PHYSICAL EXAMINATION: Blood pressure 151/69 with a pulse of 74, temperature of 98.2. She is 97% on room air. General description is an elderly female, lying in bed in no distress. RESPIRATORY SYSTEM: Unlabored breathing, clear to auscultation anteriorly. HEART: S1, S2. Regular rate and rhythm. ABDOMEN: Soft, no tenderness. Right BKA stump is currently dressed, no drainage on the dressing. DIAGNOSTIC IMPRESSION AND PLAN: 1. Patient with right diabetic foot infection with gangrene, status post disarticulation followed by right [id number] amputation with infected part removed. She was antibiotic on discharge. This was discussed with the admitting physician yesterday. 2. The patient positive culture with Elvi albicans, possible contaminant. Repeat urine negative. Patient has no symptoms, no need for Diflucan on discharge. MMODL / IJN: [id number] /
--- NOTE | 2019-11-18 13:14 | P.DS ---
Providers Date of admission: 11/08/19 17:49 Expected date of discharge: 11/18/19 Attending physician: Yao Olivas Consults: 11/08/19 17:50 Consult Physician Routine Consulting Provider: Mami Sarkar Consult Reason/Comments: Right foot infection Do you want consulting provider notified?: Yes Consult Physician Routine Consulting Provider: Cici Farris Consult Reason/Comments: Right foot infection Do you want consulting provider notified?: Yes 11/09/19 15:30 Consult Physician Routine Consulting Provider: Sylvester Marcum Consult Reason/Comments: CAD-perioperative management Do you want consulting provider notified?: Yes 11/12/19 10:33 Consult Physician Routine Consulting Provider: Yaakov Gracia Consult Reason/Comments: IPR Do you want consulting provider notified?: Yes Primary care physician: [facility] Course: Chief Complaint: infected draining right foot History of presenting complaint: This is a pleasant 74-year-old patient of Dr. Rodriguez. Chronic stable medical conditions include hyperlipidemia, diabetic peripheral neuropathy, peripheral arterial disease, deviated the right leg 2013, herniated disc, primary osteoarthritis coronary artery disease with stent. Patient lives at home with her son. Pretty much using a wheelchair. However 3 weeks ago she noticed a callus at the bottom of the foot. It opened up. She and she was using her own treatment including putting alcohol swabs in it. It progressed to get worse started draining more. One of patient's daughter called in today and decided bring the patient to the ER. Right foot is draining swollen edema is. Patient has neuropathy has does not have any pain in the foot. Has lost appetite for last 3 weeks. Denies any obvious fever and chills. Daughter the bedside. Patient lives with her son Bowen. Who works at the [employer]. Hospital course: On November 09 patient underwent right foot guillotine amputation.-By Dr. Sarkar. Then on November 11 patient underwent right below-knee amputation by Dr. Henson. Today-cheerful. Eating. Did work with therapy. Care was discussed with the patient. Antibiotics discontinued as per ID.wound care as per vascular surgery Discussion and discharge planning more than 35 minutes Consultation: Dr. Farris from [facility] Dr. Sarkar -vascular surgery [facility]. Physical examination: VITAL SIGNS: 98.2, 74, 16, 151/69, 97% room air GENERAL: sitting at the edge of the bed, comfortable EYES: Pupils equal. Conjunctiva normal. NECK: JVD not raised; masses not palpable. HEART: First and second heart sounds are normal; no edema. LUNGS: Respiratory rate normal; decreased breath sounds. ABDOMEN: Soft, nontender, liver spleen not palpable, no masses palpable. PSYCH: Alert and oriented x3; mood and affect normal. EXTREMITY: Right below-knee amputation with a dressing in place INVESTIGATIONS, reviewed in the clinical context: potassium 3.8 creatinine 1.4 Accu-Cheks 92, 129 Previous testing White count 30.4 hemoglobin 10.9 increased neutrophils sodium 128 potassium 5 creatinine 0.68 glucose 403, albumin 3.1 EKG tracing personally reviewed by me-normal sinus rhythm nonspecific ST segment changes Foot x-ray soft tissue swelling no obvious signs of osteomyelitis some findings of neuropathy, arthropathy Assessment: -right foot diabetic ulceron the plantar surface with abscess and cellulitis acute. Causing sepsis. POA Status post guillotine surgery of the ankle followed by a right below-knee amputation -Acute kidney injury likely ATN could be from sepsis -Obesity BMI 38.7 -Diabetes mellitus type 2 chronically on insulin uncontrolled with hyperglycemia-now better controlled -Coronary artery disease per history of stent -Hyper lipidemia -Essential hypertension -Peripheral arterial disease -Primary osteoarthritis -AICD -Severe diabetic peripheral neuropathy disposition: [facility] Labs: CBC BMP 3 days Patient Condition at Discharge: Stable Plan - Discharge Summary Discharge Rx Participant: No New Discharge Prescriptions: New Atorvastatin [Lipitor] 20 mg PO DAILY tab Metoprolol Tartrate [Lopressor] 100 mg PO BID tab Melatonin 3 mg PO HS PRN tablet PRN Reason: Insomnia Psyllium Husk 100% [Metamucil Packet] 6 gm PO DAILY packet INSULIN ASPART (NovoLOG) [NovoLOG (formulary)] 0 unit SQ ACHS vial Famotidine [Pepcid] 20 mg PO BID #1 tablet HYDROcodone/APAP 5-325MG [[place] 5-325] 1 each PO Q6HR PRN #12 tab PRN Reason: Pain Continue Aspirin 81 mg PO DAILY Insulin Glargine,Hum.rec.anlog [Lantus Solostar] 60 unit SQ HS Changed Insulin Lispro [humaLOG Kwikpen] 7 unit SQ AC-TID #0 Discontinued Carvedilol 25 mg PO BID lisinopriL [Zestril] 2.5 mg PO DAILY Furosemide [Lasix] 40 mg PO DAILY Insulin Lispro [humaLOG Kwikpen] 7 unit SQ W/BRKFST Insulin Lispro [humaLOG Kwikpen] 26 unit SQ W/SUPPER Insulin Glargine,Hum.rec.anlog [Lantus Solostar] 30 unit SQ DAILY Discharge Medication List Aspirin 81 mg PO DAILY 07/14/13 [History] Insulin Glargine,Hum.rec.anlog [Lantus Solostar] 60 unit SQ HS 11/08/19 [History] Atorvastatin [Lipitor] 20 mg PO DAILY tab 11/18/19 [Rx] Famotidine [Pepcid] 20 mg PO BID #1 tablet 11/18/19 [Rx] HYDROcodone/APAP 5-325MG [[place] 5-325] 1 each PO Q6HR PRN #12 tab 11/18/19 [Rx] INSULIN ASPART (NovoLOG) [NovoLOG (formulary)] 0 unit SQ ACHS vial 11/18/19 [Rx] Insulin Lispro [humaLOG Kwikpen] 7 unit SQ AC-TID #0 11/18/19 [Rx] Melatonin 3 mg PO HS PRN tablet 11/18/19 [Rx] Metoprolol Tartrate [Lopressor] 100 mg PO BID tab 11/18/19 [Rx] Psyllium Husk 100% [Metamucil Packet] 6 gm PO DAILY packet 11/18/19 [Rx] Follow up Appointment(s)/Referral(s): Armando Harvey MD [STAFF PHYSICIAN] - 12/04/19 3:30 pm Richard Rodriguez DO [Primary Care Provider] - 1-2 days (Office will call you with your appointment date and time.) Margarito Jacob DO [Doctor of Osteopathic Medicine] - 1 Week
== END 2019-11-18 14:57 | DRG 853 ==
LOC: EC 15:24 → 4SSUR 17:49
PROVIDERS: ADMIT Hospitalist; ATTEND Hospitalist
PROC: 0Y6M0Z0 Detachment at Right Foot, Complete, Open Approach (ICD-10-PCS; 2019-11-10)
PROC: 05HF33Z Insertion of Infusion Device into Left Cephalic Vein, Percutaneous Approach (ICD-10-PCS; 2019-11-12)
PROC: 0Y6H0Z1 Detachment at Right Lower Leg, High, Open Approach (ICD-10-PCS; principal; 2019-11-12 07:30)
PROC: 05HF33Z Insertion of Infusion Device into Left Cephalic Vein, Percutaneous Approach (ICD-10-PCS; 2019-11-16)
DX: A41.9 Sepsis, unspecified organism (principal); N17.0 Acute kidney failure with tubular necrosis; E11.52 Type 2 diabetes mellitus with diabetic peripheral angiopathy with gangrene; E87.1 Hypo-osmolality and hyponatremia; I50.22 Chronic systolic (congestive) heart failure; L03.115 Cellulitis of right lower limb; E11.42 Type 2 diabetes mellitus with diabetic polyneuropathy; E11.610 Type 2 diabetes mellitus with diabetic neuropathic arthropathy; E11.621 Type 2 diabetes mellitus with foot ulcer; E11.628 Type 2 diabetes mellitus with other skin complications; E11.65 Type 2 diabetes mellitus with hyperglycemia; E11.649 Type 2 diabetes mellitus with hypoglycemia without coma; E66.9 Obesity, unspecified; E78.5 Hyperlipidemia, unspecified; E86.1 Hypovolemia; G54.6 Phantom limb syndrome with pain; H91.90 Unspecified hearing loss, unspecified ear; I11.0 Hypertensive heart disease with heart failure; I25.10 Atherosclerotic heart disease of native coronary artery without angina pectoris; I25.2 Old myocardial infarction; I25.5 Ischemic cardiomyopathy; Z20.828 Contact with and (suspected) exposure to other viral communicable diseases; I44.0 Atrioventricular block, first degree; R65.20 Severe sepsis without septic shock; L97.519 Non-pressure chronic ulcer of other part of right foot with unspecified severity; M19.91 Primary osteoarthritis, unspecified site; Z68.38 Body mass index [BMI] 38.0-38.9, adult; Z79.4 Long term (current) use of insulin; Z79.82 Long term (current) use of aspirin; Z79.899 Other long term (current) drug therapy; Z86.718 Personal history of other venous thrombosis and embolism; Z87.891 Personal history of nicotine dependence; Z88.0 Allergy status to penicillin; Z88.1 Allergy status to other antibiotic agents; Z91.041 Radiographic dye allergy status; Z95.5 Presence of coronary angioplasty implant and graft; Z95.810 Presence of automatic (implantable) cardiac defibrillator; Z90.49 Acquired absence of other specified parts of digestive tract; Z89.421 Acquired absence of other right toe(s); L84 Corns and callosities
CPT/HCPCS: 36410; 71045; 71046; 76937; 80048; 80053; 80202; 81001; 82565; 83036; 83605; 83735; 85025; 85027; 85610; 85730; 87040; 87086; 93005; 93306; 96365; 96366; 96375; 99291

== ENCOUNTER 2023-09-04 15:39 | Observation (INO) | payer MEDICARE ==
--- NOTE | 2023-09-04 16:33 | ED ---
Skin/Abscess/FB HPI - General Chief complaint: Skin/Abscess/Foreign Body Stated complaint: L leg rash Time Seen by Provider: 09/04/23 16:00 Source: patient, RN notes reviewed Mode of arrival: wheelchair Limitations: no limitations - History of Present Illness Initial comments: 78-year-old female with history of right leg amputation, diabetes mellitus, DVT, and CAD presenting with left leg edema. Patient states the leg has been swollen with a rash intermittently since 2012. She states it has been worsening over the past few months and she now notes an ulcer on the front of the leg. Patient has neuropathy and has no feeling in the leg. Patient has not been able to ambulate since the amputation of her right leg in 2019. Patient explains she la d cellulitis of the right leg and sepsis leading to amputation. She used to see a chemical engineer for the rash on the leg but has not seen them in many years. She also admits she has not seen a doctor "in a very long time". She is not on a blood thinner. Denies fever, chills. Denies chest pain or shortness of breath. - Related Data Home Medications Medication Instructions Recorded Confirmed Aspirin 81 mg PO DAILY 07/14/13 09/04/23 Insulin Glargine,Hum.rec.anlog 60 unit SQ HS 11/08/19 09/04/23 [Lantus Solostar Pen] Atorvastatin [Lipitor] 40 mg PO DAILY 09/04/23 09/04/23 Insulin Glargine,Hum.rec.anlog 30 units SQ DAILY 09/04/23 09/04/23 [Lantus Solostar Pen] Insulin Lispro [humaLOG Kwikpen] 7 unit SQ AC-BRKFST 09/04/23 09/04/23 Insulin Lispro [humaLOG Kwikpen] 14 unit SQ AC-LUNCH 09/04/23 09/04/23 Insulin Lispro [humaLOG Kwikpen] 24 unit SQ AC-SUPPER 09/04/23 09/04/23 Metoprolol Succinate (ER) [Toprol 150 mg PO DAILY 09/04/23 09/04/23 Xl] Allergies Allergy/AdvReac Type Severity Reaction Status Date / Time clindamycin Allergy Rash/Hives Verified 09/04/23 16:33 Iodinated Contrast Media Allergy Rash/Hives Verified 09/04/23 16:33 [Iodinated Contrast Media - IV Dye] Penicillins Allergy Rapid Verified 09/04/23 16:33 Heart Rate & SOB CRANBERRIES Allergy Rash/Hives Uncoded 09/04/23 15:43 Review of Systems ROS Statement: Those systems with pertinent positive or pertinent negative responses have been documented in the HPI. ROS Other: All systems not noted in ROS Statement are negative. Past Medical History Past Medical History: Diabetes Mellitus, Deep Vein Thrombosis (DVT), Hearing Disorder / Deafness, Hyperlipidemia, Myocardial Infarction ([place]), Skin Disorder, Vascular Disorder Additional Past Medical History / Comment(s): PERIPHERAL VASCULAR DISEASE, DVT RT LEG 2013, hernia, hx pancreatitis, bulging disk, arthritis, dry skin, hard of hearing Last Myocardial Infarction Date:: 2006 History of Any Multi-Drug Resistant Organisms: None Reported Past Surgical History: AICD, Cholecystectomy, Heart Catheterization With Stent, Orthopedic Surgery Additional Past Surgical History / Comment(s): amputation small toe rt foot. Past Anesthesia/Blood Transfusion Reactions: No Reported Reaction Date of Last Stent Placement:: 2006 Type of Cardiac Device: AICD Device Placement Date:: 2006 [facility] Past Psychological History: No Psychological Hx Reported Smoking Status: Never smoker Past Alcohol Use History: None Reported Past Drug Use History: None Reported - Past Family History Father Family Medical History: Cancer General Exam Limitations: no limitations General appearance: alert, in no apparent distress Head exam: Present: atraumatic, normocephalic, normal inspection Respiratory exam: Present: normal lung sounds bilaterally. Absent: respiratory distress, wheezes, rales, rhonchi, stridor Cardiovascular Exam: Present: regular rate, normal rhythm, normal heart sounds. Absent: systolic murmur, diastolic murmur, rubs, gallop, clicks GI/Abdominal exam: Present: soft, normal bowel sounds. Absent: distended, tenderness, guarding, rebound, rigid Left Upper Leg exam: Present: normal inspection, full ROM. Absent: tenderness, swelling Knee exam: Present: normal inspection, full ROM. Absent: tenderness, swelling Lower Leg exam: Present: full ROM, swelling (2+ pitting edema), erythema. Absent: normal inspection (There is a diffuse erythematous, scaly rash with overlying blackwood flaky crusting. There is a grade 1 ulceration present on anterior aspect of leg extending onto anterior foot. Patient has no sensation on left leg but states this is chronic. Dorsalis pedis pulse is present but faint.), tenderness Foot/Toe exam: Absent: full ROM, tenderness Neurovascular tendon exam: Present: sensory deficit Right Knee exam: Absent: normal inspection (There is a right below the knee amputation with prosthetic leg present) Course Vital Signs 09/04/23 09/04/23 09/04/23 15:40 17:09 19:57 Temperature 97.6 F Pulse Rate 69 62 68 Respiratory 18 18 17 Rate Blood Pressure 172/77 173/73 191/77 O2 Sat by Pulse 98 100 99 Oximetry Medical Decision Making - Medical Decision Making Was pt. sent in by a medical professional or institution (, [facility], BOILER OPERATOR, urgent care, hospital, or jail...) When possible be specific @ -No Did you speak to anyone other than the patient for history (EMS, parent, family, police, friend...)? What history was obtained from this source @ -No Did you review nursing and triage notes (agree or disagree)? Why? @ -I reviewed and agree with nursing and triage notes Were old charts reviewed (outside hosp., previous admission, EMS record, old EKG, old radiological studies, urgent care reports/EKG's, jail records)? Report findings @ -No old charts were reviewed Differential Diagnosis (chest pain, altered mental status, abdominal pain women, abdominal pain men, vaginal bleeding, weakness, fever, dyspnea, syncope, headache, dizziness, GI bleed, back pain, seizure, CVA, palpatations, mental health, musculoskeletal)? @ -Cellulitis, DVT, fracture, sepsis, diabetic ulceration EKG interpreted by me (3pts min.). @ -None X-rays interpreted by me (1pt min.). @ -X-ray revealed prominent generalized subcutaneous soft tissue edema, however no acute abnormality CT interpreted by me (1pt min.). @ -None done U/S interpreted by me (1pt. min.). @ -Ultrasound-unable to visualize CFV Veins, however no DVT seen What testing was considered but not performed or refused? (CT, X-rays, U/S, labs)? Why? @ -None What meds were considered but not given or refused? Why? @ -None Did you discuss the management of the patient with other professionals (professionals i.e. , [facility], BOILER OPERATOR, lab, RT, psych nurse, high school social science teacher, methods specialist engineer, teacher, mechanical engineering officer, rn case management)? Give summary @ -I spoke with Dr. Olivas regarding patient's case and he agrees to accept admission at this time for cellulitis with consultation to infectious disease services Was smoking cessation discussed for >3mins.? @ -No Was critical care preformed (if so, how long)? @ -No Were there social determinants of health that impacted care today? How? (Homelessness, low income, unemployed, alcoholism, drug addiction, transportation, low edu. Level, literacy, decrease access to med. care, alf, rehab)? @ -No Was there de-escalation of care discussed even if they declined (Discuss DNR or withdrawal of care, Hospice)? DNR status @ -No What co-morbidities impacted this encounter? (DM, HTN, Smoking, COPD, CAD, Cancer, CVA, ARF, Chemo, Hep., AIDS, mental health diagnosis, sleep apnea, morbid obesity)? @ -Diabetes mellitus Was patient admitted / discharged? Hospital course, mention meds given and route , prescriptions, significant lab abnormalities, going to OR and other pertinent info. @ -Patient was admitted. Patient was seen and evaluated for rash on left lower leg. Patient is afebrile and nontachycardic. There is diffuse erythema and purulence on the anterior maddox with 2+ pitting edema. Patient has history of right leg amputation in 2019 from cellulitis. Lab work remarkable for white bl ood cell count of 11.2 with left shift, CO2 of 19, creatinine 1.81, and BUN 31. Ultrasound was limited but negative for DVT. X-ray was negative for acute process. I spoke with Dr. Olivas regarding patient's case and he agrees to accept admission at this time for cellulitis with consultation to infectious disease services. Patient was started on vancomycin due to clindamycin and penicillin allergies. Case discussed with my attending Dr. Castillo. Undiagnosed new problem with uncertain prognosis? @ -No Drug Therapy requiring intensive monitoring for toxicity (Heparin, Nitro, Insulin, Cardizem)? @ -No Were any procedures done? @ -No Diagnosis/symptom? @ -Cellulitis of left leg Acute, or Chronic, or Acute on Chronic? @ -Acute Uncomplicated (without systemic symptoms) or Complicated (systemic symptoms)? @ -Uncomplicated Side effects of treatment? @ -No Exacerbation, Progression, or Severe Exacerbation? @ -No Poses a threat to life or bodily function? How? (Chest pain, [place], [place], pneumonia, PE, COPD, DKA, ARF, appy, cholecystitis, CVA, Diverticulitis, Homicidal, Suicidal, threat to staff... and all critical care pts) @ -Yes, cellulitis - Lab Data Result diagrams: 09/04/23 17:00 09/04/23 17:00 Lab Results 09/04/23 09/04/23 09/04/23 Range/Units 17:00 17:00 17:00 WBC 11.2 H (3.8-10.6) k/uL RBC 3.72 L (3.80-5.40) m/uL Hgb 11.0 L (11.4-16.0) gm/dL Hct 33.2 L (34.0-46.0) % MCV 89.4 (80.0-100.0) fL MCH 29.6 (25.0-35.0) pg MCHC 33.1 (31.0-37.0) g/dL RDW 14.5 (11.5-15.5) % Plt Count 182 (150-450) k/uL MPV 8.8 Neutrophils % 84 % Lymphocytes % 7 % Monocytes % 7 % Eosinophils % 1 % Basophils % 0 % Neutrophils # 9.4 H (1.3-7.7) k/uL Lymphocytes # 0.8 L (1.0-4.8) k/uL Monocytes # 0.8 (0-1.0) k/uL Eosinophils # 0.1 (0-0.7) k/uL Basophils # 0.0 (0-0.2) k/uL PT 10.2 (10.0-12.5) sec INR 0.9 (<1.2) APTT 23.4 (22.0-30.0) sec Sodium 140 (137-145) mmol/L Potassium 5.1 (3.5-5.1) mmol/L Chloride 113 H (98-107) mmol/L Carbon Dioxide 19 L (22-30) mmol/L Anion Gap 8 mmol/L BUN 31 H (7-17) mg/dL Creatinine 1.81 H (0.52-1.04) mg/dL Est GFR (CKD-EPI)AfAm 30 (>60 ml/min/1.73 sqM) Est GFR (CKD-EPI)NonAf 26 (>60 ml/min/1.73 sqM) Glucose 100 H (74-99) mg/dL Plasma Lactic Acid Otis (0.7-2.0) mmol/L Calcium 8.9 (8.4-10.2) mg/dL Total Bilirubin 0.4 (0.2-1.3) mg/dL AST 20 (14-36) U/L ALT 14 (4-34) U/L Alkaline Phosphatase 133 H (38-126) U/L C-Reactive Protein <0.5 (<1.0) mg/dL Total Protein 6.6 (6.3-8.2) g/dL Albumin 3.8 (3.5-5.0) g/dL 09/04/23 Range/Units 17:09 WBC (3.8-10.6) k/uL RBC (3.80-5.40) m/uL Hgb (11.4-16.0) gm/dL Hct (34.0-46.0) % MCV (80.0-100.0) fL MCH (25.0-35.0) pg MCHC (31.0-37.0) g/dL RDW (11.5-15.5) % Plt Count (150-450) k/uL MPV Neutrophils % % Lymphocytes % % Monocytes % % Eosinophils % % Basophils % % Neutrophils # (1.3-7.7) k/uL Lymphocytes # (1.0-4.8) k/uL Monocytes # (0-1.0) k/uL Eosinophils # (0-0.7) k/uL Basophils # (0-0.2) k/uL PT (10.0-12.5) sec INR (<1.2) APTT (22.0-30.0) sec Sodium (137-145) mmol/L Potassium (3.5-5.1) mmol/L Chloride (98-107) mmol/L Carbon Dioxide (22-30) mmol/L Anion Gap mmol/L BUN (7-17) mg/dL Creatinine (0.52-1.04) mg/dL Est GFR (CKD-EPI)AfAm (>60 ml/min/1.73 sqM) Est GFR (CKD-EPI)NonAf (>60 ml/min/1.73 sqM) Glucose (74-99) mg/dL Plasma Lactic Acid Otis 1.1 (0.7-2.0) mmol/L Calcium (8.4-10.2) mg/dL Total Bilirubin (0.2-1.3) mg/dL AST (14-36) U/L ALT (4-34) U/L Alkaline Phosphatase (38-126) U/L C-Reactive Protein (<1.0) mg/dL Total Protein (6.3-8.2) g/dL Albumin (3.5-5.0) g/dL Disposition Clinical Impression: Cellulitis of left leg Disposition: ADMITTED IP TO THIS HOSP Referrals: None,Stated [REFERRING] - 1-2 days Time of Disposition: 20:01
[2023-09-04 17:30] LABS: ALT 14 U/L (4-34); AST 20 U/L (14-36); African American GFR (CKD) 30 (>60 ml/min/1.73 sqM); Albumin 3.8 g/dL (3.5-5.0); Alkaline Phosphatase 133 U/L (38-126); Anion Gap 8 mmol/L; Blood Urea Nitrogen 31 mg/dL (7-17); C Reactive Protein <0.5 mg/dL (<1.0); Calcium 8.9 mg/dL (8.4-10.2); Carbon Dioxide 19 mmol/L (22-30); Chloride 113 mmol/L (98-107); Glucose 100 mg/dL (74-99); Non-African American GFR(CKD) 26 (>60 ml/min/1.73 sqM); Potassium 5.1 mmol/L (3.5-5.1); Sodium 140 mmol/L (137-145); Total Bilirubin 0.4 mg/dL (0.2-1.3); Total Protein 6.6 g/dL (6.3-8.2)
[2023-09-04 17:31] LABS: Basophils % (A) 0 %; Eosinophils # (A) 0.1 k/uL (0-0.7); Eosinophils % (A) 1 %; HCT 33.2 % (34.0-46.0); Lymphocytes # (A) 0.8 k/uL (1.0-4.8); Lymphocytes % (A) 7 %; MCH 29.6 pg (25.0-35.0); MCHC 33.1 g/dL (31.0-37.0); MCV 89.4 fL (80.0-100.0); Mean Platelet Volume 8.8; Monocytes # (A) 0.8 k/uL (0-1.0); Monocytes % (A) 7 %; Neutrophils # (A) 9.4 k/uL (1.3-7.7); Neutrophils % (A) 84 %; Platelet Count 182 k/uL (150-450); RBC 3.72 m/uL (3.80-5.40); RDW 14.5 % (11.5-15.5); WBC 11.2 k/uL (3.8-10.6)
[2023-09-04 17:34] LABS: INR 0.9 (<1.2); Partial Thromboplastin Time 23.4 sec (22.0-30.0); Prothrombin Time 10.2 sec (10.0-12.5)
--- NOTE | 2023-09-04 18:05 | US ---
EXAMINATION TYPE: US venous doppler duplex LE LT DATE OF EXAM: 09/04/2023 5:37 PM COMPARISON: NONE CLINICAL INDICATION: Female, 78 years old with history of left leg edema; Patient states left leg swe lling. Patient has wound on left calf. Patient states hx of DVT, unsure of what side. Patient not on blood thinners currently SIDE PERFORMED: Left TECHNIQUE: The lower extremity deep venous system is examined utilizing real time linear array sonog zain with graded compression, doppler sonography and color-flow sonography. VESSELS IMAGED: Common Femoral Vein Deep Femoral Vein Greater Saphenous Vein * Femoral Vein Popliteal Vein Small Saphenous Vein * Proximal Calf Veins (* superficial vessels) Sonography note:Limited examination. Unable to visualize distal CFV and calf veins due to patient b gomez habitus Left Leg: Appears negative for DVT as best visualized today IMPRESSION: Exam is limited. Unable to visualize the lower CFV and calf veins for assessment. No DVT seen in the visualized portions of the left lower extremity.
--- NOTE | 2023-09-04 18:45 | XR ---
EXAMINATION TYPE: XR tibia fibula 2 views LT DATE OF EXAM: 09/04/2023 Comparison: None Clinical History: 78-year-old female left leg edema/erythema Findings: Generalized subcutaneous soft tissue swelling. Moderate to severe degenerative change medial compartm ent of the knee. At least moderate in the patellofemoral compartment. Suspect mild degenerative vicente e at the tibiotalar joint. No acute fracture, subluxation, dislocation. Impression: 1. Prominent generalized subcutaneous soft tissue edema. 2. Tricompartmental osteoarthrosis of the knee, severe in the medial compartment. 3. Mild degenerative change tibiotalar joint. 4. No acute osseous abnormality seen.
[2023-09-04] MEDS ORDERED: NALOXONE 0.4 MG/ML 1 ML VIAL IV PRN (19:57)
[2023-09-04] MEDS ORDERED: VANCOMYCIN IV PER PHARMACY 1 EACH MISC MISCELLANE PRN (20:01)
[2023-09-04] MEDS: hydrALAZINE HCL 20 MG/ML 1 ML VIAL IVP STA (21:18)
[2023-09-04] MEDS: VANCOMYCIN 1,750 MG in SODIUM CHLORIDE 0.9% 500 ML 500 ML IVPB STA (22:00)
[2023-09-05 02:26] LABS: Glucose,Whole Blood 89 mg/dL (70-110)
[2023-09-05 08:30] LABS: African American GFR (CKD) 34 (>60 ml/min/1.73 sqM); Non-African American GFR(CKD) 29 (>60 ml/min/1.73 sqM)
[2023-09-05] MEDS ORDERED: DEXTROSE 50% SYRINGE 50 ML IVP PRN ×2 (11:14)
[2023-09-05 12:13] LABS: Glucose,Whole Blood 140 mg/dL (70-110)
[2023-09-05] MEDS ORDERED: ONDANSETRON 4 MG/2 ML VIAL IVP PRN (12:29)
[2023-09-05] MEDS ORDERED: LACTULOSE 20 GM/30 ML CUP PO PRN (12:29)
[2023-09-05] MEDS ORDERED: ALPRAZolam 0.25 MG TAB PO PRN (12:29)
[2023-09-05] MEDS ORDERED: MELATONIN 3 MG TABLET PO PRN (12:29)
[2023-09-05] MEDS ORDERED: CALCIUM CARBONATE 500 MG CHEWABLE PO PRN (12:29)
[2023-09-05] MEDS ORDERED: INSULIN ASPART (NovoLOG) 100 UNIT/ML VIAL SQ SCH (12:30)
[2023-09-05] MEDS: ATORVASTATIN 40 MG TAB PO SCH (12:51)
[2023-09-05] MEDS: METOPROLOL SUCCINATE (ER) 50 MG TAB.ER.24H PO SCH (12:51)
[2023-09-05] MEDS: ASPIRIN 81 MG PO SCH (12:51)
[2023-09-05] MEDS: INSULIN ASPART (NovoLOG) 100 UNIT/ML VIAL SQ SCH ×2 (12:52→17:42)
[2023-09-05] MEDS: VANCOMYCIN 1,750 MG in SODIUM CHLORIDE 0.9% 500 ML 500 ML IVPB ONE (12:55)
[2023-09-05] MEDS: CEPHALEXIN 500 MG CAP PO SCH (13:02)
[2023-09-05] MEDS: SODIUM CHLORIDE 0.45% 1,000 ML IV SCH (13:03)
[2023-09-05] MEDS: INSULIN DETEMIR (LEVEMIR) 100 UNIT/ML SYR SQ SCH ×2 (13:30→21:40)
[2023-09-05 17:06] LABS: Glucose,Whole Blood 101 mg/dL (70-110)
[2023-09-05 20:27] LABS: Glucose,Whole Blood 154 mg/dL (70-110)
--- NOTE | 2023-09-05 20:44 | P.HPIM ---
History of Present Illness H&P Date: 09/05/23 Chief Complaint: Discoloration dry skin left leg This is a pleasant 78-year-old patient of Dr. Rodriguez. 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 lives at home with her son, Bowen. using a wheelchair. Patient now presents to the ER as the daughter noticed some redness of the left lower extremity below the knee. Patient states she has got chronic changes to the left leg below knee down to the foot that includes dry skin and scaling going on for a long time. Some redness recently. Denies any pain. Has neuropathy. With numbness. Denies any fever and chills. Patient was noted to have abnormal creatinine. Patient states he got a good appetite. No new medications. Fair urine output. Does not remember any prior kidney disease. Review of systems: GEN.: None EYES: None HEENT: None NECK: None RESPIRATORY: None CARDIOVASCULAR: None GASTROINTESTINAL: None GENITOURINARY: None MUSCULOSKELETAL: [Some joint pains. Right below-knee amputation with prosthesis LYMPHATICS: None HEMATOLOGICAL: None PSYCHIATRY: None NEUROLOGICAL: Peripheral neuropathy Social history: Lives with her son Bowen. Does use a wheelchair. Did smoke in the past. POA: Daughters Maria Luisa and Elsy but has not have official documentation Physical examination: VITAL SIGNS: 97.6, 69, 18, 172 x 77, 98% room air upon presentation GENERAL: BMI 38.7, reclining bed awake not in distress. EYES: [Pupils equal. Conjunctiva normal. HEENT: External appearance of nose and ears normal, oral cavity grossly normal. NECK: JVD not raised; masses not palpable. HEART: First and second heart sounds are normal; no edema. LUNGS: Respiratory rate normal; clear to auscultation. ABDOMEN: Soft, nontender, liver spleen not palpable, no masses palpable. PSYCH: Alert and oriented x3; mood and affect nav l. MUSCULOSKELETAL:No Clubbing/cyanosis;muscles-grossly intact. Right below-knee amputation with a prosthesis EXTREMITIES: Right below-knee amputation with prosthesis. Left lower extremity below the knee very dry skin with plaques of dry skin. Some redness surroundin g. No tenderness. NEUROLOGICAL: [Cranial nerves grossly intact; no facial asymmetry, diminished power lower extremity. LYMPHATICS: No lymph nodes palpable in the axilla and neck INVESTIGATIONS, reviewed in the clinical context: Doppler left lower extremity: Negative for DVT September 04: Creatinine 1.66 September 03: White count 11.2 hemoglobin 11 platelets 182 sodium 140 potassium 5.1 BUN 31 creatinine 1.March: Creatinine 1.0 Assessment and plan: -Acute kidney injury. Duration unknown. Patient does not have any specific symptoms. Last known creatinine is from March 2020. Creatinine was 1. Will give IV fluids. Renal ultrasound. Urine output. Need to rule out a chronic component nephrosclerosis/diabetic nephropathy. UA -Acute left lower extremity cellulitis, mild IV cefazolin. Check procalcitonin -Chronic ichthyosis left lower extremity. Discussed with patient daughter. Patient to follow-up with Dr. Blandon- dermatology outpatient. Patient's had a follow-up there before. -Obesity BMI 38.7 Weight loss measures -Diabetes mellitus type 2 chronically on insulin Adjust dose of insulin/cut back -Coronary artery disease per history of stent Aspirin. Lipitor. Toprol-XL -Hyper lipidemia Lipitor 40 mg -Essential hypertension Toprol-XL 150 mg a day -Peripheral arterial disease Aspirin. -Primary osteoarthritis Tylenol as needed -AICD -Severe diabetic peripheral neuropathy, with numbness. -DNR Advance care planning [September 05, 2023] This was discussed with the patient at length. Patient's daughter at the bedside. Patient does not have official paperwork. She wants her daughters Maria Luisa Chin to be the POA. Wants to be a DNR. Patient was advised to wait to get documents for the same. Questions answered. Time spent about 25 minutes Past Medical History Past Medical History: Diabetes Mellitus, Deep Vein Thrombosis (DVT), Hearing Disorder / Deafness, Hyperlipidemia, Myocardial Infarction ([place]), Skin Disorder, Vascular Disorder Additional Past Medical History / Comment(s): PERIPHERAL VASCULAR DISEASE, DVT RT LEG 2012, hernia, hx pancreatitis, bulging disk, arthritis, dry skin, hard of hearing Last Myocardial Infarction Date:: 2006 History of Any Multi-Drug Resistant Organisms: None Reported Past Surgical History: AICD, Cholecystectomy, Heart Catheterization With Stent, Orthopedic Surgery Additional Past Surgical History / Comment(s): amputation small toe rt foot. Past Anesthesia/Blood Transfusion Reactions: No Reported Reaction Date of Last Stent Placement:: 2006 Type of Cardiac Device: AICD Device Placement Date:: 2006 [facility] Past Psychological History: No Psychological Hx Reported Smoking Status: Never smoker Past Alcohol Use History: None Reported Past Drug Use History: None Reported - Past Family History Father Family Medical History: Cancer Medications and Allergies Home Medications Medication Instructions Recorded Confirmed Type Aspirin 81 mg PO DAILY 07/14/13 09/04/23 History Insulin Glargine,Hum.rec.anlog 60 unit SQ HS 11/08/19 09/04/23 History [Lantus Solostar Pen] Atorvastatin [Lipitor] 40 mg PO DAILY 09/04/23 09/04/23 History Insulin Glargine,Hum.rec.anlog 30 units SQ DAILY 09/04/23 09/04/23 History [Lantus Solostar Pen] Insulin Lispro [humaLOG Kwikpen] 7 unit SQ AC-BRKFST 09/04/23 09/04/23 History Insulin Lispro [humaLOG Kwikpen] 14 unit SQ AC-LUNCH 09/04/23 09/04/23 History Insulin Lispro [humaLOG Kwikpen] 24 unit SQ AC-SUPPER 09/04/23 09/04/23 History Metoprolol Succinate (ER) [Toprol 150 mg PO DAILY 09/04/23 09/04/23 History Xl] Allergies Allergy/AdvReac Type Severity Reaction Status Date / Time clindamycin Allergy Rash/Hives Verified 09/04/23 16:33 Iodinated Contrast Media Allergy Rash/Hives Verified 09/04/23 16:33 [Iodinated Contrast Media - IV Dye] Penicillins Allergy Rapid Verified 09/04/23 16:33 Heart Rate & SOB CRANBERRIES Allergy Rash/Hives Uncoded 09/04/23 15:43 Physical Exam Vitals: Vital Signs Temp Pulse Resp BP Pulse Ox 09/05/23 10:48 97.7 F 66 18 145/64 96 09/05/23 04:46 70 18 166/70 94 L 09/05/23 02:00 64 17 172/85 97 09/05/23 01:00 66 17 163/69 96 09/05/23 00:00 66 18 172/75 97 09/04/23 23:30 68 17 174/73 97 09/04/23 23:00 65 17 169/71 98 09/04/23 22:30 66 16 165/69 98 09/04/23 22:00 64 17 180/76 98 09/04/23 21:00 65 17 181/78 99 09/04/23 20:00 64 18 202/85 99 09/04/23 19:57 68 17 191/77 99 09/04/23 17:09 62 18 173/73 100 09/04/23 15:40 97.6 F 69 18 172/77 98 Intake and Output 09/04/23 09/05/23 09/05/23 22:59 06:59 14:59 Other: Weight 108.862 kg Results CBC & Chem 7: 09/04/23 17:00 09/05/23 07:57 Labs: Abnormal Lab Results - Last 24 Hours (Table) 09/04/23 09/04/23 09/05/23 Range/Units 17:00 17:00 07:57 WBC 11.2 H (3.8-10.6) k/uL RBC 3.72 L (3.80-5.40) m/uL Hgb 11.0 L (11.4-16.0) gm/dL Hct 33.2 L (34.0-46.0) % Neutrophils # 9.4 H (1.3-7.7) k/uL Lymphocytes # 0.8 L (1.0-4.8) k/uL Chloride 113 H (98-107) mmol/L Carbon Dioxide 19 L (22-30) mmol/L BUN 31 H (7-17) mg/dL Creatinine 1.81 H 1.66 H (0.52-1.04) mg/dL Glucose 100 H (74-99) mg/dL Alkaline Phosphatase 133 H (38-126) U/L
[2023-09-05] MEDS: SODIUM BICARBONATE TAB 650 MG TAB PO SCH (21:01)
[2023-09-06 03:04] LABS: Appearance,Urine Clear (Clear); Bacteria,Urine Rare /hpf; Bilirubin,Urine Negative (Negative); Blood,Urine Moderate (Negative); Budding Yeast,Urine Occasional /hpf; Color,Urine Colorless; Glucose,Urine (UA) Negative (Negative); Ketones,Urine Negative (Negative); Leukocyte Esterase,Urine Moderate (Negative); Mucus,Urine Rare /hpf; Nitrite,Urine Positive (Negative); Protein,Urine 2+ (Negative); RBC,Urine 2 /hpf (0-5); Specific Gravity,Urine 1.007 (1.001-1.035); Squamous Epithelial Cell,Urine 2 /hpf (0-4); Urobilinogen,Urine <2.0 mg/dL (<2.0); WBC,Urine 23 /hpf (0-5)
[2023-09-06 04:50] LABS: African American GFR (CKD) 33 (>60 ml/min/1.73 sqM); Anion Gap 3 mmol/L; Blood Urea Nitrogen 25 mg/dL (7-17); Calcium 8.4 mg/dL (8.4-10.2); Carbon Dioxide 22 mmol/L (22-30); Chloride 112 mmol/L (98-107); Glucose 106 mg/dL (74-99); Non-African American GFR(CKD) 29 (>60 ml/min/1.73 sqM); Potassium 4.6 mmol/L (3.5-5.1); Sodium 137 mmol/L (137-145)
[2023-09-06 05:57] LABS: Glucose,Whole Blood 117 mg/dL (70-110)
--- NOTE | 2023-09-06 07:26 | P.CONS ---
History of Present Illness - Reason for Consult Consult date: 09/05/23 Left leg cellulitis Requesting physician: Jolene Alfredo - Chief Complaint Left leg swelling and redness x weeks - History of Present Illness Patient is a 78-year-old female past medical history significant for diabetes mellitus, hyperlipidemia [place] DVT and also have a chronic left lower extremity ulcer, patient has been brought into the hospital concerning for left lower extremity edema swelling and some redness which apparently has been getting worse over the last few months patient denies significant pain to the left lower extremity or any foul-smelling drainage however the patient has been complaining having difficulty ambulation because of the left lower extremity with the symptoms the patient has been evaluated on presentation to the hospital patient was afebrile and no fever have been recorded subsequently patient was not hypoxic hypoxemic or tachycardic patient did have white count of 11.2 BUN and creatinine has been mildly elevated liver isms are normal blood cultures which are currently pending patient did have a venous Doppler study left leg with no DVT x-ray of the leg did not show any bony erosion patient was started on oral Keflex infectious disease was consulted for further management of antibiotic therapy Review of Systems Positive point and negatives has been mentioned in the HPI, complete review of systems was performed and all other systems are negative Past Medical History Past Medical History: Diabetes Mellitus, Deep Vein Thrombosis (DVT), Hearing Disorder / Deafness, Hyperlipidemia, Myocardial Infarction ([place]), Skin Disorder, Vascular Disorder Additional Past Medical History / Comment(s): PERIPHERAL VASCULAR DISEASE, DVT RT LEG 2013, hernia, hx pancreatitis, bulging disk, arthritis, dry skin, hard of hearing Last Myocardial Infarction Date:: 2006 History of Any Multi-Drug Resistant Organisms: None Reported Past Surgical History: AICD, Cholecystectomy, Heart Catheterization With Stent, Orthopedic Surgery Additional Past Surgical History / Comment(s): amputation small toe rt foot. Past Anesthesia/Blood Transfusion Reactions: No Reported Reaction Date of Last Stent Placement:: 2006 Type of Cardiac Device: AICD Device Placement Date:: 2006 [facility] Past Psychological History: No Psychological Hx Reported Smoking Status: Never smoker Past Alcohol Use History: None Reported Past Drug Use History: None Reported - Past Family History Father Family Medical History: Cancer Medications and Allergies Home Medications Medication Instructions Recorded Confirmed Type Aspirin 81 mg PO DAILY 07/14/13 09/04/23 History Insulin Glargine,Hum.rec.anlog 60 unit SQ HS 11/08/19 09/04/23 History [Lantus Solostar Pen] Atorvastatin [Lipitor] 40 mg PO DAILY 09/04/23 09/04/23 History Insulin Glargine,Hum.rec.anlog 30 units SQ DAILY 09/04/23 09/04/23 History [Lantus Solostar Pen] Insulin Lispro [humaLOG Kwikpen] 7 unit SQ AC-BRKFST 09/04/23 09/04/23 History Insulin Lispro [humaLOG Kwikpen] 14 unit SQ AC-LUNCH 09/04/23 09/04/23 History Insulin Lispro [humaLOG Kwikpen] 24 unit SQ AC-SUPPER 09/04/23 09/04/23 History Metoprolol Succinate (ER) [Toprol 150 mg PO DAILY 09/04/23 09/04/23 History Xl] Allergies Allergy/AdvReac Type Severity Reaction Status Date / Time clindamycin Allergy Rash/Hives Verified 09/04/23 16:33 Iodinated Contrast Media Allergy Rash/Hives Verified 09/04/23 16:33 [Iodinated Contrast Media - IV Dye] Penicillins Allergy Rapid Verified 09/04/23 16:33 Heart Rate & SOB CRANBERRIES Allergy Rash/Hives Uncoded 09/04/23 15:43 Physical Exam Vitals: Vital Signs Temp Pulse Resp BP Pulse Ox 09/05/23 10:48 97.7 F 66 18 145/64 96 09/05/23 04:46 70 18 166/70 94 L 09/05/23 02:00 64 17 172/85 97 09/05/23 01:00 66 17 163/69 96 09/05/23 00:00 66 18 172/75 97 09/04/23 23:30 68 17 174/73 97 09/04/23 23:00 65 17 169/71 98 09/04/23 22:30 66 16 165/69 98 09/04/23 22:00 64 17 180/76 98 09/04/23 21:00 65 17 181/78 99 09/04/23 20:00 64 18 202/85 99 09/04/23 19:57 68 17 191/77 99 09/04/23 17:09 62 18 173/73 100 09/04/23 15:40 97.6 F 69 18 172/77 98 Intake and Output 09/04/23 09/05/23 09/05/23 22:59 06:59 14:59 Other: Weight 108.862 kg GENERAL DESCRIPTION: Elderly female lying in bed, no distress. No tachypnea or accessory muscle of respiration use. HEENT: Shows Pallor , no scleral icterus. Oral mucous membrane is dry. No pharyngeal erythema or thrush NECK: Trachea central, no thyromegaly. LUNGS: Unlabored breathing. Clear to auscultation anteriorly. No wheeze or crackle. HEART: S1, S2, regular rate and rhythm. No loud murmur ABDOMEN: Soft, no tenderness , guarding or rigidity, no organomegaly EXTREMITIES: Left lower extremity with some crusting superficial ulceration and redness SKIN: No rash, no masses palpable. NEUROLOGICAL: The patient is awake, alert, oriented x3, mood and affect normal. Results CBC & Chem 7: 09/04/23 17:00 09/06/23 03:41 Labs: Abnormal Lab Results - Last 24 Hours (Table) 09/04/23 09/04/23 09/05/23 Range/Units 17:00 17:00 07:57 WBC 11.2 H (3.8-10.6) k/uL RBC 3.72 L (3.80-5.40) m/uL Hgb 11.0 L (11.4-16.0) gm/dL Hct 33.2 L (34.0-46.0) % Neutrophils # 9.4 H (1.3-7.7) k/uL Lymphocytes # 0.8 L (1.0-4.8) k/uL Chloride 113 H (98-107) mmol/L Carbon Dioxide 19 L (22-30) mmol/L BUN 31 H (7-17) mg/dL Creatinine 1.81 H 1.66 H (0.52-1.04) mg/dL Glucose 100 H (74-99) mg/dL POC Glucose (mg/dL) (70-110) mg/dL Alkaline Phosphatase 133 H (38-126) U/L 09/05/23 Range/Units 12:11 WBC (3.8-10.6) k/uL RBC (3.80-5.40) m/uL Hgb (11.4-16.0) gm/dL Hct (34.0-46.0) % Neutrophils # (1.3-7.7) k/uL Lymphocytes # (1.0-4.8) k/uL Chloride (98-107) mmol/L Carbon Dioxide (22-30) mmol/L BUN (7-17) mg/dL Creatinine (0.52-1.04) mg/dL Glucose (74-99) mg/dL POC Glucose (mg/dL) 140 H (70-110) mg/dL Alkaline Phosphatase (38-126) U/L Assessment and Plan (1) Leukocytosis Current Visit: Yes Status: Acute Code(s): D72.829 - ELEVATED WHITE BLOOD CELL COUNT, UNSPECIFIED SNOMED Code(s): 981009005 (2) Allergy to multiple antibiotics Current Visit: Yes Status: Acute Code(s): Z88.1 - ALLERGY STATUS TO OTHER ANTIBIOTIC AGENTS SNOMED Code(s): 351048244 (3) Cellulitis of left leg Current Visit: Yes Status: Acute Code(s): L03.116 - CELLULITIS OF LEFT LOWER LIMB SNOMED Code(s): 69001454538384411 Plan: 1patient presented to hospital with a left lower extremity chronic ulceration with associated swelling and redness and some drainage concerning for mild cellulitis in this patient also have mildly elevated white count likely from gram-positive skin nahum 2-patient did have elevated creatinine high risk for nephrotoxicity from certain antibiotics 3-patient with multiple antibiotic ALLERGIES that would limit the number of antibiotic safe to use 4-discontinue Keflex 5-we will start the patient on cefazolin 2 g every 8 hours and see clinical response Question concern answered We will follow on clinical condition and cultures to further adjust medication if needed Thank you for this consultation we will follow the patient along with you Dictation was produced using [employer] dictation software. please excuse any grammatical, word or spelling errors. Time with Patient: Greater than 30
--- NOTE | 2023-09-06 07:36 | US ---
EXAMINATION TYPE: US kidneys/renal and bladder DATE OF EXAM: 09/06/2023 COMPARISON: NONE CLINICAL INDICATION: Female, 78 years old with history of Evaluate for CKD; CKD EXAM MEASUREMENTS: Right Kidney: 10.7 x 4.7 x 4.4 cm Left Kidney: 10.6 x 5.8 x 5.0 cm Technical limitations due to patient's body habitus, large amount of overlying bowel gas, and patie nt's limited mobility Right Kidney: limited evaluation, anechoic area upper pole = 3.9 x 2.9 x 4.0cm Left Kidney: limited evaluation. no evidence of hydronephrosis Bladder: appears wnl Bilateral Jets seen: no No obvious nephrolithiasis. Renal cortex thickness and echogenicity within normal limits IMPRESSION: No hydronephrosis or nephrolithiasis.
[2023-09-06] MEDS: INSULIN ASPART (NovoLOG) 100 UNIT/ML VIAL SQ SCH (08:01)
[2023-09-06 12:32] LABS: Glucose,Whole Blood 184 mg/dL (70-110)
--- NOTE | 2023-09-06 13:05 | P.PN ---
Subjective Progress Note Date: 09/06/23 Principal diagnosis: Reason for follow-up is left lower extremity wound and cellulitis Patient is a 78-year-old female past medical history significant for diabetes mellitus, hyperlipidemia CT DVT and also have a chronic left lower extremity ulcer, patient has been brought into the hospital concerning for left lower extremity edema swelling and some redness which apparently has been getting worse over the last few months, has been diagnosed cellulitis admitted to hospital Doppler was negative for DVT. On today's evaluation that is 09/06/2023, the patient continues to be afebrile, the patient is on room air and breathing comfortably, the Pt denies having any chest pain or cough, the patient denies having any abdominal pain no vomiting or any diarrhea patient denies having any worsening pain to the left lower extremity wound. Still having some drainage Patient did have a creatinine 1.69 procalcitonin 0.12 urine mildly positive blood cultures pending Objective - Vital Signs Vital signs: Vital Signs Temp 98.1 F 09/06/23 07:00 Pulse 66 09/06/23 07:00 Resp 18 09/06/23 07:00 BP 189/80 09/06/23 07:00 Pulse Ox 98 09/06/23 07:00 FiO2 Intake & Output 09/05/23 09/06/23 09/06/23 18:59 06:59 18:59 Intake Total 118 240 Balance 118 240 Weight 108.862 kg Intake: Oral 118 240 Other: Voiding Method Toilet Toilet # Voids 1 - Exam GENERAL DESCRIPTION: An elderly female lying in bed in no distress RESPIRATORY SYSTEM: Unlabored breathing , decreased breath sounds at bases HEART: S1 S2 regular rate and rhythm , ABDOMEN: Soft , no tenderness EXTREMITIES: Left lower extremity with the swelling redness slightly decreased did have a peeling skin and superficial ulceration - Labs CBC & Chem 7: 09/04/23 17:00 09/06/23 03:41 Labs: Abnormal Lab Results - Last 24 Hours (Table) 09/05/23 09/06/23 09/06/23 Range/Units 20:26 02:11 03:41 Chloride (98-107) mmol/L BUN (7-17) mg/dL Creatinine (0.52-1.04) mg/dL Glucose (74-99) mg/dL POC Glucose (mg/dL) 154 H (70-110) mg/dL Procalcitonin 0.12 H (0.02-0.09) ng/mL Urine Protein 2+ H (Negative) Urine Blood Moderate H (Negative) Urine Nitrite Positive H (Negative) Ur Leukocyte Esterase Moderate H (Negative) Urine WBC 23 H (0-5) /hpf Urine WBC Clumps Rare H (None) /hpf Urine Bacteria Rare H (None) /hpf Urine Mucus Rare H (None) /hpf Urine Yeast (Budding) Occasional H (None) /hpf 09/06/23 09/06/23 09/06/23 Range/Units 03:41 05:56 12:31 Chloride 112 H (98-107) mmol/L BUN 25 H (7-17) mg/dL Creatinine 1.69 H (0.52-1.04) mg/dL Glucose 106 H (74-99) mg/dL POC Glucose (mg/dL) 117 H 184 H (70-110) mg/dL Procalcitonin (0.02-0.09) ng/mL Urine Protein (Negative) Urine Blood (Negative) Urine Nitrite (Negative) Ur Leukocyte Esterase (Negative) Urine WBC (0-5) /hpf Urine WBC Clumps (None) /hpf Urine Bacteria (None) /hpf Urine Mucus (None) /hpf Urine Yeast (Budding) (None) /hpf Microbiology - Last 24 Hours (Table) 09/04/23 17:00 Blood Culture - Preliminary Blood 09/04/23 17:00 Blood Culture - Preliminary Blood Assessment and Plan (1) Leukocytosis Current Visit: Yes Status: Acute Code(s): D72.829 - ELEVATED WHITE BLOOD CELL COUNT, UNSPECIFIED SNOMED Code(s): 632320277 (2) Allergy to multiple antibiotics Current Visit: Yes Status: Acute Code(s): Z88.1 - ALLERGY STATUS TO OTHER ANTIBIOTIC AGENTS SNOMED Code(s): 840534023 (3) Cellulitis of left leg Current Visit: Yes Status: Acute Code(s): L03.116 - CELLULITIS OF LEFT LOWER LIMB SNOMED Code(s): 62969559108989185 Plan: 1patient presented to hospital with a left lower extremity chronic ulceration with associated swelling and redness and some drainage concerning for mild cellulitis in this patient also have mildly elevated white count likely from gram-positive skin nahum 2-patient did have elevated creatinine high risk for nephrotoxicity from certain antibiotics 3-patient with multiple antibiotic ALLERGIES that would limit the number of antibiotic safe to use 4-patient to continue with cefazolin 2 g every 8 hours will benefit from regular follow-up at the wound care center as well consult wound care Family the bedside questions were answered Dictation was produced using [employer] dictation software. please excuse any gr ammatical, word or spelling errors. Time with Patient: Less than 30
--- NOTE | 2023-09-06 13:19 | P.PN ---
Progress Note - Text Progress Note Date: 09/06/23 Chief Complaint: Discoloration dry skin left leg This is a pleasant 78-year-old patient of Dr. Rodriguez. 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 lives at home with her son, Bowen. using a wheelchair. Patient now presents to the ER as the daughter noticed some redness of the left lower extremity below the knee. Patient states she has got chronic changes to the left leg below knee down to the foot that includes dry skin and scaling going on for a long time. Some redness recently. Denies any pain. Has neuropathy. With numbness. Denies any fever and chills. Patient was noted to have abnormal creatinine. Patient states he got a good appetite. No new medica tions. Fair urine output. Does not remember any prior kidney disease. September 05: Renal ultrasound shows nonspecific findings. Not good use. Creatinine seems to leveled off. Likely CKD. Diabetic nephropathy. Will get renal consult. Patient's Accu-Cheks are better. Patient has family visiting. On IV cefazolin. Add amlodipine 5 mg nightly for blood pressure Active Medications Alprazolam (Alprazolam 0.25 Mg Tab) 0.25 mg PO Q6HR PRN PRN Reason: Anxiety Aspirin (Aspirin 81 Mg) 81 mg PO DAILY [facility] Last Admin: 09/06/23 08:04 Dose: 81 mg Atorvastatin Calcium (Atorvastatin 40 Mg Tab) 40 mg PO DAILY [facility] Last Admin: 09/06/23 08:04 Dose: 40 mg Calcium Carbonate/Glycine (Calcium Carbonate 500 Mg Chewable) 1,000 mg PO Q4HR PRN PRN Reason: Dyspepsia Dextrose/Water (Dextrose 50% Syringe 50 Ml) 25 ml IVP PER PROTOCOL PRN; Protocol PRN Reason: Hypoglycemia Dextrose/Water (Dextrose 50% Syringe 50 Ml) 50 ml IVP PER PROTOCOL PRN; Protocol PRN Reason: Hypoglycemia Sodium Chloride (Saline 0.45%) 1,000 mls @ 100 mls/hr IV .Q10H [facility] Last Admin: 09/06/23 08:58 Dose: 100 mls/hr Cefazolin Sodium 2 gm/ Sodium (Chloride) 50 mls @ 100 mls/hr IVPB Q12HR [facility]; Protocol Insulin Aspart (Insulin Aspart (Novolog) 100 Unit/Ml Vial) 7 unit SQ AC-BRKFST [facility] Last Admin: 09/06/23 08:01 Dose: Not Given Insulin Aspart (Insulin Aspart (Novolog) 100 Unit/Ml Vial) 8 unit SQ AC-LUNCH [facility] Last Admin: 09/06/23 12:37 Dose: 8 unit Insulin Aspart (Insulin Aspart (Novolog) 100 Unit/Ml Vial) 10 unit SQ AC-SUPPER [facility] Last Admin: 09/05/23 17:42 Dose: Not Given Insulin Detemir (Insulin Detemir (Levemir) 100 Unit/Ml Syr) 30 unit SQ HS [facility] Last Admin: 09/05/23 21:40 Dose: 30 unit Lactulose (Lactulose 20 Gm/30 Ml Cup) 20 gm PO DAILY PRN PRN Reason: Constipation Melatonin (Melatonin 3 Mg Tablet) 3 mg PO HS PRN PRN Reason: Insomnia Metoprolol Succinate (Metoprolol Succinate (Er) 50 Mg Tab.Er.24h) 150 mg PO DAILY [facility] Last Admin: 09/06/23 08:04 Dose: 150 mg Naloxone HCl (Naloxone 0.4 Mg/Ml 1 Ml Vial) 0.2 mg IV Q2M PRN PRN Reason: Opioid Reversal Ondansetron HCl (Ondansetron 4 Mg/2 Ml Vial) 4 mg IVP Q8HR PRN PRN Reason: Nausea And Vomiting Sodium Bicarbonate (Sodium Bicarbonate Tab 650 Mg Tab) 650 mg PO TID [facility] Last Admin: 09/06/23 08:04 Dose: 650 mg Social history: Lives with her son Bowen. Does use a wheelchair. Did smoke in the past. POA: Daughters Maria Luisa and Elsy but has not have official documentation Physical examination: VITAL SIGNS: 98.1, 66, 18, 159 x 66, 98% room air GENERAL: BMI 38.7, reclining bed awake not in distress. EYES: [Pupils equal. Conjunctiva normal. HEENT: External appearance of nose and ears normal, oral cavity grossly normal. NECK: JVD not raised; masses not palpable. HEART: First and second heart sounds are normal; no edema. LUNGS: Respiratory rate normal; clear to auscultation. ABDOMEN: Soft, nontender, liver spleen not palpable, no masses palpable. PSYCH: Alert and oriented x3; mood and affect nav l. MUSCULOSKELETAL:No Clubbing/cyanosis;muscles-grossly intact. Right below-knee amputation with a prosthesis EXTREMITIES: Right below-knee amputation with prosthesis. Left lower extremity below the knee very dry skin with plaques of dry skin. Some redness surrounding. No tenderness. NEUROLOGICAL: [Cranial nerves grossly intact; no facial asymmetry, diminished power lower extremity. INVESTIGATIONS, reviewed in the clinical context: September 05: Potassium 4.6 BUN 25 creatinine 1.69 UA positive for nitrite, leukoesterase, WBC, protein 2+ Doppler left lower extremity: Negative for DVT September 04: Creatinine 1.66 September 03: White count 11.2 hemoglobin 11 platelets 182 sodium 140 potassium 5.1 BUN 31 creatinine 1.March: Creatinine 1.0 Assessment and plan: -Acute kidney injury. Duration unknown. Patient does not have any specific symptoms. Last known creatinine is from March 2020. Creatinine was 1. Will give IV fluids. Renal ultrasound. Urine output. Need to rule out a chronic component nephrosclerosis/diabetic nephropathy. UA -Kidney disease stage III likely diabetic nephropathy Consult nephrology. For outpatient follow-up. -Acute UTI with cystitis IV cefazolin -Acute left lower extremity cellulitis, mild IV cefazolin. Check procalcitonin -Chronic ichthyosis left lower extremity. Discussed with patient daughter. Patient to follow-up with Dr. Blandon- dermatology outpatient. Patient's had a follow-up there before. -Obesity BMI 38.7 Weight loss measures -Diabetes mellitus type 2 chronically on insulin Adjust dose of insulin/cut back -Coronary artery disease per history of stent Aspirin. Lipitor. Toprol-XL -Hyper lipidemia Lipitor 40 mg -Essential hypertension, uncontrolled, associated with CKD Toprol-XL 150 mg a day. Add amlodipine 5 mg nightly -Peripheral arterial disease Aspirin. -Primary osteoarthritis Tylenol as needed -AICD -Severe diabetic peripheral neuropathy, with numbness. -DNR Advance care planning [September 05, 2023] This was discussed with the patient at length. Patient's daughter at the bedside. Patient does not have official paperwork. She wants her daughters Maria Luisa Chin to be the POA. Wants to be a DNR. Patient was advised to wait to get documents for the same. Questions answered. Time spent about 25 minutes Add amlodipine 5 mg nightly for blood pressure. Will DC IV fluids. Follow [facility]-Cheks closely. Aiming for discharge tomorrow. Past Medical History Past Medical History: Diabetes Mellitus, Deep Vein Thrombosis (DVT), Hearing Disorder / Deafness, Hyperlipidemia, Myocardial Infarction ([place]), Skin Disorder, Vascular Disorder Additional Past Medical History / Comment(s): PERIPHERAL VASCULAR DISEASE, DVT RT LEG 2013, hernia, hx pancreatitis, bulging disk, arthritis, dry skin, hard of hearing Last Myocardial Infarction Date:: 2006 History of Any Multi-Drug Resistant Organisms: None Reported Past Surgical History: AICD, Cholecystectomy, Heart Catheterization With Stent, Orthopedic Surgery Additional Past Surgical History / Comment(s): amputation small toe rt foot. Past Anesthesia/Blood Transfusion Reactions: No Reported Reaction Date of Last Stent Placement:: 2006 Type of Cardiac Device: AICD Device Placement Date:: [facility] Past Psychological History: No Psychological Hx Reported Smoking Status: Never smoker Past Alcohol Use History: None Reported Past Drug Use History: None Reported
[2023-09-06 17:29] LABS: Glucose,Whole Blood 178 mg/dL (70-110)
--- NOTE | 2023-09-06 18:51 | P.NPCON ---
History of Present Illness - Reason for Consult Consult date: 09/06/23 - Chief Complaint Leg Swelling - History of Present Illness Patient is a 78-year-old female past medical history significant for diabetes mellitus, hyperlipidemia [place] DVT and also have a chronic left lower extremity ulcer, patient has been brought into the hospital concerning for left lower extremity edema swelling and some redness which apparently has been getting worse over the last few months, has been diagnosed cellulitis admitted to hospital Doppler was negative for DVT. She has long hisotry of type 2 diabetes but was never told she has any kidney issues by her primary. She has had good appetite lately and no issues with urination. She does not take NSAIDs and otherwise feeling well. Vital signs are stable. General: No acute distress. HEENT: Head exam unremarkable. On nasal cannula. Lungs: No rhonchi, wheezes, or rales. Heart: Rate and rhythm are regular. Extremities: No edema present. Review of Systems Constitutional: Reports as per HPI Past Medical History Past Medical History: Diabetes Mellitus, Deep Vein Thrombosis (DVT), Hearing Disorder / Deafness, Hyperlipidemia, Myocardial Infarction ([place]), Skin Disorder, Vascular Disorder Additional Past Medical History / Comment(s): PERIPHERAL VASCULAR DISEASE, DVT RT LEG 2013, hernia, hx pancreatitis, bulging disk, arthritis, dry skin, hard of hearing Last Myocardial Infarction Date:: 2006 History of Any Multi-Drug Resistant Organisms: None Reported Past Surgical History: AICD, Cholecystectomy, Heart Catheterization With Stent, Orthopedic Surgery Additional Past Surgical History / Comment(s): amputation small toe rt foot. Past Anesthesia/Blood Transfusion Reactions: No Reported Reaction Date of Last Stent Placement:: 2006 Type of Cardiac Device: AICD Device Placement Date:: 2006 [facility] Past Psychological History: No Psychological Hx Reported Smoking Status: Never smoker Past Alcohol Use History: None Reported Past Drug Use History: None Reported - Past Family History Father Family Medical History: Cancer Medications and Allergies Home Medications Medication Instructions Recorded Confirmed Type Aspirin 81 mg PO DAILY 07/14/13 09/04/23 History Insulin Glargine,Hum.rec.anlog 60 unit SQ HS 11/08/19 09/04/23 History [Lantus Solostar Pen] Atorvastatin [Lipitor] 40 mg PO DAILY 09/04/23 09/04/23 History Insulin Glargine,Hum.rec.anlog 30 units SQ DAILY 09/04/23 09/04/23 History [Lantus Solostar Pen] Insulin Lispro [humaLOG Kwikpen] 7 unit SQ AC-BRKFST 09/04/23 09/04/23 History Insulin Lispro [humaLOG Kwikpen] 14 unit SQ AC-LUNCH 09/04/23 09/04/23 History Insulin Lispro [humaLOG Kwikpen] 24 unit SQ AC-SUPPER 09/04/23 09/04/23 History Metoprolol Succinate (ER) [Toprol 150 mg PO DAILY 09/04/23 09/04/23 History Xl] Allergies Allergy/AdvReac Type Severity Reaction Status Date / Time clindamycin Allergy Rash/Hives Verified 09/04/23 16:33 Iodinated Contrast Media Allergy Rash/Hives Verified 09/04/23 16:33 [Iodinated Contrast Media - IV Dye] Penicillins Allergy Rapid Verified 09/04/23 16:33 Heart Rate & SOB CRANBERRIES Allergy Rash/Hives Uncoded 09/04/23 15:43 Physical Exam Vitals: Vital Signs Temp Pulse Pulse Resp BP BP Pulse Ox 09/06/23 07:00 98.1 F 66 18 189/80 98 09/06/23 02:00 98.2 F 59 L 16 159/66 97 09/05/23 20:00 98.2 F 53 L 16 137/72 90 L 09/05/23 16:43 98.6 F 72 18 180/83 96 09/05/23 16:23 97.7 F 59 L 16 148/65 95 Intake and Output 09/05/23 09/06/23 09/06/23 22:59 06:59 14:59 Intake Total 118 358 Balance 118 358 Intake: Oral 118 358 Other: Voiding Method Toilet Toilet # Voids 1 Weight 108.862 kg Results - Lab Results Most recent lab results Calcium 8.4 mg/dL (8.4-10.2) 09/06/23 03:41 09/04/23 17:00 09/06/23 03:41 Assessment and Plan Assessment: 1. Non-oliguric FABRICIO, possibly underlying CKD. Presented creatinine 1.8, stable at 1.7 today. UA consistent with UTI. Renal US no hydronephrosis. 2. LE Cellulitis 3. Hypertension 4. Type 2 Diabetes 5. Acute UTI Plan: Continue IVF, if no further improvement likely underlying CKD. Agree with sodium bicarb PO Evaluate for proteinuria once UTI resolved Daily BMP Needs outpatient follow-up upon discharge
[2023-09-06] MEDS: amLODIPine 5 MG TAB PO SCH (20:41)
[2023-09-06 21:04] LABS: Glucose,Whole Blood 165 mg/dL (70-110)
[2023-09-07 05:48] LABS: African American GFR (CKD) 35 (>60 ml/min/1.73 sqM); Anion Gap 7 mmol/L; Blood Urea Nitrogen 22 mg/dL (7-17); Calcium 8.5 mg/dL (8.4-10.2); Carbon Dioxide 19 mmol/L (22-30); Chloride 111 mmol/L (98-107); Glucose 144 mg/dL (74-99); Non-African American GFR(CKD) 30 (>60 ml/min/1.73 sqM); Potassium 4.4 mmol/L (3.5-5.1); Sodium 137 mmol/L (137-145)
[2023-09-07 05:50] LABS: Glucose,Whole Blood 154 mg/dL (70-110)
[2023-09-07 12:09] LABS: Glucose,Whole Blood 162 mg/dL (70-110)
--- NOTE | 2023-09-07 13:10 | P.PN ---
Subjective Progress Note Date: 09/07/23 Principal diagnosis: Reason for follow-up is left lower extremity wound and cellulitis Patient is a 78-year-old female past medical history significant for diabetes mellitus, hyperlipidemia [place] DVT and also have a chronic left lower extremity ulcer, patient has been brought into the hospital concerning for left lower extremity edema swelling and some redness which apparently has been getting worse over the last few months, has been diagnosed cellulitis admitted to hospital Doppler was negative for DVT. On today's evaluation that is 09/07/2023, Patient is afebrile patient is currently on room air and denies having any shortness of breath, the patient denies any chest pain or cough, the patient denies any nausea vomiting did not have any abdominal pain and no diarrhea patient denies any worsening pain to the left lower extremity wound redness improved. Patient creatinine is down to 1.61 blood culture negative so far Objective - Vital Signs Vital signs: Vital Signs Temp 97.7 F 09/07/23 07:11 Pulse 64 09/07/23 07:11 Resp 16 09/07/23 07:11 BP 182/82 09/07/23 07:11 Pulse Ox 96 09/07/23 07:11 FiO2 Intake & Output 09/06/23 09/07/23 09/07/23 18:59 06:59 18:59 Intake Total 598 Output Total 250 Balance 348 Intake: Oral 598 Output: Urine 250 Other: Voiding Method Toilet Toilet Toilet # Voids 1 1 - Exam GENERAL DESCRIPTION: An elderly female lying in bed in no distress RESPIRATORY SYSTEM: Unlabored breathing , decreased breath sounds at bases HEART: S1 S2 regular rate and rhythm , ABDOMEN: Soft , no tenderness EXTREMITIES: Left lower extremity with the swelling redness slightly decreased did have a peeling skin and superficial ulceration - Labs CBC & Chem 7: 09/04/23 17:00 09/07/23 04:39 Labs: Abnormal Lab Results - Last 24 Hours (Table) 09/06/23 09/06/23 09/06/23 Range/Units 12:31 17:28 21:04 Chloride (98-107) mmol/L Carbon Dioxide (22-30) mmol/L BUN (7-17) mg/dL Creatinine (0.52-1.04) mg/dL Glucose (74-99) mg/dL POC Glucose (mg/dL) 184 H 178 H 165 H (70-110) mg/dL 09/07/23 09/07/23 Range/Units 04:39 05:48 Chloride 111 H (98-107) mmol/L Carbon Dioxide 19 L (22-30) mmol/L BUN 22 H (7-17) mg/dL Creatinine 1.61 H (0.52-1.04) mg/dL Glucose 144 H (74-99) mg/dL POC Glucose (mg/dL) 154 H (70-110) mg/dL Microbiology - Last 24 Hours (Table) 09/04/23 17:00 Blood Culture - Preliminary Blood 09/04/23 17:00 Blood Culture - Preliminary Blood Assessment and Plan (1) Leukocytosis Current Visit: Yes Status: Acute Code(s): D72.829 - ELEVATED WHITE BLOOD CELL COUNT, UNSPECIFIED SNOMED Code(s): 262068650 (2) Allergy to multiple antibiotics Current Visit: Yes Status: Acute Code(s): Z88.1 - ALLERGY STATUS TO OTHER ANTIBIOTIC AGENTS SNOMED Code(s): 944737972 (3) Cellulitis of left leg Current Visit: Yes Status: Acute Code(s): L03.116 - CELLULITIS OF LEFT LOWER LIMB SNOMED Code(s): 53454279564735267 Plan: 1patient presented to hospital with a left lower extremity chronic ulceration with associated swelling and redness and some drainage concerning for mild cellulitis in this patient also have mildly elevated white count likely from g tiburcio-positive skin nahum 2-patient did have elevated creatinine high risk for nephrotoxicity from certain antibiotics 3-patient with multiple antibiotic ALLERGIES that would limit the number of antibiotic safe to use 4-patient to continue with cefazolin will discuss with the nurse staff to apply moisturizing cream to the dry scaly skin in Elbert wrap plan is for oral antibiotics on discharge Dictation was produced using [employer] dictation software. please excuse any grammatical, word or spelling errors. Time with Patient: Less than 30
--- NOTE | 2023-09-07 13:58 | P.PN ---
Subjective patient is seen for follow-up for acute kidney injury. Renal function has improved with serum creatinine staying at about 1.6 mg/dL. It was 1.8 on initial admission and serum creatinine was 1.0 on 03/16/2020. Blood pressure has been high this admission. Patient has been started on amlodipine. C/o abdominal discomfort with sodium bicarb Objective - Vital Signs Vital signs: Vital Signs Temp 97.8 F 09/07/23 11:24 Pulse 64 09/07/23 11:24 Resp 16 09/07/23 11:24 BP 162/72 09/07/23 13:13 Pulse Ox 95 09/07/23 11:24 FiO2 Intake & Output 09/06/23 09/07/23 09/07/23 18:59 06:59 18:59 Intake Total 598 Output Total 250 Balance 348 Intake: Oral 598 Output: Urine 250 Other: Voiding Method Toilet Toilet Toilet # Voids 1 1 - Exam patient is awake, comfortable, alert oriented 3. No acute distress. Examination of the heart S1 and S2 Examination of the lungs bilateral breath sounds are heard Abdomen is soft nontender Examination of lower extremities shows right BKA, chronic skin changes with significant skin plaques from psoriasis noted in the left leg. ACCOUNT SERVICE REPRESENTATIVE exam grossly intact - Labs CBC & Chem 7: 09/04/23 17:00 09/07/23 04:39 Labs: Abnormal Lab Results - Last 24 Hours (Table) 09/06/23 09/06/23 09/07/23 Range/Units 17:28 21:04 04:39 Chloride 111 H (98-107) mmol/L Carbon Dioxide 19 L (22-30) mmol/L BUN 22 H (7-17) mg/dL Creatinine 1.61 H (0.52-1.04) mg/dL Glucose 144 H (74-99) mg/dL POC Glucose (mg/dL) 178 H 165 H (70-110) mg/dL 09/07/23 09/07/23 Range/Units 05:48 12:07 Chloride (98-107) mmol/L Carbon Dioxide (22-30) mmol/L BUN (7-17) mg/dL Creatinine (0.52-1.04) mg/dL Glucose (74-99) mg/dL POC Glucose (mg/dL) 154 H 162 H (70-110) mg/dL Microbiology - Last 24 Hours (Table) 09/04/23 17:00 Blood Culture - Preliminary Blood 09/04/23 17:00 Blood Culture - Preliminary Blood Assessment and Plan Assessment: 1. Acute kidney injury, most likely ATN, nonoliguric and improved since admission. No evidence of obstruction on ultrasound. UA suggestive of UTI. 2. Non-gap metabolic acidosis secondary to acute kidney injury, maintained on oral sodium bicarb 3. Left lower extremity cellulitismaintained on cefazolin 4. Hypertension currently uncontrolled started on amlodipine and maintained on Toprol. Plan: decrease sodium bicarb to once a day Add hydralazine. Patient will likely need diuretics as well. Repeat labs in a.m.
--- NOTE | 2023-09-07 15:43 | P.PN ---
Progress Note - Text Progress Note Date: 09/07/23 Chief Complaint: Discoloration dry skin left leg This is a pleasant 78-year-old patient of Dr. Rodriguez. 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 lives at home with her son, Bowen. using a wheelchair. Patient now presents to the ER as the daughter noticed some redness of the left lower extremity below the knee. Patient states she has got chronic changes to the left leg below knee down to the foot that includes dry skin and scaling going on for a long time. Some redness recently. Denies any pain. Has neuropathy. With numbness. Denies any fever and chills. Patient was noted to have abnormal creatinine. Patient states he got a good appetite. No new medica tions. Fair urine output. Does not remember any prior kidney disease. September 05: Renal ultrasound shows nonspecific findings. Not good use. Creatinine seems to leveled off. Likely CKD. Diabetic nephropathy. Will get renal consult. Patient's Accu-Cheks are better. Patient has family visiting. On IV cefazolin. Add amlodipine 5 mg nightly for blood pressure September 06: Patient otherwise comfortable. Blood pressure running higher side. Increase amlodipine to 10 mg nightly. Will increase p.m. dose of Levemir to 36 units. Hopefully patient can be discharged tomorrow. Active Medications Alprazolam (Alprazolam 0.25 Mg Tab) 0.25 mg PO Q6HR PRN PRN Reason: Anxiety Amlodipine Besylate (Amlodipine 10 Mg Tab) 10 mg PO HS [facility] Aspirin (Aspirin 81 Mg) 81 mg PO DAILY [facility] Last Admin: 09/07/23 08:03 Dose: 81 mg Atorvastatin Calcium (Atorvastatin 40 Mg Tab) 40 mg PO DAILY [facility] Last Admin: 09/07/23 08:02 Dose: 40 mg Calcium Carbonate/Glycine (Calcium Carbonate 500 Mg Chewable) 1,000 mg PO Q4HR PRN PRN Reason: Dyspepsia Dextrose/Water (Dextrose 50% Syringe 50 Ml) 25 ml IVP PER PROTOCOL PRN; Protocol PRN Reason: Hypoglycemia Dextrose/Water (Dextrose 50% Syringe 50 Ml) 50 ml IVP PER PROTOCOL PRN; Protocol PRN Reason: Hypoglycemia Cefazolin Sodium 2 gm/ Sodium (Chloride) 50 mls @ 100 mls/hr IVPB Q12HR [facility]; Protocol Last Admin: 09/07/23 08:02 Dose: 100 mls/hr Insulin Aspart (Insulin Aspart (Novolog) 100 Unit/Ml Vial) 10 unit SQ AC-SUPPER [facility] Last Admin: 09/06/23 17:47 Dose: 10 unit Insulin Aspart (Insulin Aspart (Novolog) 100 Unit/Ml Vial) 10 unit SQ AC-BRKFST [facility] Insulin Aspart (Insulin Aspart (Novolog) 100 Unit/Ml Vial) 10 unit SQ AC-LUNCH LICO Insulin Detemir (Insulin Detemir (Levemir) 100 Unit/Ml Syr) 36 unit SQ HS [facility] Lactulose (Lactulose 20 Gm/30 Ml Cup) 20 gm PO DAILY PRN PRN Reason: Constipation Melatonin (Melatonin 3 Mg Tablet) 3 mg PO HS PRN PRN Reason: Insomnia Metoprolol Succinate (Metoprolol Succinate (Er) 50 Mg Tab.Er.24h) 150 mg PO DAILY [facility] Last Admin: 09/07/23 08:02 Dose: 150 mg Naloxone HCl (Naloxone 0.4 Mg/Ml 1 Ml Vial) 0.2 mg IV Q2M PRN PRN Reason: Opioid Reversal Ondansetron HCl (Ondansetron 4 Mg/2 Ml Vial) 4 mg IVP Q8HR PRN PRN Reason: Nausea And Vomiting Sodium Bicarbonate (Sodium Bicarbonate Tab 650 Mg Tab) 650 mg PO TID [facility] Last Admin: 09/07/23 08:02 Dose: 650 mg Social history: Lives with her son Bowen. Does use a wheelchair. Did smoke in the past. POA: Daughters Maria Luisa and Elsy but has not have official documentation Physical examination: VITAL SIGNS: 97.8, 64, 16, 162 x 72, 95% room air GENERAL: Comfortable EYES: [Pupils equal. Conjunctiva normal. HEENT: External appearance of nose and ears normal, oral cavity grossly normal. NECK: JVD not raised; masses not palpable. HEART: First and second heart sounds are normal; no edema. LUNGS: Respiratory rate normal; clear to auscultation. ABDOMEN: Soft, nontender, liver spleen not palpable, no masses palpable. PSYCH: Alert and oriented x3; mood and affect nav l. MUSCULOSKELETAL:No Clubbing/cyanosis;muscles-grossly intact. Right below-knee amputation with a prosthesis EXTREMITIES: Right below-knee amputation with prosthesis. Left lower extremity below the knee very dry skin with plaques of dry skin. Some redness surrounding. No tenderness. NEUROLOGICAL: [Cranial nerves grossly intact; no facial asymmetry, diminished power lower extremity. INVESTIGATIONS, reviewed in the clinical context: Renal ultrasound: Limited evaluation renal cortical thickness reported to be normal limits Procalcitonin 0.12 September 06: Potassium 4.4 BUN 22 creatinine 1.61 bicarb 19 September 05: Potassium 4.6 BUN 25 creatinine 1.69 UA positive for nitrite, leukoesterase, WBC, protein 2+ Doppler left lower extremity: Negative for DVT September 04: Creatinine 1.66 September 03: White count 11.2 hemoglobin 11 platelets 182 sodium 140 potassium 5.1 BUN 31 creatinine 1.March: Creatinine 1.0 Assessment and plan: -Acute kidney injury. Duration unknown. Patient does not have any specific symptoms. Last known creatinine is from March 2020. Creatinine was 1. UA showed proteinuria -Kidney disease stage III likely diabetic nephropathy Nephrology following -Acute UTI with cystitis IV cefazolin -Acute left lower extremity cellulitis, mild IV cefazolin. Check procalcitonin -Chronic ichthyosis left lower extremity. Discussed with patient daughter. Patient to follow-up with Dr. Blandon- dermatology outpatient. Patient's had a follow-up there before. -Obesity BMI 38.7 Weight loss measures -Diabetes mellitus type 2 chronically on insulin Adjust dose of insulin/cut back -Coronary artery disease per history of stent Aspirin. Lipitor. Toprol-XL -Hyper lipidemia Lipitor 40 mg -Essential hypertension, uncontrolled, associated with CKD Toprol-XL 150 mg a day. Increase amlodipine to 10 mg nightly -Peripheral arterial disease Aspirin. -Primary osteoarthritis Tylenol as needed -AICD -Severe diabetic peripheral neuropathy, with numbness. -DNR Advance care planning [September 05, 2023] This was discussed with the patient at length. Patient's daughter at the bedside. Patient does not have official paperwork. She wants her daughters Maria Luisa Chin to be the POA. Wants to be a DNR. Patient was advised to wait to get documents for the same. Questions answered. Time spent about 25 minutes Increase amlodipine to 10 mg nightly. Increase dose of Levemir. NovoLog. Hoping for discharge tomorrow Past Medical History Past Medical History: Diabetes Mellitus, Deep Vein Thrombosis (DVT), Hearing Disorder / Deafness, Hyperlipidemia, Myocardial Infarction ([place]), Skin Disorder, Vascular Disorder Additional Past Medical History / Comment(s): PERIPHERAL VASCULAR DISEASE, DVT RT LEG 2013, hernia, hx pancreatitis, bulging disk, arthritis, dry skin, hard of hearing Last Myocardial Infarction Date:: 2006 History of Any Multi-Drug Resistant Organisms: None Reported Past Surgical History: AICD, Cholecystectomy, Heart Catheterization With Stent, Orthopedic Surgery Additional Past Surgical History / Comment(s): amputation small toe rt foot. Past Anesthesia/Blood Transfusion Reactions: No Reported Reaction Date of Last Stent Placement:: 2006 Type of Cardiac Device: AICD Device Placement Date:: 2006 [facility] Past Psychological History: No Psychological Hx Reported Smoking Status: Never smoker Past Alcohol Use History: None Reported Past Drug Use History: None Reported
[2023-09-07 17:21] LABS: Glucose,Whole Blood 215 mg/dL (70-110)
[2023-09-07 20:28] LABS: Glucose,Whole Blood 179 mg/dL (70-110)
[2023-09-07] MEDS: amLODIPine 10 MG TAB PO SCH (20:58)
[2023-09-07] MEDS: INSULIN DETEMIR (LEVEMIR) 100 UNIT/ML SYR SQ SCH (20:59)
[2023-09-08 02:22] VITALS: RESP 16
[2023-09-08 05:33] LABS: Glucose,Whole Blood 158 mg/dL (70-110)
[2023-09-08] MEDS: INSULIN ASPART (NovoLOG) 100 UNIT/ML VIAL SQ SCH ×2 (08:23→12:55)
[2023-09-08 08:27] VITALS: PULSE 60
[2023-09-08 11:50] LABS: African American GFR (CKD) 37 (>60 ml/min/1.73 sqM); Anion Gap 5 mmol/L; Blood Urea Nitrogen 24 mg/dL (7-17); Calcium 8.4 mg/dL (8.4-10.2); Carbon Dioxide 22 mmol/L (22-30); Chloride 110 mmol/L (98-107); Glucose 144 mg/dL (74-99); Non-African American GFR(CKD) 32 (>60 ml/min/1.73 sqM); Sodium 137 mmol/L (137-145)
[2023-09-08 12:15] LABS: Glucose,Whole Blood 158 mg/dL (70-110)
--- NOTE | 2023-09-08 13:08 | P.PN ---
Subjective patient is seen for follow-up for acute kidney injury. Renal function has improved with serum creatinine at 1.5 mg/dL. It was 1.8 on initial admission and serum creatinine was 1.0 on 03/16/2020. Blood pressure has been high this admission. Patient has been started on amlodipine. Objective - Vital Signs Vital signs: Vital Signs Temp 98.2 F 09/08/23 07:00 Pulse 60 09/08/23 07:00 Resp 16 09/08/23 02:22 BP 152/74 09/08/23 07:00 Pulse Ox 95 09/08/23 07:00 FiO2 Intake & Output 09/07/23 09/08/23 09/08/23 18:59 06:59 18:59 Intake Total 240 Balance 240 Intake: Oral 240 Other: Voiding Method Toilet Toilet Toilet # Voids 1 - Exam patient is awake, comfortable, alert oriented 3. No acute distress. Examination of the heart S1 and S2 Examination of the lungs bilateral breath sounds are heard Abdomen is soft nontender Examination of lower extremities shows right BKA, chronic skin changes with significant skin plaques from psoriasis noted in the left leg. NUB CARD TENDER exam grossly intact - Labs CBC & Chem 7: 09/04/23 17:00 09/08/23 11:23 Labs: Abnormal Lab Results - Last 24 Hours (Table) 09/07/23 09/07/23 09/08/23 Range/Units 17:19 20:26 05:29 Chloride (98-107) mmol/L BUN (7-17) mg/dL Creatinine (0.52-1.04) mg/dL Glucose (74-99) mg/dL POC Glucose (mg/dL) 215 H 179 H 158 H (70-110) mg/dL 09/08/23 09/08/23 Range/Units 11:23 12:13 Chloride 110 H (98-107) mmol/L BUN 24 H (7-17) mg/dL Creatinine 1.53 H (0.52-1.04) mg/dL Glucose 144 H (74-99) mg/dL POC Glucose (mg/dL) 158 H (70-110) mg/dL Microbiology - Last 24 Hours (Table) 09/04/23 17:00 Blood Culture - Preliminary Blood 09/04/23 17:00 Blood Culture - Preliminary Blood Assessment and Plan Assessment: 1. Acute kidney injury, most likely ATN, nonoliguric and improved since ad mission. No evidence of obstruction on ultrasound. UA suggestive of UTI. 2. Non-gap metabolic acidosis secondary to acute kidney injury, maintained on oral sodium bicarb 3. Left lower extremity cellulitismaintained on cefazolin 4. Hypertension currently uncontrolled started on amlodipine and maintained on Toprol. Plan: decrease sodium bicarb to once a day Add hydralazine if blood pressure remains elevated. Patient will likely need diuretics as well down the road.
--- NOTE | 2023-09-08 13:20 | P.PN ---
Subjective Progress Note Date: 09/08/23 Principal diagnosis: Reason for follow-up is left lower extremity wound and cellulitis Patient is a 78-year-old female past medical history significant for diabetes mellitus, hyperlipidemia [place] DVT and also have a chronic left lower extremity ulcer, patient has been brought into the hospital concerning for left lower extremity edema swelling and some redness which apparently has been getting worse over the last few months, has been diagnosed cellulitis admitted to hospital Doppler was negative for DVT. On today's evaluation that is 09/08/2023, patient has been afebrile, patient is breathing comfortably and is currently on room air, patient denies having any significant cough no chest pain shortness of breath, patient denies nausea vomiting or diarrhea and no abdominal pain and denies any pain to the left lower extremity mention feeling better. Patient creatinine is down to 1.53 blood culture has been negative Objective - Vital Signs Vital signs: Vital Signs Temp 98.2 F 09/08/23 07:00 Pulse 60 09/08/23 07:00 Resp 16 09/08/23 02:22 BP 152/74 09/08/23 07:00 Pulse Ox 95 09/08/23 07:00 FiO2 Intake & Output 09/07/23 09/08/23 09/08/23 18:59 06:59 18:59 Intake Total 240 Balance 240 Intake: Oral 240 Other: Voiding Method Toilet Toilet Toilet # Voids 1 - Exam GENERAL DESCRIPTION: An elderly female lying in bed in no distress RESPIRATORY SYSTEM: Unlabored breathing , decreased breath sounds at bases HEART: S1 S2 regular rate and rhythm , ABDOMEN: Soft , no tenderness EXTREMITIES: Left lower extremity with the swelling redness slightly decreased did have a peeling skin and superficial ulceration - Labs CBC & Chem 7: 09/04/23 17:00 09/08/23 11:23 Labs: Abnormal Lab Results - Last 24 Hours (Table) 09/07/23 09/07/23 09/08/23 Range/Units 17:19 20:26 05:29 Chloride (98-107) mmol/L BUN (7-17) mg/dL Creatinine (0.52-1.04) mg/dL Glucose (74-99) mg/dL POC Glucose (mg/dL) 215 H 179 H 158 H (70-110) mg/dL 09/08/23 09/08/23 Range/Units 11:23 12:13 Chloride 110 H (98-107) mmol/L BUN 24 H (7-17) mg/dL Creatinine 1.53 H (0.52-1.04) mg/dL Glucose 144 H (74-99) mg/dL POC Glucose (mg/dL) 158 H (70-110) mg/dL Microbiology - Last 24 Hours (Table) 09/04/23 17:00 Blood Culture - Preliminary Blood 09/04/23 17:00 Blood Culture - Preliminary Blood Assessment and Plan (1) Leukocytosis Current Visit: Yes Status: Acute Code(s): D72.829 - ELEVATED WHITE BLOOD CELL COUNT, UNSPECIFIED SNOMED Code(s): 604549472 (2) Allergy to multiple antibiotics Current Visit: Yes Status: Acute Code(s): Z88.1 - ALLERGY STATUS TO OTHER ANTIBIOTIC AGENTS SNOMED Code(s): 079486069 (3) Cellulitis of left leg Current Visit: Yes Status: Acute Code(s): L03.116 - CELLULITIS OF LEFT LOWER LIMB SNOMED Code(s): 63843324731536366 Plan: 1patient presented to hospital with a left lower extremity chronic ulceration with associated swelling and redness and some drainage concerning for mild cellulitis in this patient also have mildly elevated white count likely from gram-positive skin nahum 2-patient did have elevated creatinine high risk for nephrotoxicity from certain antibiotics 3-patient with multiple antibiotic ALLERGIES that would limit the number of antibiotic safe to use 4-discussed with the patient nurse staff to apply moisturizing cream to the dry scaly skin in Elbert wrap that can be changed every other day for now continue with cefazolin finishing therapy with oral Keflex Dictation was produced using [employer] dictation software. please excuse any grammatical, word or spelling errors. Time with Patient: Less than 30
[2023-09-08 14:25] VITALS: BP 153/69; TEMP 98.5
--- NOTE | 2023-09-08 17:18 | P.DS ---
Providers Date of admission: 09/04/23 21:26 Expected date of discharge: 09/08/23 Attending physician: Yao Olivas Consults: 09/04/23 19:57 Consult Physician Urgent Consulting Provider: Cici Farris Consult Reason/Comments: left leg cellulitis Do you want consulting provider notified?: Yes 09/06/23 09:49 Consult Physician Routine Consulting Provider: Derrick Barclay Consult Reason/Comments: ckd Do you want consulting provider notified?: Yes Primary care physician: Richard [facility] Course: Chief Complaint: Discoloration dry skin left leg This is a pleasant 78-year-old patient of Dr. Rodriguez. 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 lives at home with her son, Bowen. using a wheelchair. Patient now presents to the ER as the daughter noticed some redness of the left lower extremity below the knee. Patient states she has got chronic changes to the left leg below knee down to the foot that includes dry skin and scaling going on for a long time. Some redness recently. Denies any pain. Has neuropathy. With numbness. Denies any fever and chills. Patient was noted to have abnormal creatinine. Patient states he got a good appetite. No new medications. Fair urine output. Does not remember any prior kidney disease. September 05: Renal ultrasound shows nonspecific findings. Not good use. Creatinine seems to leveled off. Likely CKD. Diabetic nephropathy. Will get renal consult. Patient's Accu-Cheks are better. Patient has family visiting. On IV cefazolin. Add amlodipine 5 mg nightly for blood pressure September 06: Patient otherwise comfortable. Blood pressure running higher side. Increase amlodipine to 10 mg nightly. Will increase p.m. dose of Levemir to 36 units. Hopefully patient can be discharged tomorrow. September 07: Patient blood pressure better controlled. Insulin dose adjusted. Patient will follow-up with activities director scouting Dr. Samuels. Also patient to follow-up with Dr. Blandon dermatology for left leg lesion./Cellulitis if any of the left lower extremity was r not significant. Local topical care to continue. Patient wishes to follow-up with home MD-patient to call to make appointment. Number provided. Also follow-up with outpatient nephrology. Discussion and discharge planning more than 35 minutes Social history: Lives with her son Bowen. Does use a wheelchair. Did smoke in the past. POA: Daughters Maria Luisa and Elsy but has not have official documentation Physical examination: VITAL SIGNS: 98.5, 60, 153 x 69, 95% room air GENERAL: Comfortable EYES: [Pupils equal. Conjunctiva normal. HEENT: External appearance of nose and ears normal, oral cavity grossly normal. NECK: JVD not raised; masses not palpable. HEART: First and second heart sounds are normal; no edema. LUNGS: Respiratory rate normal; clear to auscultation. ABDOMEN: Soft, nontender, liver spleen not palpable, no masses palpable. PSYCH: Alert and oriented x3; mood and affect nav l. MUSCULOSKELETAL:No Clubbing/cyanosis;muscles-grossly intact. Right below-knee amputation with a prosthesis EXTREMITIES: Right below-knee amputation with prosthesis. Left lower extremity below the knee very dry skin with plaques of dry skin. Some redness surrounding. No tenderness. NEUROLOGICAL: [Cranial nerves grossly intact; no facial asymmetry, diminished power lower extremity. INVESTIGATIONS, reviewed in the clinical context: September 07: Potassium 4. 24 creatinine 1.53 Renal ultrasound: Limited evaluation renal cortical thickness reported to be normal limits Procalcitonin 0.12 September 06: Potassium 4.4 BUN 22 creatinine 1.61 bicarb 19 September 05: Potassium 4.6 BUN 25 creatinine 1.69 UA positive for nitrite, leukoesterase, WBC, protein 2+ Doppler left lower extremity: Negative for DVT September 04: Creatinine 1.66 September 03: White count 11.2 hemoglobin 11 platelets 182 sodium 140 potassium 5.1 BUN 31 creatinine 1.March: Creatinine 1.0 Assessment and plan: -Acute kidney injury. Duration unknown. Patient does not have any specific symptoms. Last known creatinine is from March 2020. Creatinine was 1. UA showed proteinuria Admission creatinine 1.81. Down to 1.53 -Kidney disease stage III likely diabetic nephropathy Follow outpatient with Dr. Barclay -Acute UTI with cystitis IV cefazolin-completed course -Acute left lower extremity cellulitis, mild IV cefazolin.-Received 5 days of antibiotics -Chronic ichthyosis left lower extremity. Discussed with patient daughter. Patient to follow-up with Dr. Blandon- dermatology outpatient. Patient's had a follow-up there before. -Obesity BMI 38.7 Weight loss measures -Diabetes mellitus type 2 chronically on insulin Lantus 60 units at night. Insulin Humalog 12 units AC 3 times daily with meals Follow-up with Dr. Ender Samuels endocrinology -Coronary artery disease per history of stent Aspirin. Lipitor. Toprol-XL -Hyper lipidemia Lipitor 40 mg -Essential hypertension, associated with CKD Toprol-XL 150 mg a day. amlodipine to 10 mg nightly -Peripheral arterial disease Aspirin. -Primary osteoarthritis Tylenol as needed -AICD -Severe diabetic peripheral neuropathy, with numbness. -DNR Advance care planning [September 05, 2023] This was discussed with the patient at length. Patient's daughter at the bedside. Patient does not have official paperwork. She wants her daughters Maria Luisa Chin to be the POA. Wants to be a DNR. Patient was advised to wait to get documents for the same. Questions answered. Time spent about 25 minutes Disposition: Home Past Medical History Past Medical History: Diabetes Mellitus, Deep Vein Thrombosis (DVT), Hearing Disorder / Deafness, Hyperlipidemia, Myocardial Infarction ([place]), Skin Disorder, Vascular Disorder Additional Past Medical History / Comment(s): PERIPHERAL VASCULAR DISEASE, DVT RT LEG 2012, hernia, hx pancreatitis, bulging disk, arthritis, dry skin, hard of hearing Last Myocardial Infarction Date:: 2006 History of Any Multi-Drug Resistant Organisms: None Reported Past Surgical History: AICD, Cholecystectomy, Heart Catheterization With Stent, Orthopedic Surgery Additional Past Surgical History / Comment(s): amputation small toe rt foot. Past Anesthesia/Blood Transfusion Reactions: No Reported Reaction Date of Last Stent Placement:: 2006 Type of Cardiac Device: AICD Device Placement Date:: 2006 [facility] Past Psychological History: No Psychological Hx Reported Smoking Status: Never smoker Past Alcohol Use History: None Reported Past Drug Use History: None Reported Plan - Discharge Summary Discharge Rx Participant: No New Discharge Prescriptions: New Sodium Bicarbonate Tab 650 mg PO DAILY #30 tab amLODIPine [Norvasc] 10 mg PO HS #30 tab Continue Aspirin 81 mg PO DAILY Atorvastatin [Lipitor] 40 mg PO DAILY Metoprolol Succinate (ER) [Toprol XL] 150 mg PO DAILY Changed Insulin Lispro [humaLOG Kwikpen] 12 unit SQ AC-TID #0 Insulin Glargine,Hum.rec.anlog [Lantus Solostar Pen] 40 units SQ HS #0 Discontinued Insulin Glargine,Hum.rec.anlog [Lantus Solostar Pen] 60 unit SQ HS Insulin Lispro [humaLOG Kwikpen] 7 unit SQ AC-BRKFST Insulin Lispro [humaLOG Kwikpen] 14 unit SQ AC-LUNCH Discharge Medication List Aspirin 81 mg PO DAILY 07/14/13 [History] Atorvastatin [Lipitor] 40 mg PO DAILY 09/04/23 [History] Metoprolol Succinate (ER) [Toprol XL] 150 mg PO DAILY 09/04/23 [History] Insulin Glargine,Hum.rec.anlog [Lantus Solostar Pen] 40 units SQ HS #0 09/08/23 [Rx] Insulin Lispro [humaLOG Kwikpen] 12 unit SQ AC-TID #0 09/08/23 [Rx] Sodium Bicarbonate Tab 650 mg PO DAILY #30 tab 09/08/23 [Rx] amLODIPine [Norvasc] 10 mg PO HS #30 tab 09/08/23 [Rx] Follow up Appointment(s)/Referral(s): Zahida Blandon MD [STAFF PHYSICIAN] - 1 Week Activity/Diet/Wound Care/Special Instructions: pt to call [phone] to set up appointment with Home
[2023-09-09] MEDS ORDERED: SODIUM BICARBONATE TAB 650 MG TAB PO SCH (09:00)
== END 2023-09-08 16:18 | disposition home or self-care (01) ==
LOC: EC 15:39 → 6NMEDSUR 21:26
PROVIDERS: ADMIT Hospitalist; ATTEND Hospitalist
DX: N17.9 Acute kidney failure, unspecified (principal); L03.116 Cellulitis of left lower limb; E11.22 Type 2 diabetes mellitus with diabetic chronic kidney disease; E78.5 Hyperlipidemia, unspecified; E11.42 Type 2 diabetes mellitus with diabetic polyneuropathy; E11.51 Type 2 diabetes mellitus with diabetic peripheral angiopathy without gangrene; N18.31 Chronic kidney disease, stage 3a; I12.9 Hypertensive chronic kidney disease with stage 1 through stage 4 chronic kidney disease, or unspecified chronic kidney disease; N39.0 Urinary tract infection, site not specified; Q80.9 Congenital ichthyosis, unspecified; E66.9 Obesity, unspecified; Z95.5 Presence of coronary angioplasty implant and graft; Z89.511 Acquired absence of right leg below knee; Z88.1 Allergy status to other antibiotic agents; Z88.0 Allergy status to penicillin; Z79.899 Other long term (current) drug therapy; Z79.82 Long term (current) use of aspirin; Z79.4 Long term (current) use of insulin; Z68.38 Body mass index [BMI] 38.0-38.9, adult
CPT/HCPCS: 96365; 96366 ×5; 96375; 99285; 36415; 80053; 80048 ×3; 82565; 83605; 85025; 85610; 85730; 86140; 81001; 87040; 84145; 73590; 93971; 76770; G0378 ×5; J3370; J0360; J0690 ×4

== ENCOUNTER 2023-12-20 18:12 | Emergency (ER) | payer MEDICARE ==
--- NOTE | 2023-12-20 19:00 | ED ---
Recheck HPI - General Source: patient, family Mode of arrival: ambulatory Limitations: no limitations <David Schroeder - Last Filed: 12/20/23 18:58> - History of Present Illness -: hour(s) Returns Today for: Called Because of Abnormal Lab/Test Symptoms Since Prior Visit: no new symptoms Context: called for abnormal lab result Associated Symptoms: none <Tai Maurer - Last Filed: 01/06/24 12:08> - General Stated Complaint: abn labs Time Seen by Provider: 12/20/23 18:27 - History of Present Illness Initial Comments: Quick note: This is a 78-year-old female sent by Dr. Boggs for abnormal lab work. Patient states her lab work revealed elevated potassium levels. Patient endorses associated shortness of breath but otherwise denies chest pain or palpitations. Denies dizziness, visual changes, altered LOC, altered mental status. Patient endorses history of AMI. Endorses having a pacemaker/defibrillator. (David Schroeder) As above, The patient was seen by the garage helper (Dr. Barclay) today as routine follow-up. She had labs drawn and then was called tonight about hyperkalemia. The patient denies any new symptoms. She states she feels at her baseline. (Tai Maurer) - Related Data Home Medications Medication Instructions Recorded Confirmed Aspirin 81 mg PO DAILY 07/14/13 09/04/23 Atorvastatin [Lipitor] 40 mg PO DAILY 09/04/23 09/04/23 Metoprolol Succinate (ER) [Toprol 150 mg PO DAILY 09/04/23 09/04/23 XL] Previous Rx's Medication Instructions Recorded Insulin Glargine,Hum.rec.anlog 40 units SQ HS #0 09/08/23 [Lantus Solostar Pen] Insulin Lispro [humaLOG Kwikpen] 12 unit SQ AC-TID #0 09/08/23 Sodium Bicarbonate Tab 650 mg PO DAILY #30 tab 09/08/23 amLODIPine [Norvasc] 10 mg PO HS #30 tab 09/08/23 Allergies Allergy/AdvReac Type Severity Reaction Status Date / Time clindamycin Allergy Rash/Hives Verified 12/20/23 19:16 Iodinated Contrast Media Allergy Rash/Hives Verified 12/20/23 19:16 [Iodinated Contrast Media - IV Dye] Penicillins Allergy Rapid Verified 12/20/23 19:16 Heart Rate & SOB CRANBERRIES Allergy Rash/Hives Uncoded 12/20/23 19:16 Review of Systems ROS Other: All systems not noted in ROS Statement are negative. <David Schroeder - Last Filed: 12/20/23 18:58> ROS Other: All systems not noted in ROS Statement are negative. Constitutional: Denies: fever, chills, weakness Respiratory: Denies: cough, dyspnea Cardiovascular: Denies: chest pain, palpitations, edema Gastrointestinal: Denies: abdominal pain, nausea, vomiting, diarrhea Genitourinary: Denies: dysuria, frequency Musculoskeletal: Denies: back pain Skin: Denies: rash Neurological: Denies: headache, weakness, numbness, paresthesias <Tai Maurer - Last Filed: 01/06/24 12:08> ROS Statement: Those systems with pertinent positive or pertinent negative responses have been documented in the HPI. Past Medical History Past Medical History: Diabetes Mellitus, Deep Vein Thrombosis (DVT), Hearing Di sorder / Deafness, Hyperlipidemia, Myocardial Infarction ([place]), Skin Disorder, Vascular Disorder Additional Past Medical History / Comment(s): PERIPHERAL VASCULAR DISEASE, DVT RT LEG 2013, hernia, hx pancreatitis, bulging disk, arthritis, dry skin, hard of hearing Last Myocardial Infarction Date:: 2006 History of Any Multi-Drug Resistant Organisms: None Reported Past Surgical History: AICD, Cholecystectomy, Heart Catheterization With Stent, Orthopedic Surgery Additional Past Surgical History / Comment(s): amputation small toe rt foot. Past Anesthesia/Blood Transfusion Reactions: No Reported Reaction Date of Last Stent Placement:: 2006 Type of Cardiac Device: AICD Device Placement Date:: 2006 [facility] Past Psychological History: No Psychological Hx Reported Smoking Status: Never smoker Past Alcohol Use History: None Reported Past Drug Use History: None Reported - Past Family History Father Family Medical History: Cancer <David Schroeder - Last Filed: 12/20/23 18:58> General Exam <David Schroeder - Last Filed: 12/20/23 18:58> General appearance: alert, in no apparent distress Head exam: Present: atraumatic, normocephalic Eye exam: Present: normal appearance. Absent: scleral icterus, conjunctival injection Neck exam: Present: normal inspection Respiratory exam: Present: normal lung sounds bilaterally. Absent: respiratory distress, wheezes, rales, rhonchi, stridor, accessory muscle use Cardiovascular Exam: Present: regular rate, normal rhythm, normal heart sounds. Absent: systolic murmur, diastolic murmur, rubs, gallop GI/Abdominal exam: Present: soft. Absent: distended, tenderness, guarding, rebound, rigid, mass Extremities exam: Present: full ROM, pedal edema (Chronic left lower leg edema), other (Leg amputation with prosthesis). Absent: tenderness Neurological exam: Present: alert Skin exam: Present: warm, dry, intact, normal color. Absent: rash <Tai Maurer - Last Filed: 01/06/24 12:08> - General Exam Comments Initial Comments: Visual Physical Exam Vital signs reviewed General: Well-appearing, nontoxic, no acute distress. Head: Normocephalic, atraumatic Eyes: PERRLA, EOMI ENT: Airway patent Chest: Nonlabored breathing Skin: No visual rash, normal skin tone Neuro: Alert and oriented 3 Musculoskeletal: No gross abnormalities (David Schroeder) Course Vital Signs 12/20/23 12/21/23 19:12 01:03 Temperature 98.2 F 97.0 F L Pulse Rate 71 70 Respiratory 17 18 Rate Blood Pressure 159/85 162/66 O2 Sat by Pulse 96 94 L Oximetry Medical Decision Making <David Schroeder - Last Filed: 12/20/23 18:58> - Lab Data Result diagrams: 12/20/23 21:24 12/20/23 21:24 - EKG Data -: EKG Interpreted by Me EKG shows normal: sinus rhythm, intervals ([place] interval 250 ms, prolonged consistent with first-degree AV block. QRS duration 123 ms, borderline, QTc 446 ms.), QRS complexes (Old anterolateral infarct.) Rate: normal (70 bpm) <Tai Maurer - Last Filed: 01/06/24 12:08> - Medical Decision Making I completed the quick note portion of this chart signed JOHN Dennis (David Schroeder) The patient had chest x-ray that I interpreted as negative for acute infiltrate, pneumothorax, congestive heart failure Was pt. sent in by a medical professional or institution (MARLYN Miranda, MEDICAL BILLING CODER, urgent care, hospital, or usp...) When possible be specific @ -[No] Did you speak to anyone other than the patient for history (EMS, parent, family, police, friend...)? What history was obtained from this source @ -[No] Did you review nursing and triage notes (agree or disagree)? Why? @ -[I reviewed and agree with nursing and triage notes] Were old charts reviewed (outside hosp., previous admission, EMS record, old EKG, old radiological studies, urgent care reports/EKG's, usp records)? Report findings @ -[No old charts were reviewed] Differential Diagnosis (chest pain, altered mental status, abdominal pain women, abdominal pain men, vaginal bleeding, weakness, fever, dyspnea, syncope, headache, dizziness, GI bleed, back pain, seizure, CVA, palpatations, mental health, musculoskeletal)? @ -Differential diagnosis includes hyperkalemia, renal failure, hemolysis of lab specimen, lab error, list not comprehensive EKG interpreted by me (3pts min.). @ -[I interpreted as above X-rays interpreted by me (1pt min.). @ -[Interpreted as above CT interpreted by me (1pt min.). @ -[None done] U/S interpreted by me (1pt. min.). @ -[None done] What testing was considered but not performed or refused? (CT, X-rays, U/S, labs)? Why? @ -[None] What meds were considered but not given or refused? Why? @ -[None] Did you discuss the management of the patient with other professionals (professionals i.e. , PA, MEDICAL BILLING CODER, lab, RT, psych nurse, director of social work, marketing representative, teacher, aoc director intelligence officer, vocational case manager)? Give summary @ -[No] Was smoking cessation discussed for >3mins.? @ -[No] Was critical care preformed (if so, how long)? @ -[No] Were there social determinants of health that impacted care today? How? (Homelessness, low income, unemployed, alcoholism, drug addiction, transportation, low edu. Level, literacy, decrease access to med. care, half-way, rehab)? @ -[No] Was there de-escalation of care discussed even if they declined (Discuss DNR or withdrawal of care, Hospice)? DNR status @ -[No] What co-morbidities impacted this encounter? (DM, HTN, Smoking, COPD, CAD, Cancer, CVA, ARF, Chemo, Hep., AIDS, mental health diagnosis, sleep apnea, morbid obesity)? @ -[Chronic renal disease Was patient admitted / discharged? Hospital course, mention meds given and route, prescriptions, significant lab abnormalities, going to OR and other pertinent info. @ -[This patient is a 78-year-old woman who received a call to come in and be evaluated for hyperkalemia. On arrival the patient does not look markedly hypokalemic, lab testing reveals only mild elevation. Patient is at this point stable for outpatient treatment. Discussed appropriate further care and follow- up as well as return parameters Undiagnosed new problem with uncertain prognosis? @ -[No] Drug Therapy requiring intensive monitoring for toxicity (Heparin, Nitro, Ins ulin, Cardizem)? @ -[No] Were any procedures done? @ -[No] Diagnosis/symptom? @ -[Acute mild hyperkalemia Acute, or Chronic, or Acute on Chronic? @ -[Acute Uncomplicated (without systemic symptoms) or Complicated (systemic symptoms)? @ -[Uncomplicated Side effects of treatment? @ -[No] Exacerbation, Progression, or Severe Exacerbation? @ -[No] Poses a threat to life or bodily function? How? (Chest pain, [place], [place], pneumonia, PE, COPD, DKA, ARF, appy, cholecystitis, CVA, Diverticulitis, Homicidal, Suicidal, threat to staff... and all critical care pts) @ -[No] (Tai Maurer) - Lab Data Lab Results 12/20/23 12/20/23 12/20/23 Range/Units 21:24 21:24 21:24 WBC 9.4 (3.8-10.6) k/uL RBC 3.41 L (3.80-5.40) m/uL Hgb 9.9 L (11.4-16.0) gm/dL Hct 30.0 L (34.0-46.0) % MCV 87.9 (80.0-100.0) fL MCH 28.9 (25.0-35.0) pg MCHC 32.9 (31.0-37.0) g/dL RDW 15.9 H (11.5-15.5) % Plt Count 205 (150-450) k/uL MPV 10.1 Neutrophils % 84 % Lymphocytes % 6 % Monocytes % 6 % Eosinophils % 2 % Basophils % 0 % Neutrophils # 7.9 H (1.3-7.7) k/uL Lymphocytes # 0.6 L (1.0-4.8) k/uL Monocytes # 0.6 (0-1.0) k/uL Eosinophils # 0.2 (0-0.7) k/uL Basophils # 0.0 (0-0.2) k/uL PT 10.2 (10.0-12.5) sec INR 0.9 (<1.2) APTT 25.7 (22.0-30.0) sec Sodium 139 (137-145) mmol/L Potassium 5.3 H (3.5-5.1) mmol/L Chloride 114 H (98-107) mmol/L Carbon Dioxide 19 L (22-30) mmol/L Anion Gap 6 mmol/L BUN 29 H (7-17) mg/dL Creatinine 1.80 H (0.52-1.04) mg/dL Est GFR (CKD-EPI)AfAm 30 (>60 ml/min/1.73 sqM) Est GFR (CKD-EPI)NonAf 26 (>60 ml/min/1.73 sqM) Glucose 71 L (74-99) mg/dL Calcium 8.8 (8.4-10.2) mg/dL Total Bilirubin 0.6 (0.2-1.3) mg/dL AST 19 (14-36) U/L ALT 11 (4-34) U/L Alkaline Phosphatase 101 (38-126) U/L Troponin I (0.000-0.034) ng/mL Total Protein 7.0 (6.3-8.2) g/dL Albumin 4.1 (3.5-5.0) g/dL 12/20/23 Range/Units 21:24 WBC (3.8-10.6) k/uL RBC (3.80-5.40) m/uL Hgb (11.4-16.0) gm/dL Hct (34.0-46.0) % MCV (80.0-100.0) fL MCH (25.0-35.0) pg MCHC (31.0-37.0) g/dL RDW (11.5-15.5) % Plt Count (150-450) k/uL MPV Neutrophils % % Lymphocytes % % Monocytes % % Eosinophils % % Basophils % % Neutrophils # (1.3-7.7) k/uL Lymphocytes # (1.0-4.8) k/uL Monocytes # (0-1.0) k/uL Eosinophils # (0-0.7) k/uL Basophils # (0-0.2) k/uL PT (10.0-12.5) sec INR (<1.2) APTT (22.0-30.0) sec Sodium (137-145) mmol/L Potassium (3.5-5.1) mmol/L Chloride (98-107) mmol/L Carbon Dioxide (22-30) mmol/L Anion Gap mmol/L BUN (7-17) mg/dL Creatinine (0.52-1.04) mg/dL Est GFR (CKD-EPI)AfAm (>60 ml/min/1.73 sqM) Est GFR (CKD-EPI)NonAf (>60 ml/min/1.73 sqM) Glucose (74-99) mg/dL Calcium (8.4-10.2) mg/dL Total Bilirubin (0.2-1.3) mg/dL AST (14-36) U/L ALT (4-34) U/L Alkaline Phosphatase (38-126) U/L Troponin I <0.012 (0.000-0.034) ng/mL Total Protein (6.3-8.2) g/dL Albumin (3.5-5.0) g/dL Disposition <David Schroeder - Last Filed: 12/20/23 18:58> Is patient prescribed a controlled substance at d/c from ED?: No <Tai Maurer - Last Filed: 01/06/24 12:08> Clinical Impression: Hyperkalemia Disposition: HOME SELF-CARE Condition: Good Instructions (If sedation given, give patient instructions): Hyperkalemia (ED) Referrals: Richard Rodriguez DO [Primary Care Provider] - 1-2 days
--- NOTE | 2023-12-20 21:40 | XR ---
EXAMINATION TYPE: XR chest 2V DATE OF EXAM: 12/20/2023 COMPARISON: 11/15/2019 INDICATION: Abnormal labs TECHNIQUE: Frontal and lateral views of the chest are obtained. FINDINGS: The heart size is enlarged. The pulmonary vasculature is normal. The lungs are clear. Electronic device overlies the left chest. IMPRESSION: 1. Cardiomegaly. 2. No acute pulmonary process radiographically evident. [facility], Workstation: [email or web address], 12/20/2023 9:37 PM
[2023-12-20 22:01] LABS: Basophils % (A) 0 %; Eosinophils # (A) 0.2 k/uL (0-0.7); Eosinophils % (A) 2 %; HGB 9.9 gm/dL (11.4-16.0); Lymphocytes # (A) 0.6 k/uL (1.0-4.8); Lymphocytes % (A) 6 %; MCH 28.9 pg (25.0-35.0); MCHC 32.9 g/dL (31.0-37.0); MCV 87.9 fL (80.0-100.0); Mean Platelet Volume 10.1; Monocytes # (A) 0.6 k/uL (0-1.0); Monocytes % (A) 6 %; Neutrophils # (A) 7.9 k/uL (1.3-7.7); Neutrophils % (A) 84 %; Platelet Count 205 k/uL (150-450); RBC 3.41 m/uL (3.80-5.40); RDW 15.9 % (11.5-15.5); WBC 9.4 k/uL (3.8-10.6)
[2023-12-20 22:12] LABS: INR 0.9 (<1.2); Partial Thromboplastin Time 25.7 sec (22.0-30.0); Prothrombin Time 10.2 sec (10.0-12.5)
[2023-12-20 22:43] LABS: ALT 11 U/L (4-34); AST 19 U/L (14-36); African American GFR (CKD) 30 (>60 ml/min/1.73 sqM); Albumin 4.1 g/dL (3.5-5.0); Alkaline Phosphatase 101 U/L (38-126); Anion Gap 6 mmol/L; Blood Urea Nitrogen 29 mg/dL (7-17); Calcium 8.8 mg/dL (8.4-10.2); Carbon Dioxide 19 mmol/L (22-30); Chloride 114 mmol/L (98-107); Glucose 71 mg/dL (74-99); Non-African American GFR(CKD) 26 (>60 ml/min/1.73 sqM); Potassium 5.3 mmol/L (3.5-5.1); Sodium 139 mmol/L (137-145); Total Bilirubin 0.6 mg/dL (0.2-1.3)
[2023-12-21] MEDS: SODIUM ZIRCONIUM CYCLOSILICATE 10 GM PACKET PO ONE (01:03)
[2023-12-21 01:07] VITALS: BP 162/66; PULSE 70; RESP 18; TEMP 97
== END 2023-12-21 01:21 | disposition home or self-care (01) ==
LOC: EC 18:12
DX: E87.5 Hyperkalemia (principal); E11.22 Type 2 diabetes mellitus with diabetic chronic kidney disease; N18.9 Chronic kidney disease, unspecified; Z88.0 Allergy status to penicillin; Z91.018 Allergy to other foods; Z91.041 Radiographic dye allergy status
CPT/HCPCS: 36415; 71046; 80053; 84484; 85025; 85610; 85730; 93005; 99283; 99284